=== PATIENT | female | born 1945 | race Caucasian/White ===

== ENCOUNTER 2024-04-29 10:08 | Inpatient (IN) | payer MEDICARE, BC, SELFPAY ==
[2024-04-29] VITALS (11 sets, daily range): BP systolic 95–151; BP diastolic 44–64; BMI 24.5
--- NOTE | 2024-04-29 10:59 | PTCARENOTE ---
Received patient as a direct admit from [facility]. Oriented patient to room as got her settled. Waiting for MD's for orders. Patient reports pain at upper abdomen rating 5/10. Patient has been NPO since last night, took morning
medications this morning but vomited after taking them. ST on monitor , low 100's. Spo2 96% on room air, 138/62, 19.
[2024-04-29 11:45] LABS: Hematocrit 27.3 % (37.0-47.0); Hemoglobin 9.4 g/dL (12.0-16.0); Mean Corp Hgb Conc. 34.4 g/dL (33.0-37.0); Mean Corpuscular Hgb 32.8 pg (27.0-31.0); Mean Corpuscular Volume 95.1 fL (81.0-99.0); Platelet Count 211 10^3/uL (130-400); Red Blood Cell Count 2.87 10^6/uL (4.20-5.40); Red Cell Dist. Width 14.1 % (11.5-14.5); White Blood Cell Count 22.3 10^3/uL (4.8-10.8)
[2024-04-29 11:52] LABS: ALT (SGPT) 167 U/L (0-35); AST (SGOT) 209 U/L (14-36); Albumin 3.5 g/dl (3.5-5.0); Alkaline Phosphatase 165 U/L (38-126); Blood Urea Nitrogen 36 mg/dl (7-17); Calcium 8.1 mg/dl (8.4-10.2); Carbon Dioxide 19 mmol/L (22-30); Chloride 109 mmol/L (98-107); Estimated Creatinine Clearance 35 ml/min; Glucose 186 mg/dl (70-99); Potassium 4.6 mmol/L (3.5-5.1); Sodium 142 mmol/L (135-145); Total Bilirubin 5.2 mg/dl (0.2-1.3); Total Protein 5.7 g/dl (6.3-8.2); eGFR 45.76
--- NOTE | 2024-04-29 12:02 | HPS.HSE ---
Addendum entered and electronically signed by Jose Razo MD 04/29/24 14:22:
78 female history of NIDDM, DDD, lumbar stenosis, hypertension, hypercholesterolemia presents from outside hospital for ERCP. Noted acute onset abdominal pain, epigastric, CT imaging demonstrating stone in the common bile duct along with
transaminitis elevated lipase. Therefore transferred to [facility] for ERCP evaluation. NPO. GI consult. Plan for ERCP later in the day.
If found to have elevated troponin as well. EKG pending on monitoring engineer. Cardiology consulted.
Original Note:
Family Physician
-
Family Physician: Ashleigh Otoole MD
Chief Complaint
-
Abdominal pain
History of Present Illness
78 yr old female with history of cholelithiasis (remote), NIDDM, DDD, lumbar stenosis, HTN, hypercholesterolemia, recurrent UTIs, who was transferred to from [facility] after she presented there at 2am with abdominal pain. While I don't
have access to records, history from the patient indicates that imaging results show cholelith in common bile duct with transaminitis and elevated lipase.
Patient had dinner at 6 PM yesterday with no complaints. Sudden onset of severe epigastric abdominal pain starting 9 PM last night with nausea and vomiting. She tried to take her morning medications this morning but threw them up. She has had no
solids, and has been unable to keep liquids down since.
She reports chills, nausea/ excess burping, normal bowel movement and normal flatus. Denies fever, bloating, or urinary symptoms.
Pain was controlled with Morphine at the time of my exam.
Medical History
Past Medical History
Past Medical History: Reports HTN, Hypercholesterolemia and NIDDM
Past Surgical History: Reports , Gynocological (tubal ligation), Orthopedic (left carpal tunnel release) and Other (cataract)
Social History
Tobacco: Non-smoker
Alcohol: None
Drug: None
Personal:
Living: With Family
Family History
Family History: Not pertinent
Allergies / Home Medications
Allergies reflects when Allergies were last updated in [facility].
Home Medications with original date entered in [facility]
Allergy/Medication List:
Allergies
Allergy/AdvReac Type Severity Reaction Status Date / Time
No Known Allergies Allergy Verified 04/29/24 11:05
Home Medications
Amlodipine Besylate 10 mg PO DAILY 04/29/24
B12 04/29/24
Prolia 60 mg SC 04/29/24
Trulicity 1.5 mg SC DAILY 04/29/24
Vitamin D3 04/29/24
alprazolam 0.5 mg HSPRN PRN sleep 04/29/24
carvedilol 6.25 mg PO BID 04/29/24
fenofibrate 48 mg PO DAILY 04/29/24
gabapentin 300 mg PO TID 04/29/24
metformin 1,000 mg PO BID 04/29/24
rosuvastatin 10 mg PO DAILY 04/29/24
Review of Systems
-
History Source: Patient
Constitutional: Reports Chills; Denies Fever or Night Sweats
Respiratory: Denies Trouble Breathing
Cardiac: Denies Chest Pain or Palpitations
Abdomen/GI: Reports Abdominal Pain, Nausea and Vomiting; Denies Diarrhea, Constipated or Bloody Stools
: Denies Dysuria, Difficulty Voiding or Bleeding
Physical Exam
Physical Exam
General: Well Developed, Well Nourished, No Apparent Distress and Comfortable
HEENT: NormoCephalic and Other (dry mucous membranes)
Respiratory: Clear and Non Labored Respirations; No Wheezes, Rales, Rhonchi or Crackles
Cardiac: S1/S2, Regular Rhythm and Murmur (systolic); No Peripheral Edema or Calf Tenderness
GI: Soft, Non Distended, Normal Bowel Sounds, Tender (RUQ, epigastrium) and Other (ayala's sign positive. no rebound or guarding)
Genito-urinary: No costovertebral tender
Musculoskeletal: No Clubbing, No Cyanosis and No Edema
Skin: Warm and Dry
Neuro: Awake and Alert
Psych: Calm
Laboratory Results
-
04/29/24 11:
04/29/24:
Laboratory Results
Total Bilirubin 5.2 mg/dl (0.2-1.3) H 04/29/24:
AST 209 U/L (14-36) H 04/29/24:
ALT 167 U/L (0-35) H 04/29/24:
Alkaline Phosphatase 165 U/L (38-126) H 04/29/24:
Impression/Plan
-
IMPRESSION: 78 year old female who presents with RUQ and epigastric abdominal pain
PLAN:
Abdominal pain
Severe RUQ and epigastric pain. Known remote history of cholelithiasis. Likely choledocholithiasis
Leukocytosis, transaminitis, hyperbilirubinemia
- Get lipase
- Pain control, IVF
- Will consult GI, potential ERCP
- Surgery consult
Leukocytosis:
Likely reactive. Afebrile
- Monitor, follow temperature curve
Non insulin dependent diabetes mellitus:
- Hold Metformin
- SSI, accuchecks, carb controlled diet when diet is resumed
Hyperlipidemia:
- Hold fenofibrate and Rosuvastatin given transaminitis
CKD
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
- Cr 1.2, unknown baseline
- avoid nephrotoxic agents
- Continue IVF
Hypertension:
- hold Amlodipine
- Continue Carvedilol
DDD/lumbar stenosis:
DVT ppx: SCDs
Code status: Full code
[2024-04-29 12:17] LABS: INR 1.12; PT 14.3 Sec (11.4-14.6)
[2024-04-29 12:18] LABS: APTT 25.7 Sec (23.4-35.0)
[2024-04-29 12:36] LABS: Troponin I 0.354 ng/ml
[2024-04-29] MEDS: MORPHINE SULFATE 2 MG IV (12:36)
[2024-04-29] MEDS: NSS 1000 IV (12:37)
[2024-04-29] MEDS: FLUSH (NSS) 1 FLUSH IV (12:38)
[2024-04-29 14:03] LABS: Absolute Neutrophils -Man Diff 20.5 10^3/uL (1.4-6.5); Band Neutrophils 12 % (0-3); Lymphocytes 3 % (20-51); Monocytes 5 % (2-9); Platelets Checked Yes; Segmented Neutrophils 80 % (42-75)
[2024-04-29 14:04] LABS: Anisocytosis 1+; Hypochromasia 1+; Normal RBC Morphology No; Total Cells Counted 100
[2024-04-29 14:55] LABS: Lipase 476 U/L (23-300)
--- NOTE | 2024-04-29 15:38 | CON.CAR ---
Addendum entered and electronically signed by Marcin Solano MD 04/30/24 11:34:
Please see my full note to follow on 30 April
Addendum entered and electronically signed by Yareli Escobar DO 04/29/24 19:35:
I saw and examined the patient.
The Voice Systems Engineer's note was reviewed and I agree with the note.
Comment: Patient seen and examined in IMU room with 3356 after being transferred from [facility] for ERCP. at bedside. Patient is an 78 yo F with PMH of HTN, HLD, DM2, spinal stenosis, essential tremor, recurrent UTIs, heart
murmur followed by [facility] who presented to [facility] due to abd pain which started yesterday around 9PM After several hours of constant upper quadrant abdominal pain that was severe resulting in nausea and vomiting . She ate around
6PM yesterday. She was diagnosed with choledocholithiasis and was transferred to for ERCP. In [place] ER was noted to have elevated troponin of 101 (different assay than completed here). This was reviewed with cardiology per [place] ER
notes and felt to be cardiac strain rather than primary cardiac event;Cardiology was not consulted. Trop here on arrival 0.354. No CP. EKG SR with RBBB, stable to EKG completed at [place]. Cardiology consulted for eval of elevated troponin. Need
for urgent ERCP due to uptrending lactic and elevated white count. Abd pain improved with morphine. Patient denies a history of known coronary artery stenosis/prior MD, arrhythmia, heart failure, stroke or TIA. She denies recent stress testing.She
is relatively sedentary with severe back pain that limits walking and standing; estimated exercise capacity less than 4 METS
General: No acute distress, AAOX3
Neck: Negative JVD
Heart: Regular, positive S1/S2, 3/6 SM at apex
Lungs: CTA b/l, negative wheezes/rales/rhonchi
Abd:Distended abdomen tender upper quadrants without rebound, Positive bowelSounds
Ext: No edema
Neuro: nonfocal
Plan:
-Patient presents in transfer from [facility] for ERCP due to concern for choledocholithiasis/cholangitis For urgent ERCP with GI
-Cardiology consulted for preoperative cardiac risk assessment:Patient has outpatient cardiac follow-up routinely with [facility] in [place] for a valve disease. On exam she has a murmur consistent with mitral regurgitation. She has no
history of known coronary artery disease or heart failure. She has no history of cardiac arrhythmia or stroke. She is not on diuretics as an outpatient. Bedside echocardiogram shows normal biventricular size and systolic function with no regional
wall motion abnormalities and ejection fraction estimated 60 to 65%. She has mitral sclerosis with mild prolapse of the posterior leaflet associated with multiple jets of likely moderate eccentric mitral regurgitation. Aortic valve is sclerotic
without significant stenosis with no significant aortic regurgitation. Moderate tricuspid regurgitation with estimated pulmonary artery pressures elevated at 60-65%. No pericardial effusion. Her twelve-lead EKG is [facility] yesterday which shows normal sinus rhythm with a right bundle branch block and a T wave abnormality considering inferior ischemia. She has abnormal cardiac troponins with no reports of chest pain and initial troponin here of 0.354.
Discussed with GI services. Patient is elevated risk but not prohibitive and she may proceed.
-Please check postop twelve-lead EKG
-Trend cardiac troponins
-Start aspirin 81 mg daily
-Trend cardiac troponin to peak- Eventual ischemic evaluation
-Attempting to obtain outpatient cardiac records from her automobile salesman
-reviewed records from [place] 04/29/24 including ER notes, EKG.
cholangitis with choledocholithiasis/cholelithiasis with elevated transaminase
-Urgent ERCP given worsening leukocytosis, fever and lactic acid elevation
-Monitor LFTs following procedures
-GI following
Abnormal cardiac troponin with abnormal EKG
-No chest pain or pressure
-Trend cardiac troponin
-2D echocardiogram at bedside without regional wall motion abnormality and preserved LV systolic function
-Start aspirin when okay with GI
-Eventual ischemic evaluation
Mitral sclerosis/mitral valve prolapse with at least moderate mitral regurgitation
-Monitor volume status. Currently euvolemic/mildly dehydrated
-Await records from outpatient automobile salesman
History of hypertension�blood pressures are stable. Monitor closely
History of dyslipidemia�rosuvastatin and fenofibrate currently held in the setting of LFTs. Resume when able
History of type 2 diabetes mellitus on metformin
Will follow with you
Original Note:
Consultation
Consultation Request
Date/Time Consultation Performed: 04/29/24
Requesting Provider: Dr. Peralta
Performing Provider: Katie Alonzo PA-C for Dr. Escobar
Reason for Consultation: elevated troponin
Medical History
-
Chief Complaint: abd pain
History of Present Illness:
Patient is an 78 yo F with PMH of HTN, HLD, DM2, spinal stenosis, essential tremor, recurrent UTIs, [facility] murmur [facility] who presented to [facility] due to abd pain which started yesterday around 9PM. She ate around 6PM
yesterday. Reports pain was severe and constant. She threw up several hours later and came to [place] ER. She was diagnosed with choledocholithiasis and was transferred to for ERCP. In [place] ER was noted to have elevated troponin of 101
(different assay than completed here). This was reviewed with cardiology per [place] ER notes and felt to be cardiac strain rather than primary cardiac event. Trop here on arrival 0.354. No CP. EKG SR with RBBB, stable to EKG completed at .
[facility]. Cardiology consulted for eval of elevated troponin. Need for urgent ERCP due to uptrending lactic and elevated white count. Abd pain improved with morphine.
PMH:
HTN
HLD
DM2
spinal stenosis
essential tremor
recurrent UTIs
heart murmur
Past Medical History
Past Medical History: Other (in HPI)
Social History
Tobacco: Non-Smoker
Personal:
Living: With Family
Allergies / Home Medications
Allergy/AdvReac Type Severity Reaction Status Date / Time
No Known Allergies Allergy Verified 04/29/24 11:05
�Medication �Instructions �Recorded �Confirmed �Type
Amlodipine Besylate 10 mg PO DAILY 04/29/24 04/29/24 History
B12 04/29/24 History
Prolia 60 mg SC 04/29/24 History
Trulicity 1.5 mg SC DAILY 04/29/24 04/29/24 History
Vitamin D3 04/29/24 History
alprazolam 0.5 mg HSPRN PRN sleep 04/29/24 04/29/24 History
carvedilol 6.25 mg PO BID 04/29/24 04/29/24 History
fenofibrate 48 mg PO DAILY 04/29/24 04/29/24 History
gabapentin 300 mg PO TID 04/29/24 04/29/24 History
metformin 1,000 mg PO BID 04/29/24 04/29/24 History
rosuvastatin 10 mg PO DAILY 04/29/24 04/29/24 History
Review of Systems
-
History Source: Patient
All other systems: Negative unless noted
Physical Exam
Vital Signs
Temp Pulse Resp BP Pulse Ox
99.5 F 89 15 111/56 95
04/29/24 10:26 04/29/24 14:45 04/29/24 14:45 04/29/24 14:00 04/29/24 14:45
Lab Results
04/29/24 11:28
04/29/24 11:28
Troponin I Cancelled 04/29/24 15:24
Physical Exam
General: No Apparent Distress, Comfortable and Other (mild jaundice)
HEENT: Normocephalic, Anicteric and Moist Mucous Membranes
Respiratory: Clear and Non Labored Respirations
Cardiac: S1/S2, Regular Rhythm and Murmur
GI: Soft, Non Tender, Non Distended and Normal Bowel Sounds
Musculoskeletal: No Clubbing, No Cyanosis and No Edema
Skin: Warm and Dry
Neuro: AO x 3
Impression / Plan
-
Primary Bus Cleaner: [facility]
Assessment:
-Transfer from [place] for ERCP
-Choledocholithiasis/cholelithiasis, concern for cholangitis
-Transaminitis
-Fever
-Leukocytosis
-Elevated lipase
-Elevated troponin
-HTN
-HLD
-DM2
-spinal stenosis
-essential tremor
-recurrent UTIs
-heart murmur
Plan:
-Patient presents in transfer from [facility] for ERCP due to concern for choledocholithiasis/cholangitis.
-reviewed records from [place] 04/29/24 including ER notes, EKG. attempting to obtain records from OP automobile salesman for review
-Trop here uptrending from [place] at 0.354. stat repeat trop pending. no CP
-EKG SR with RBBB, stable compared to that from [place] earlier today
-urgent echo
-ideally would complete ERCP today per GI. on IV abx
-if echo ok and trop flat/downtrending, ok to proceed with urgent ERCP
-d/w GI
Data Reviewed
-
EKG: Tracing Personally Visualized and interpreted
CT Scan: Report Reviewed by me
Labs: Labs Reviewed by me
Old Records: Reviewed
--- NOTE | 2024-04-29 15:47 | CON.GI ---
Addendum entered and electronically signed by Agustín Squires MD 04/29/24 16:45:
I saw and examined the patient.
The PA's note was reviewed and I agree with the note.
Comment:
78 year old female with h/o DM, HTN, hyperlipidemia, and recurrent UTIs p/w abdo pain and found to be cholangitic. Leukocytosis of 12k on admission, lactic acid elevation of 2.2. LFT elevated with bili 4.1 with a direct of 2.9, AST 199, ALT 177.
Febrile at [facility]. Worsening leukocytosis with WBC 22k, total bilirubin 5.2, AST 209, ALT 167, alk phos 165 today.
Impression / Rec:
1. Cholangitis - admitted with abdo pain, CT at [facility] showed choledocholithiasis/cholelithiasis. LFT elevated in obstructive pattern, febrile at [facility] and worsening leukocytosis are all consistent with cholangitis.
Started on zosyn. Hemodynamically stable. Will proceed with urgent ERCP.
2. Elevated troponin - 0.354; had bedside echo which was essentially normal. Will proceed with ERCP as intended.
Original Note:
Consultation
-
Date/Time Consultation Requested: 04/29/24 1149
Date/Time Consultation Performed: 04/29/24 1500
Requesting Provider: Dr. Irvin
Performing Provider: Dr. Squires/DESIREE Tuttle
Reason for Consultation: choledocholithiasis
Medical History
Chief Complaint / HPI
Chief Complaint: choledochilithiasis, TRF from [facility]
History of Present Illness:
78-year-old female with past medical history of diabetes, degenerative disc disease, lumbar stenosis, hypertension, hyperlipidemia, recurrent UTIs presents to [facility] from [facility] for choledocholithiasis and need for
ERCP. We are asked to evaluate for the same. The patient states that 9 PM last evening she developed acute onset of epigastric discomfort. This was associated with nausea and vomiting. The patient states that she ate a couple hours prior that
was chicken lettuce wraps. She states that she had significant discomfort that she describes as dull, constant, nonradiating, nothing made better or worse. By 1 AM she started trembling in such pain that her brought her to the emergency
department at [facility]. The patient was afebrile there. She had a heart rate of 111 and a BP of 124/51. She was found to have a WBC count of 12.2, hemoglobin 10.6, hematocrit of 30.6, platelets of 236, lactic acid elevation of 2.2,
blood cultures x 2 were drawn. Sodium 138, potassium 4.4, chloride 106, CO2 16, glucose 208, BUN 40, creatinine 1.24, total bilirubin 4.1 with a direct of 2.9, AST 199, ALT 177, initial high-sensitivity troponin performed at 0546 was 101 this was
repeated and was 201. EKG that showed sinus tachycardia with first-degree AV block. Right bundle branch block. T wave abnormality, consider inferior lateral ischemia. Ultrasound was performed that showed liver 16.9 cm in length. Normal
echogenicity. No mass. There is intrahepatic and extrahepatic biliary dilatation. Gallbladder numerous gallstones present. Negative Plunkett sign. CBD 12 mm. Choledocholithiasis present. Pancreas no mass or ductal dilatation. Right kidney 9.6
cm. No hydronephrosis, suspicious mass or calculus. Multiple renal cyst present. CT abdomen and pelvis with contrast showed severe choledocholithiasis. Intrahepatic and extrahepatic biliary dilatation. Gallstone present. Mild gallbladder wall
thickening present. Ultrasound recommended. The patient was given Zosyn while at [facility]. She was also given 2 doses of morphine while there. This relieves her symptoms. The patient was then transferred to [facility]
where she remained n.p.o. EKG was obtained. Cardiology consulted. Labs obtained. Patient's vital signs here 99.5, pulse 89, 111/56, 15, pulse ox 95% on room air. WBC 22.3, hemoglobin 9.4, hematocrit 27.3, platelets 211, bands 12, PT 14.3, INR
1.12, sodium 142, potassium 4.6, chloride 109, CO2 19, BUN 36, creatinine 1.12, glucose 186, calcium 8.1, total bilirubin 5.2, AST 209, ALT 167, alk phos 165, troponin 0. 354, lipase 476. No further imaging she has received an additional dose of
morphine while here.
Past Medical History
Past Medical History: HTN, Hypercholesterolemia and Other (Diabetes, degenerative disc disease, lumbar stenosis, recurrent UTIs)
Past Surgical History: , Gynecological (Tubal ligation), Orthopedic (Left carpal tunnel release) and Other (Cataract)
Social History
Tobacco: Non-Smoker
Alcohol: None
Drug: None
Personal:
Living: With Family
Family History
Family History: Other (No family history of gastrointestinal malignancy or IBD)
Allergies / Home Medications
Allergy/AdvReac Type Severity Reaction Status Date / Time
No Known Allergies Allergy Verified 04/29/24 11:05
�Medication �Instructions �Recorded
Amlodipine Besylate 10 mg PO DAILY 04/29/24
B12 04/29/24
Prolia 60 mg SC 04/29/24
Trulicity 1.5 mg SC DAILY 04/29/24
Vitamin D3 04/29/24
alprazolam 0.5 mg HSPRN PRN sleep 04/29/24
carvedilol 6.25 mg PO BID 04/29/24
fenofibrate 48 mg PO DAILY 04/29/24
gabapentin 300 mg PO TID 04/29/24
metformin 1,000 mg PO BID 04/29/24
rosuvastatin 10 mg PO DAILY 04/29/24
Review of Systems
-
All other systems: A 12 pt ROS was Negative except as stated above in HPI
Vital Signs
Temp Pulse Resp BP Pulse Ox
99.5 F 89 15 111/56 95
04/29/24 10:26 04/29/24 14:45 04/29/24 14:45 04/29/24 14:00 04/29/24 14:45
Physical Exam
Exam
General: No Apparent Distress
HEENT: Other (Sclera mildly icteric)
Respiratory: Clear
Cardiac: Regular Rhythm and Murmur
GI: Soft, Non Distended, Normal Bowel Sounds and Other (Mild right upper quadrant/epigastric tenderness)
Musculoskeletal: No Edema
Skin: Warm and Dry
Neuro: AO x 3
Psych: Calm
Results
WBC 22.3 10^3/uL (4.8-10.8) H 04/29/24 11:28
Hgb 9.4 g/dL (12.0-16.0) L 04/29/24 11:
Hct 27.3 % (37.0-47.0) L 04/29/24 11:28
MCV 95.1 fL (81.0-99.0) 04/29/24 11:28
Plt Count 211 10^3/uL (130-400) 04/29/24 11:28
PT 14.3 Sec (11.4-14.6) 04/29/24 11:39
INR 1.12 04/29/24 11:39
APTT 25.7 Sec (23.4-35.0) 04/29/24 11:39
Sodium 142 mmol/L (135-145) 04/29/24 11:28
Potassium 4.6 mmol/L (3.5-5.1) 04/29/24 11:
Chloride 109 mmol/L (98-107) H 04/29/24 11:28
Carbon Dioxide 19 mmol/L (22-30) L 04/29/24 11:28
BUN 36 mg/dl (7-17) H 04/29/24 11:28
Creatinine 1.2 mg/dL (0.6-1.0) H 04/29/24 11:28
Calcium 8.1 mg/dl (8.4-10.2) L 04/29/24 11:28
Total Bilirubin 5.2 mg/dl (0.2-1.3) H 04/29/24 11:28
AST 209 U/L (14-36) H 04/29/24 11:28
ALT 167 U/L (0-35) H 04/29/24 11:28
Alkaline Phosphatase 165 U/L (38-126) H 04/29/24 11:28
Lipase 476 U/L (23-300) H 04/29/24 11:28
Diagnostic Image Results:
Prior GI Procedures:
EGD: Never
Colonoscopy: Virtual colonoscopy approximately 8 to 10 years ago
Assessment / Plan
-
78-year-old female with past medical history of diabetes, degenerative disc disease, lumbar stenosis, hypertension, hyperlipidemia, recurrent UTIs presents to [facility] from [facility] for choledocholithiasis and need for
ERCP. She was found to have a WBC count of 12.2, hemoglobin 10.6, hematocrit of 30.6, platelets of 236, lactic acid elevation of 2.2, blood cultures x 2 were drawn. Sodium 138, potassium 4.4, chloride 106, CO2 16, glucose 208, BUN 40, creatinine
1.24, total bilirubin 4.1 with a direct of 2.9, AST 199, ALT 177. Repeat labs here WBC 22.3, hemoglobin 9.4, hematocrit 27.3, platelets 211, bands 12, PT 14.3, INR 1.12, sodium 142, potassium 4.6, chloride 109, CO2 19, BUN 36, creatinine 1.12,
glucose 186, calcium 8.1, total bilirubin 5.2, AST 209, ALT 167, alk phos 165, worsening white count and bands after receiving Zosyn at [facility] with concerns for cholangitis. Patient is starting to develop fever. Cardiology has
seen patient given elevated troponin for restratification as patient and need for ERCP. Discussed with Cardiology and will proceed with ERCP. Discussed with patient and as well.
Impression:
Choledocholithiasis with signs and symptoms of cholangitis
Elevated lipase
Elevated troponin
Plan:
-Patient n.p.o.
-Continue IV fluids
-Start Zosyn 3.375 gm IV q6 here, did receive Zosyn 4.5 gm IV at [facility] at 0637
-ERCP today
-CBC, CMP, direct bilirubin in am
-Further recommendations to be forthcoming
-
-
Thank you for consultation and allowing me to participate in the patient's care. Please call the exceptional children teacher GI physician during the after hours with any questions or concerns.
[2024-04-29] MEDS: ZOSYN 50 IV ×2 (16:26→21:19)
[2024-04-29 16:31] LABS: Glucose - Point of Care 219 mg/dl (70-99)
--- NOTE | 2024-04-29 16:55 | PTCARENOTE ---
Patient NPO for ERCP. IV fluids and zosyn infusing as ordered. Patient pain controlled with one dose of IV morphine sulfate. Echo done at bedside. Patient off unit to GI lab. Report given to Jennifer ECHOLS. Patient to go to [address] [place] [id number] post
procedure.
[2024-04-29 16:58] LABS: Troponin I 0.508 ng/ml
[2024-04-29 17:54] LABS: Glucose - Point of Care 263 mg/dl (70-99)
[2024-04-29] MEDS: NOVOLOG vial 2 UNITS SC (17:58)
[2024-04-29] MEDS: NEURONTIN PO ×2 (18:37→21:16)
[2024-04-29] MEDS: NOVOLOG FLEXPEN-LOW RESISTANCE SC (18:38)
--- NOTE | 2024-04-29 18:45 | PTCARENOTE ---
Pt received from the PACU post ERCP AAOX3, HRR, lungs are clear, resp. easy. Pt and Pt's instructed on plan of care, Both Pt and verbalized understanding of instructions. Pt arrived at shift change. Verbal report given to the on
coming shift RN. Call kellogg is within reach.
[2024-04-29] MEDS: LR 500 IV (19:21)
[2024-04-29] MEDS: LOW STRENGTH ASPIRIN 81 MG PO (20:41)
[2024-04-29 21:39] LABS: Troponin I 0.493 ng/ml
[2024-04-30] MEDS: NSS 1000 IV (01:28)
[2024-04-30 03:00] VITALS: BP 102/48
[2024-04-30] MEDS: ZOSYN 50 IV ×4 (04:49→22:20)
[2024-04-30 05:35] LABS: Hematocrit 23.2 % (37.0-47.0); Hemoglobin 7.9 g/dL (12.0-16.0); Mean Corp Hgb Conc. 34.1 g/dL (33.0-37.0); Mean Corpuscular Hgb 32.1 pg (27.0-31.0); Mean Corpuscular Volume 94.3 fL (81.0-99.0); Mean Platelet Volume 11.7 fL (7.4-10.4); Platelet Count 185 10^3/uL (130-400); Red Blood Cell Count 2.46 10^6/uL (4.20-5.40); Red Cell Dist. Width 14.3 % (11.5-14.5); White Blood Cell Count 16.6 10^3/uL (4.8-10.8)
[2024-04-30 06:00] LABS: ALT (SGPT) 148 U/L (0-35); AST (SGOT) 170 U/L (14-36); Albumin 2.8 g/dl (3.5-5.0); Alkaline Phosphatase 124 U/L (38-126); Blood Urea Nitrogen 38 mg/dl (7-17); Calcium 7.2 mg/dl (8.4-10.2); Carbon Dioxide 16 mmol/L (22-30); Chloride 111 mmol/L (98-107); Estimated Creatinine Clearance 30 ml/min; Glucose 118 mg/dl (70-99); Potassium 4.2 mmol/L (3.5-5.1); Sodium 143 mmol/L (135-145); Total Bilirubin 4.6 mg/dl (0.2-1.3); Total Protein 5.1 g/dl (6.3-8.2); eGFR 38.03
[2024-04-30 07:05] VITALS: BP 100/45
[2024-04-30] MEDS: 0.45%NACL 1000 IV (09:37)
[2024-04-30] MEDS: COREG 3.125 MG PO ×2 (09:39→20:53)
[2024-04-30] MEDS: LOW STRENGTH ASPIRIN 81 MG PO (09:39)
[2024-04-30] MEDS: NEURONTIN 300 MG PO (09:39)
[2024-04-30 09:41] LABS: Glucose - Point of Care 164 mg/dl (70-99)
[2024-04-30] MEDS: NOVOLOG FLEXPEN-LOW RESISTANCE 1 UNITS SC (10:09)
--- NOTE | 2024-04-30 10:56 | W.PN.GI.CBS2 ---
Today's Communication / Plan
-
Advance diet as tolerated, GI s/o.
Assessment / Plan
-
78-year-old female with past medical history of diabetes, degenerative disc disease, lumbar stenosis, hypertension, hyperlipidemia, recurrent UTIs presents to [facility] from [facility] for choledocholithiasis and need for
ERCP. She was found to have a WBC count of 12.2, hemoglobin 10.6, hematocrit of 30.6, platelets of 236, lactic acid elevation of 2.2, blood cultures x 2 were drawn. Sodium 138, potassium 4.4, chloride 106, CO2 16, glucose 208, BUN 40, creatinine
1.24, total bilirubin 4.1 with a direct of 2.9, AST 199, ALT 177. Repeat labs here WBC 22.3, hemoglobin 9.4, hematocrit 27.3, platelets 211, bands 12, PT 14.3, INR 1.12, sodium 142, potassium 4.6, chloride 109, CO2 19, BUN 36, creatinine 1.12,
glucose 186, calcium 8.1, total bilirubin 5.2, AST 209, ALT 167, alk phos 165, worsening white count and bands after receiving Zosyn at [facility] with concerns for cholangitis. Patient is starting to develop fever. Cardiology has
seen patient given elevated troponin for restratification as patient and need for ERCP. Discussed with Cardiology and will proceed with ERCP. Discussed with patient and as well.
ERCP yesterday with extraction of multiple stones, also some pus drained. No stent placed as balloon sphincteroplasty was performed with good dilation of ampulla. Pt feels much improved from abdo pain. Leukocytosis/LFT improving. Can advance
diet as tolerated, cholecystectomy as per surgery, GI s/o.
Total Time Spent with Patient (in minutes): 35
Subjective
Subjective
Date of Service: April 30, 2024
Feeling much improved today.
Objective
Data Reviewed
Laboratory Data:
Laboratory Results
04/30/24 04:20
04/30/24 04:20
Laboratory Results
PT 14.3 Sec (11.4-14.6) 04/29/24 11:39
INR 1.12 04/29/24 11:39
APTT 25.7 Sec (23.4-35.0) 04/29/24 11:39
Total Bilirubin 4.6 mg/dl (0.2-1.3) H 04/30/24 04:20
AST 170 U/L (14-36) H 04/30/24 04:20
ALT 148 U/L (0-35) H 04/30/24 04:20
Alkaline Phosphatase 124 U/L (38-126) 04/30/24 04:20
Lipase 476 U/L (23-300) H 04/29/24 11:28
Vital Signs and I&O:
Vital Signs
Temp Pulse Resp BP Pulse Ox
98.6 F 73 16 100/45 97
04/30/24 07:05 04/30/24 07:05 04/30/24 07:05 04/30/24 09:39 04/30/24 07:05
I&O
04/29/24 04/30/24 05/01/24
06:59 06:59 06:59
Intake Total 640 / 640 370 / 370
Balance 640 / 640 370 / 370
--- NOTE | 2024-04-30 11:01 | W.PN.HOSP.TC ---
Addendum entered and electronically signed by Jose Razo MD 04/30/24 13:40:
Presented from outside hospital for ERCP evaluation as imaging at that hospital demonstrated choledocholithiasis. Also noted to have transaminitis. She is now s/p ERCP on 04/29/2024 with removal of multiple stones and purulent drainage. Noted at
previous facility that she was febrile. After concern for cholangitis. At this time states she feels much better no further pain no nausea vomiting. No fevers.
12 point ROS completed at all negative apart from as above.
Imaging
FINDINGS/IMPRESSION:
1. ERCP images obtained during ongoing sphincterotomy
Impression:
- Multiple filling defects consistent with stones were
seen on the cholangiogram.
- The entire main bile duct was mildly dilated.
- Choledocholithiases were found. Complete removal was
accomplished by biliary sphincterotomy and balloon
extraction.
- A biliary sphincterotomy was performed.
- Major papilla was successfully dilated.
- The biliary tree was swept and pus and sludge were
found.
2c echo
CONCLUSIONS
Normal left ventricular size and systolic function with normal regional wall
motion
Mild concentric left ventricular hypertrophy
Left ventricular ejection fraction estimated by Scott's method 60-65%
Grade 1 diastolic dysfunction
Normal RV size and systolic function
Mitral sclerosis with mild prolapse of the posterior leaflet associate with
multiple jets of eccentric mitral regurgitation that is likely moderate
Trileaflet sclerotic aortic valve without significant stenosis. No aortic
regurgitation
Moderate tricuspid regurgitation
Estimated pulmonary artery pressure of 60-65 mmHg. Assuming a right atrial
pressure of 3 mmHg.
Normal pericardium without effusion.
No prior study available for comparison.
Physical Exam
NAD, resting comfortably in bed, jaundice
Scleral icterus
Moist mucous membranes
No JVD
CTA bilateral
Normal S1-S2 no murmurs
Soft nontender nondistended bowel sounds active
No peripheral pitting edema
Moves extremities spontaneously
AAOx3
Assessment and Plan
Sepsis (White count + HR + source).
-Board spectrum atb
-ID consult
-Unfortunatly no cultures obtained. Fortunatly, vitals and labs improving. WIll continue on current course
Acute cholangitis secondary to choledocholitasis
-S/p ERCP
-Continue IV Atb x3days per ERCP post op note
-CLD advance as tolerated
-Surgery consulted for potential need of elective/urgent cholecystectomy
-GI following
NSTEMI
-2d echo as above
-Down trending
-Per Cardiology outpatient eval with own junior oracle dba at the time of DC
-Asa daily
DM
-Stop metformin
-Accuchecks
-SSI
-BG 140-180
-CCDiet when able to tolerate PO
Original Note:
Today's Communication/Plan
-
Advance diet as tolerated. Continue IV abx, ID consult.
Assessment / Plan
Assessment / Plan
IMPRESSION: 78 year old female who presents with RUQ and epigastric abdominal pain. S/P ERCP. Concern for cholangitis with choledocholithiasis
PLAN:
Cholangitis:
Severe sudden onset RUQ and epigastric pain. Known remote history of cholelithiasis. S/P urgent ERCP with evacuation of choledocholithiases and purulent material
Leukocytosis, transaminitis, hyperbilirubinemia, elevated lipase. Febrile at [facility]
- Liver enzymes improving. Alk phos resolved. Bilirubin improving
- Pain control, IVF, Continue Zosyn
- Appreciate GI recs
- Will get surgery recs for potential cholecystectomy/surgery outpatient f/u
- Infectious disease consult
Non-ischemic myocardial injury:
Likely reactive
- Elevated troponin on arrival. Peak 0.508 with downward trend
- EKG with no acute ischemia, normal sinus rhythm and RBBB. No change following ERCP
- Appreciate cardiology recs. Currently on Asp 80
- Will need outpatient ischemic eval
Non insulin dependent diabetes mellitus:
- Hold Metformin
- SSI, accuchecks,
- Currently on clear liquids. Carb controlled diet when diet is resumed
Hyperlipidemia:
- Hold fenofibrate and Rosuvastatin given transaminitis
Hyperchloremic metabolic acidosis:
- Discontinue NS
- Gentle IVF with 1/2NS. will discontinue if tolerating clears
CKD
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
- Cr 1.2 on arrival, unknown baseline. Cr 1.4 today
- avoid nephrotoxic agents. Hold metformin
- Gentle IVF
- Will give Bicitra
Hypertension:
- hold Amlodipine
- Continue Carvedilol
DDD/lumbar stenosis:
DVT ppx: SCDs
Code status: Full code
Anticipated Discharge: Within 24 hours
Subjective/Interval History
-
Date of Service: April 30, 2024
s/p ERCP with extraction of cholelithiases and pus. Pt reports resolution of symptoms.
Objective Data
-
Labs:
Laboratory Results
04/30/24
04:20
WBC 16.6 H
Hgb 7.9 L
Hct 23.2 L
Plt Count 185
Sodium 143
Potassium 4.2
Chloride 111 H
Carbon Dioxide 16 L
BUN 38 H
Creatinine 1.4 H
Glucose 118 H
Calcium 7.2 L
Total Bilirubin 4.6 H
AST 170 H
ALT 148 H
Alkaline Phosphatase 124
Vital Signs:
Vital Signs
Temp Pulse Resp BP Pulse Ox
98.6 F 73 16 100/45 97
04/30/24 07:05 04/30/24 07:05 04/30/24 07:05 04/30/24 09:39 04/30/24 07:05
I&O
04/29/24 04/30/24 05/01/24
06:59 06:59 06:59
Intake Total 640 / 640 370 / 370
Balance 640 / 640 370 / 370
Review of Systems
-
History Source: Patient
Constitutional: Denies Fever or Chills
Respiratory: Denies Trouble Breathing
Cardiac: Denies Chest Pain or Palpitations
Abdomen/GI: Denies Abdominal Pain, Nausea, Vomiting or Diarrhea
Genitourinary: Denies Dysuria, Difficulty Voiding or Bleeding
Physical Exam
-
General: Well Developed, Well Nourished, No Apparent Distress and Comfortable
HEENT: Normocephalic and Atraumatic
Respiratory: Clear to Auscultation and Non Labored Respirations; Negative Wheezes, Rales, Rhonchi or Crackles
Cardiac: Regular Rhythm and Murmur (systolic); Negative S1/S2, Rub or Calf Tenderness
GI: Soft, Nontender, Nondistended, Normal Bowel Sounds and No Hepatosplenomegaly
Musculoskeletal: No Clubbing, No Cyanosis and No Edema
Skin: Warm and Dry
Neuro: Awake and Alert
Psych: Calm
--- NOTE | 2024-04-30 11:24 | CON.GS ---
Medical History
-
Chief Complaint: Abdominal pain
History of Present Illness:
Patient is an 78-year-old female who was transferred to [facility] yesterday after evaluation at [facility] for the acute onset of epigastric abdominal pain with nausea and vomiting was notable for choledocholithiasis as well as
cholelithiasis. She was cholangitic and urgently taken for ERCP sphincterotomy and removal/extraction of choledocholithiasis with GI service yesterday afternoon. General surgery consultation requested for discussions with patient regarding
indications for cholecystectomy.
This a.m. patient feels much better. Her abdominal pain is resolved. No significant residual tenderness or discomfort. No further nausea or vomiting. She started clear liquids for breakfast which she is tolerating without exacerbation of pain.
She remains jaundiced.
Past Medical History
Past Medical History: Other (Hypertension, hyperlipidemia, type 2 diabetes, lumbar spinal stenosis, essential tremor, mitral prolapse/sclerosis, recurrent UTIs)
Past Surgical History: Other (, tubal ligation)
Social History
Tobacco: Non-Smoker
Personal:
Living: With Family
Employment: Retired
Family History
Family History: Reviewed & Noncontributory
Allergies / Home Medications
Allergy/AdvReac Type Severity Reaction Status Date / Time
No Known Allergies Allergy Verified 04/29/24 11:05
�Medication �Instructions �Recorded �Confirmed �Type
Amlodipine Besylate 10 mg PO DAILY 04/29/24 04/29/24 History
B12 04/29/24 History
Prolia 60 mg SC 04/29/24 History
Trulicity 1.5 mg SC DAILY 04/29/24 04/29/24 History
Vitamin D3 04/29/24 History
alprazolam 0.5 mg HSPRN PRN sleep 04/29/24 04/29/24 History
carvedilol 3.125 mg PO BID 04/29/24 04/29/24 History
fenofibrate 48 mg PO DAILY 04/29/24 04/29/24 History
gabapentin 300 mg PO TID 04/29/24 04/29/24 History
metformin 1,000 mg PO BID 04/29/24 04/29/24 History
rosuvastatin 10 mg PO DAILY 04/29/24 04/29/24 History
Review of Systems
-
History Source: Patient
All other systems: Negative unless noted
A 10 point review of systems was completed, and was negative except as per HPI.
Physical Exam
Vital Signs
Temp Pulse Resp BP Pulse Ox
98.6 F 73 16 100/45 97
04/30/24 07:05 04/30/24 07:05 04/30/24 07:05 04/30/24 09:39 04/30/24 07:05
04/29/24 04/30/24 05/01/24
06:59 06:59 06:59
Actual Weight 68.9 kg
Body Mass Index (BMI) 24.5
Lab Results
04/30/24 04:20
WBC 16.6 10^3/uL (4.8-10.8) H 04/30/24 04:20
Hgb 7.9 g/dL (12.0-16.0) L 04/30/24 04:20
Hct 23.2 % (37.0-47.0) L 04/30/24 04:20
Plt Count 185 10^3/uL (130-400) 04/30/24 04:20
Physical Exam
General: Well Developed, Well Nourished, No Apparent Distress and Comfortable
HEENT: Scleral Icterus
Respiratory: Non Labored Respirations
GI: Soft, Non Tender and Non Distended
Skin: Jaundice
Neuro: AO x 3
Psych: Calm
Assessment / Plan
-
Assessment: 78-year-old female initially admitted with ascending cholangitis/choledocholithiasis now postprocedural day #1 status post ERCP, sphincterotomy and stone extraction.
Ultrasound imaging as well as CT imaging at [facility] confirmed presence of both cholelithiasis as well as choledocholithiasis
ERCP images personally reviewed and discussed with Dr. Squires. There was opacification of cystic duct as well as gallbladder indicating there is no component at this point of cystic duct obstruction/acute calculus cholecystitis
Reviewed with patient indications for cholecystectomy secondary to admission with gallstone mediated complication. Patient would like to proceed with cholecystectomy at appropriate timing.
No clinical sign/symptoms suggestive of acute cholecystitis therefore cholecystectomy could either be performed at this index hospitalization or deferred to a later date. Patient prefers this hospitalization if cleared by cardiology.
Plan: Possible cholecystectomy but there are no strong indications on need for urgent cholecystectomy (choledocholithiasis taking care of and no evidence of cystic duct obstruction from gallstones)
If cleared by cardiology could perform cholecystectomy at this hospitalization
If felt that further cardiac optimization and workup warranted then reasonable to defer cholecystectomy to outpatient
Will continue to follow awaiting cardiology recommendations to aid on decision regarding timing of cholecystectomy.
[2024-04-30 11:30] VITALS: BP 123/52
[2024-04-30 11:31] LABS: Glycohemoglobin (HgbA1c) 6.8 % (4.0-5.6)
--- NOTE | 2024-04-30 11:34 | W.PN.CARDCBS ---
Today's Communication / Plan
-
Troponins trending down no need to check any further
Outpatient ischemic evaluation which can be performed through her [place] medicine at [facility]
She can proceed to any necessary or emergent procedure as necessary given her cholangitis
Will follow with you
Impression / Plan
-
Primary Conservation Officer: [facility]
Assessment:
-Transfer from [place] for ERCP
-Choledocholithiasis/cholelithiasis, concern for cholangitis
-Transaminitis
-Fever
-Leukocytosis
-Elevated lipase
-Elevated troponin
-HTN
-HLD
-DM2
-spinal stenosis
-essential tremor
-recurrent UTIs
-heart murmur
Plan:
-Patient presents in transfer from [facility] for ERCP due to concern for choledocholithiasis/cholangitis.
-reviewed records from [place] 04/29/24 including ER notes, EKG. attempting to obtain records from OP systems architecture analyst for review
-Troponins are now trending down
-EKG SR with RBBB, stable compared to that from [place] earlier today
-She can proceed to what ever procedure is necessary and we will follow throughout
-Outpatient ischemic evaluation
-d/w GI
Progress Note - Conservation Officer
Subjective
Date of Service: April 30, 2024
Total Time Spent with Patient (in minutes): No chest pain or pressure, no dyspnea, creatinine noted
Objective
Labs:
04/30/24 04:20
Labs
Hgb 7.9 g/dL (12.0-16.0) L 04/30/24 04:20
Hct 23.2 % (37.0-47.0) L 04/30/24 04:20
Plt Count 185 10^3/uL (130-400) 04/30/24 04:20
PT 14.3 Sec (11.4-14.6) 04/29/24 11:39
INR 1.12 04/29/24 11:39
APTT 25.7 Sec (23.4-35.0) 04/29/24 11:39
Sodium 143 mmol/L (135-145) 04/30/24 04:20
Potassium 4.2 mmol/L (3.5-5.1) 04/30/24 04:20
BUN 38 mg/dl (7-17) H 04/30/24 04:20
Creatinine 1.4 mg/dL (0.6-1.0) H 04/30/24 04:20
Glucose 118 mg/dl (70-99) H 04/30/24 04:20
Troponins
04/29/24 04/29/24 04/29/24
11:39 15:24 16:18
Troponin I 0.354 H* Cancelled 0.508 H* D
04/29/24
21:07
Troponin I 0.493 H*
Vital Signs and I&O:
Vital Signs
Temp Pulse Resp BP Pulse Ox
98.6 F 73 16 100/45 97
04/30/24 07:05 04/30/24 07:05 04/30/24 07:05 04/30/24 09:39 04/30/24 07:05
Vital Signs
Temp Pulse Resp BP Pulse Ox
98.6 F 73 16 100/45 97
04/30/24 07:05 04/30/24 07:05 04/30/24 07:05 04/30/24 09:39 04/30/24 07:05
Intake & Output
04/28/24 04/29/24 04/30/24 05/01/24
06:59 06:59 06:59 06:59
Intake Total 640 / 640 370 / 370
Balance 640 / 640 370 / 370
Physical Exam
Physical Exam
Physical Exam
General: no apparent distress, not acutely ill
Neck: supple. no meningeal signs. normal psoterior pharynx
Heart: s1/s2 regular rate and rhythm, no murmur. equal radial pulses.
Lungs: no acute respiratory distress. clear bilaterally
Abdomen: normal bowel sounds. not tender. no CVAT
Neuro: alert and oriented. no focal neurological deficits
Skin: no rash
Psychiatric: well kept. interactive and cooperative
Extremities: no edema. no calf tenderness. negative homans. good distal pulses
[2024-04-30 11:55] LABS: Glucose - Point of Care 231 mg/dl (70-99)
[2024-04-30] MEDS: BICITRA 15 ML PO ×3 (12:16→20:58)
[2024-04-30] MEDS: NOVOLOG FLEXPEN-LOW RESISTANCE 2 UNITS SC ×2 (12:18→17:04)
[2024-04-30 15:05] VITALS: BP 118/82
[2024-04-30 15:51] LABS: Hematocrit 24.1 % (37.0-47.0); Hemoglobin 8.2 g/dL (12.0-16.0)
[2024-04-30 17:03] LABS: Glucose - Point of Care 223 mg/dl (70-99)
--- NOTE | 2024-04-30 18:28 | CON.ID ---
Consultation
-
Date/Time Consultation Requested: April 30, 2024
Date/Time Consultation Performed: April 30, 2024 1830
Requesting Provider: Dr. Tenisha Irvin
Performing Provider: Dr. Rossy Jeffery
Reason for Consultation: Cholangitis
Chief Complaint / Past History
Chief Complaint
Abd pain
History of Present Illness
78-year-old female with history of diabetes, hypertension who presented to [facility] on 04/28 with acute onset of epigastric pain, nausea and vomiting. This occurred 2 hours after dinner. Her white count was 12.1 in the ER.
Lactic acid 2.2. LFTs elevated. CT of the abdomen pelvis showed significant choledocholithiasis with biliary dilatation. There is mild gallbladder wall thickening. She was started on Zosyn and then transferred to [facility] on April
. Yesterday she underwent ERCP, sphincterotomy, balloon extraction of the stones, removal of debris, sludge and pus. She is being evaluated for cholecystectomy by surgery. Today patient reports the abdominal pain has resolved. She feels well.
She denied fevers or chills. No diarrhea. No further nausea or vomiting.
Past History
Additional Past Medical History:
Diabetes mellitus
Hypertension
Dyslipidemia
DJD
Left carpal tunnel release
Allergy History:
No Known Allergies Allergy (Verified 04/29/24 11:05)
Medications Reviewed: Yes
Current Antibiotics:
Zosyn d3
Social History
Tobacco: Non-Smoker
Alcohol: None
Drug: None
Personal:
Family History
Family History: Not Pertinent
Review of Systems
Review of Systems
General: Negative Fever or Chills
HEENT: Negative Sinus Problems or Headache
Respiratory: Negative Dyspnea or Cough
Gasteroenterology: Negative Nausea, Vomiting or Diarrhea
Genital / Urological: Negative Dysuria or Flank Pain
Endocrine: Negative Weakness
All systems: All other systems were reviewed and were negative
Vital Signs
Temp Pulse Resp BP Pulse Ox
98.4 F 73 18 118/82 97
04/30/24 15:05 04/30/24 15:05 04/30/24 15:05 04/30/24 15:05 04/30/24 15:05
Physical Exam
Physical Exam
Constitutional: No Acute Distress and Comfortable
Eyes: No Conjunctival Hemorrhage and Sclera Anicteric
Cardiovascular: Regular Rate and S1/S2
Pulmonary: Clear
Gastrointestinal: Soft, Non Tender, Non Distended and Normal Bowel Sounds
Extremities: Negative Edema or Erythema
Neurological: AO x 3
Lab / Diagnostic Study Results
04/30/24 15:40
04/30/24 04:20
Total Counted 100 04/29/24 11:28
Abs Neuts (Manual) 20.5 10^3/uL (1.4-6.5) H 04/29/24 11:28
Segmented Neutrophils 80 % (42-75) H 04/29/24 11:28
Band Neutrophils 12 % (0-3) H 04/29/24 11:28
Lymphocytes (Manual) 3 % (20-51) L 04/29/24 11:28
PT 14.3 Sec (11.4-14.6) 04/29/24 11:39
INR 1.12 04/29/24 11:39
Assessment / Plan
# Cholangitis/Biliary obstruction
- s/p ERCP, balloon extraction 04/29.
-Follow 04/28 blood cx's from [facility].
-Continue Zosyn for now.
-Trend LFT's
- Possible cholecystectomy, per surgery.
# Leukocytosis due to above trending down.
- follow wbc.
[2024-04-30 19:10] VITALS: BP 116/59
[2024-04-30 21:07] LABS: Glucose - Point of Care 161 mg/dl (70-99)
[2024-04-30] MEDS: MYSOLINE 100 MG PO (22:25)
[2024-04-30 23:36] VITALS: BP 120/56
[2024-05-01] MEDS: 0.45%NACL 1000 IV (02:25)
[2024-05-01 03:53] VITALS: BP 143/69
[2024-05-01] MEDS: ZOSYN 50 IV ×2 (04:04→07:49)
[2024-05-01 07:05] VITALS: BP 152/74
[2024-05-01 07:31] LABS: Glucose - Point of Care 162 mg/dl (70-99)
[2024-05-01] MEDS: LOW STRENGTH ASPIRIN 81 MG PO (07:48)
[2024-05-01] MEDS: COREG 3.125 MG PO (07:48)
[2024-05-01] MEDS: BICITRA 15 ML PO ×2 (07:49→12:14)
[2024-05-01] MEDS: NOVOLOG FLEXPEN-LOW RESISTANCE 1 UNITS SC (07:50)
[2024-05-01 08:36] LABS: Mean Corp Hgb Conc. 34.8 g/dL (33.0-37.0); Mean Corpuscular Hgb 31.9 pg (27.0-31.0); Mean Corpuscular Volume 91.6 fL (81.0-99.0); Mean Platelet Volume 11.4 fL (7.4-10.4); Platelet Count 213 10^3/uL (130-400); Red Blood Cell Count 2.51 10^6/uL (4.20-5.40); Red Cell Dist. Width 14.6 % (11.5-14.5); White Blood Cell Count 8.4 10^3/uL (4.8-10.8)
[2024-05-01 09:08] LABS: ALT (SGPT) 139 U/L (0-35); AST (SGOT) 141 U/L (14-36); Alkaline Phosphatase 148 U/L (38-126); Blood Urea Nitrogen 28 mg/dl (7-17); Calcium 7.5 mg/dl (8.4-10.2); Carbon Dioxide 18 mmol/L (22-30); Chloride 110 mmol/L (98-107); Estimated Creatinine Clearance 32 ml/min; Glucose 127 mg/dl (70-99); Potassium 4.1 mmol/L (3.5-5.1); Sodium 141 mmol/L (135-145); Total Bilirubin 4.2 mg/dl (0.2-1.3); Total Protein 5.2 g/dl (6.3-8.2); eGFR 41.57
[2024-05-01 09:18] LABS: Iron 65 ug/dl (37-170)
[2024-05-01 09:27] LABS: Percent Saturation 22 % (20-50); Total Iron Binding Capacity 289 ug/dl (265-497)
--- NOTE | 2024-05-01 10:07 | W.PN.CARDCBS ---
Today's Communication / Plan
-
IV antibiotics
Outpatient cholecystectomy
Will arrange stress testing prior to surgery
Can proceed to cholecystectomy on an urgent emergent basis if necessary for clinical picture changes
Impression / Plan
-
Primary Sectional Belt Mold Assembler: [facility]
Assessment:
-Transfer from [place] for ERCP
-Choledocholithiasis/cholelithiasis, concern for cholangitis
-Transaminitis
-Fever
-Leukocytosis
-Elevated lipase
-Elevated troponin
-HTN
-HLD
-DM2
-spinal stenosis
-essential tremor
-recurrent UTIs
-heart murmur
Plan:
-Patient presents in transfer from [facility] for ERCP due to concern for choledocholithiasis/cholangitis.
-reviewed records from [place] 04/29/24 including ER notes, EKG. attempting to obtain records from OP clinical provider trainer for review
-Troponins are now trending down
-EKG SR with RBBB, stable compared to that from [place] earlier today
-Discussions with patient and with Dr. Muro regarding timing of cholecystectomy. If she were to have an emergent or urgent need for cholecystectomy she could proceed without further cardiovascular testing. Given her anemia and improvement after
ERCP with sphincterotomy Dr. Muro plans to perform the cholecystectomy on a semi-elective basis as an outpatient to allow her hemoglobin to recover and mitigate risk. Would not be unreasonable to perform outpatient stress testing in the next 1
to 2 weeks for restratification although unless we saw multivessel territory ischemia in large territories would still aim to proceed to cholecystectomy on the timing of patient and Dr. Muro's choosing. She also wants to follow with his
long-term and we will arrange for outpatient stressing prior to her surgery.
-Appreciate ID input-recommending continuation of IV antibiotics
-The patient did not have precedent angina or chest pain prior to admission and is not having any active chest pain currently or with activity while in hospital. We will follow with you while hospitalized
Progress Note - Sectional Belt Mold Assembler
Subjective
Date of Service: May 01, 2024
Total Time Spent with Patient (in minutes): Abdominal pain improving
Objective
Labs:
05/01/24 12:00
05/01/24 06:01
Labs
Hgb Cancelled 05/01/24 12:00
Hct Cancelled 05/01/24 12:00
Plt Count 213 10^3/uL (130-400) 05/01/24 06:01
PT 14.3 Sec (11.4-14.6) 04/29/24 11:39
INR 1.12 04/29/24 11:39
APTT 25.7 Sec (23.4-35.0) 04/29/24 11:39
Sodium 141 mmol/L (135-145) 05/01/24 06:01
Potassium 4.1 mmol/L (3.5-5.1) 05/01/24 06:01
BUN 28 mg/dl (7-17) H 05/01/24 06:01
Creatinine 1.3 mg/dL (0.6-1.0) H 05/01/24 06:01
Glucose 127 mg/dl (70-99) H 05/01/24 06:01
Troponins
04/29/24 04/29/24 04/29/24
11:39 15:24 16:18
Troponin I 0.354 H* Cancelled 0.508 H* D
04/29/24
21:07
Troponin I 0.493 H*
Vital Signs and I&O:
Vital Signs
Temp Pulse Resp BP Pulse Ox
98.6 F 79 18 152/74 92
05/01/24 07:05 05/01/24 07:05 05/01/24 07:05 05/01/24 07:05 05/01/24 07:05
Vital Signs
Temp Pulse Resp BP Pulse Ox
98.6 F 79 18 152/74 92
05/01/24 07:05 05/01/24 07:05 05/01/24 07:05 05/01/24 07:05 05/01/24 07:05
Intake & Output
04/29/24 04/30/24 05/01/24 05/02/24
06:59 06:59 06:59 06:59
Intake Total 640 / 640 2690 / 2690
Balance 640 / 640 2690 / 2690
Physical Exam
Physical Exam
�
����Physical Exam
�
���������������������General:��no apparent distress, not acutely ill
�
���������������������������Neck:��supple. no meningeal signs. normal psoterior pharynx
������������������������
���������������������������Heart:��s1/s2 regular rate and rhythm, no murmur. equal radial pulses.
�
��������������������������Lungs: ��no acute respiratory distress. clear bilaterally
�
����������������������Abdomen:�normal bowel sounds. not tender. no CVAT
�
��������������������������Neuro:��alert and oriented. no focal neurological deficits
�
������������������������������Skin: ��no rash
�
�����������������������Psychiatric:�well kept. interactive and cooperative
�
�����������������������Extremities:��no edema. no calf tenderness. negative homans. good distal pulses
�
�
�
��
�
--- NOTE | 2024-05-01 10:15 | W.PN.GS2 ---
Today's Communication / Plan
-
`
Assessment / Plan
-
Assessment: 78-year-old female initially admitted with ascending cholangitis and choledocholithiasis in transfer from [facility]
PPD #2 status post ERCP stent durotomy and extraction of multiple stones in common bile duct
No clinical or radiographic signs of acute calculus cholecystitis -gallbladder visualized on ERCP confirming that there is no cystic duct obstruction
Insetting of patient's troponin leak, baseline sedentary lifestyle, acute on chronic anemia we discussed that cholecystectomy is semielective procedure and would be beneficial to complete cardiac risk evaluation with stress test rather than assume
unknown potential for cardiac risk with pursuing cholecystectomy without indications/clinical need for urgent procedure.
Patient voiced understanding of surgical treatment plan. Updated medical teams.
Plan: Continue low-fat diet as tolerated
Outpatient surgical follow-up for cholecystectomy will be arranged by my office
Timing of cholecystectomy pending completion of outpatient stress testing and cardiac evaluations.
ID following for antibiotic recommendations
Subjective Data
-
Date of Service: May 01, 2024
Patient seen and examined.
Has tolerated dietary advancement without any abdominal pain or discomfort.
Denies any recurrent GI symptoms
Passing flatus and had formed bowel movement. No melena or hematochezia.
Objective Data
-
Intake and Output
04/30/24 05/01/24 05/02/24
06:59 06:59 06:59
Intake Total 640 / 640 2690 / 2690
Balance 640 / 640 2690 / 2690
Intake:
Oral fluids 480 / 480 1500 / 1500
IV fluids (Total) 160 / 160 1040 / 1040
IV piggybacks 150 / 150
Other:
Number of approximated MODERATE 4
amounts of urine
Number of approximated LARGE 2
amounts of urine
How many times incontinent 1
MODERATE amount urine
Vital Signs
Temp Pulse Resp BP Pulse Ox
98.6 F 79 18 152/74 92
05/01/24 07:05 05/01/24 07:05 05/01/24 07:05 05/01/24 07:05 05/01/24 07:05
Lab Results
05/01/24 12:00
05/01/24 06:01
Calcium 7.5 mg/dl (8.4-10.2) L 05/01/24 06:01
Total Bilirubin 4.2 mg/dl (0.2-1.3) H 05/01/24 06:01
Direct Bilirubin 4.0 mg/dl (0.0-0.4) H 04/30/24 04:20
AST 141 U/L (14-36) H 05/01/24 06:01
ALT 139 U/L (0-35) H 05/01/24 06:01
Alkaline Phosphatase 148 U/L (38-126) H 05/01/24 06:01
Total Protein 5.2 g/dl (6.3-8.2) L 05/01/24 06:01
Albumin 3.0 g/dl (3.5-5.0) L 05/01/24 06:01
Physical Exam
-
NAD AAOx3
Remains jaundiced
ABD: Soft, nondistended, nontender on palpation
[2024-05-01 11:00] VITALS: BP 152/70
[2024-05-01] MEDS: NORVASC 5 MG PO (11:02)
[2024-05-01] MEDS: DIOVAN 80 MG PO (11:02)
--- NOTE | 2024-05-01 11:22 | W.PN.ID1 ---
Date of Service
Date of Service: May 01, 2024
Today's Communication
Can transition Zosyn to Augmentin 875mg po bid through 05/05/24.
Assessment / Plan
# Cholangitis/Biliary obstruction
- s/p ERCP, balloon extraction 04/29.
-I called [facility] and spoke to micro-lab. 04/29 bcx's x 2 sets neg to date.
-LFT's trending down
-Can transition Zosyn to Augmentin 875mg po bid through 05/05/24.
-For eventual cholecystectomy, per surgery.
# Leukocytosis due to above resolved.
- follow wbc.
Chief Complaint
-: Other (cholangitis)
Subjective / Review of Systems
Feels good. No abd pain.
Vital Signs / Physical Exam
Vital Signs
Vital Signs
Temp Pulse Resp BP Pulse Ox
98.3 F 73 16 152/70 96
05/01/24 11:00 05/01/24 11:00 05/01/24 11:00 05/01/24 11:00 05/01/24 11:00
Physical Exam
Constitutional: No Acute Distress and Comfortable
Cardiovascular: Regular Rate and S1/S2
Pulmonary: Clear
Gastrointestinal: Soft, Non Tender, Non Distended and Normal Bowel Sounds
Neurological: AO x 3
Objective Data
Lab Data
Lab Results
05/01/24 12:00
05/01/24 06:01
PT 14.3 Sec (11.4-14.6) 04/29/24 11:39
INR 1.12 04/29/24 11:39
APTT 25.7 Sec (23.4-35.0) 04/29/24 11:39
Estimated Creat Clear 32 ml/min 05/01/24 06:01
Total Bilirubin 4.2 mg/dl (0.2-1.3) H 05/01/24 06:01
AST 141 U/L (14-36) H 05/01/24 06:01
ALT 139 U/L (0-35) H 05/01/24 06:01
Alkaline Phosphatase 148 U/L (38-126) H 05/01/24 06:01
Most recent labs reviewed.
[2024-05-01 11:38] LABS: Glucose - Point of Care 304 mg/dl (70-99)
[2024-05-01] MEDS: NOVOLOG FLEXPEN-LOW RESISTANCE 4 UNITS SC (12:16)
[2024-05-01 12:24] LABS: Ferritin 70.9 ng/ml (11.1-264.0)
[2024-05-01 12:56] LABS: Folate 12.7 ng/ml (2.76-20); Vitamin B12 928 pg/ml (239-931)
--- NOTE | 2024-05-01 15:08 | W.PN.HOSP.TC ---
Today's Communication/Plan
-
Tolerating regular diet. DC planning
Continue PO Augmentin to 05/05
Follow up with cardiology and Gen surgery outpt
Assessment / Plan
Assessment / Plan
IMPRESSION: 78 year old female who presents with RUQ and epigastric abdominal pain. S/P ERCP. Concern for cholangitis with choledocholithiasis
PLAN:
Cholangitis with choledocholithiasis
Severe sudden onset RUQ and epigastric pain. Known remote history of cholelithiasis. S/P urgent ERCP with evacuation of choledocholithiases and purulent material
Leukocytosis, transaminitis, hyperbilirubinemia, elevated lipase. Feb[place] at [facility] [place] [facility] [place]
- Transaminases improving. Tolerating regular diet
- Pain control, IVF, Continue Zosyn
- Appreciate GI recs
- For non-urgent cholecystectomy with Dr. Muro given absence of acute cholecystitis. To be arranged outpatient
- Appreciate infectious disease recs to convert Zosyn to PO Augmentin until 05/05
- Okay to discharge today, to follow low fat diet
Non-ischemic myocardial injury:
Likely reactive
- Elevated troponin on arrival. Peak 0.508 with downward trend
- EKG with no acute ischemia, normal sinus rhythm and RBBB. No change following ERCP
- Appreciate cardiology recs. Currently on Asp 80mg
- Will need outpatient stress test prior to non-urgent cholecystectomy
Normocytic anemia:
Unclear source. Hgb stable
Iron studies non indicative of iron deficiency. No B12/folate deficiency
- PCP outpatient workup
Non insulin dependent diabetes mellitus:
- SSI, accuchecks,
- Metformin help. Can continue at home dose on discharge
Hyperlipidemia:
- Hold fenofibrate and Rosuvastatin given transaminitis
Hyperchloremic metabolic acidosis:
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
Patient follows with a chief quality officer.
- Cr 1.2 on arrival, unknown baseline. Cr 1.3 today
- avoid nephrotoxic agents. Hold metformin
- Bicitra
Hypertension:
- Continue home hypertensives
- Continue Carvedilol
DDD/lumbar stenosis:
DVT ppx: SCDs
Code status: Full code
Anticipated Discharge: Today
Subjective/Interval History
-
Date of Service: May 01, 2024
Tolerating regular diet. No abdominal symptoms. No acute events overnight, remains afebrile
Objective Data
-
Labs:
Laboratory Results
05/01/24 05/01/24
06:01 12:00
WBC 8.4
Hgb 8.0 L Cancelled
Hct 23.0 L Cancelled
Plt Count 213
Sodium 141
Potassium 4.1
Chloride 110 H
Carbon Dioxide 18 L
BUN 28 H
Creatinine 1.3 H
Glucose 127 H
Calcium 7.5 L
Total Bilirubin 4.2 H
AST 141 H
ALT 139 H
Alkaline Phosphatase 148 H
Vital Signs:
Vital Signs
Temp Pulse Resp BP Pulse Ox
98.3 F 73 16 152/70 96
05/01/24 11:00 05/01/24 11:00 05/01/24 11:00 05/01/24 11:00 05/01/24 11:00
I&O
04/30/24 05/01/24 05/02/24
06:59 06:59 06:59
Intake Total 640 / 640 2690 / 2690 480 / 480
Balance 640 / 640 2690 / 2690 480 / 480
Review of Systems
-
History Source: Patient
Constitutional: Denies Fever
Cardiac: Denies Chest Pain or Palpitations
Abdomen/GI: Denies Abdominal Pain, Nausea, Vomiting, Diarrhea, Constipated, Bloody Stools or Black Stools
Genitourinary: Denies Dysuria or Difficulty Voiding
Physical Exam
-
General: Well Developed, Well Nourished, No Apparent Distress and Comfortable
HEENT: Moist Mucous Membranes
Respiratory: Clear to Auscultation and Non Labored Respirations; Negative Wheezes, Rales, Rhonchi or Crackles
Cardiac: Regular Rhythm, S1/S2 and Murmur (mild systolic); Negative Calf Tenderness
GI: Soft, Nontender, Nondistended and Normal Bowel Sounds
Genito-urinary: No Costovertebral Tender
Musculoskeletal: No Clubbing, No Cyanosis and No Edema
Skin: Warm and Dry
Neuro: Awake and Alert
Psych: Calm
--- NOTE | 2024-05-01 16:25 | W.DCSUMMARY ---
Discharge Summary
Discharge Data
Date of Admission: 04/29/24
Date of Discharge: 05/01/24
-
Pending Results: No
Hospital Course
Discharging Physician : Omar Razo MD; Tenisha Irvin MD.
Disposition : Home
Primary care physician : Ashleigh Otoole MD.
Principal Discharge diagnosis : Cholangitis, choledocholithiasis, normocytic anemia, non-ischemic myocardial injury,
Chronic Discharge diagnosis : Non-insulin dependent diabetes mellitus, hyperlipidemia, Chronic kidney disease, hypertension, degenerative disc disease, lumbar stenosis, cholelithiasis
Hospital Course :
78 yr old female with above medical history presented to on 04/29 from [facility] for urgent ERCP. She complained of sudden onset of severe epigastric abdominal pain starting the night before with nausea and vomiting. CT imaging at
[facility] demonstrating stone in the common bile duct along with transaminitis elevated lipase. On arrival, she was afebrile (although febrile at [facility]), mildly tachycardic, tachypneic, leukocytosis + left shift, transaminitis, elevated alk phos,
hyperbilirubinemia, elevated lipase, and elevated troponin.
Gastroenterology was consulted to arrange for urgent ERCP. She was started on Zosyn. Procedure was successful with marked improvement in symptoms immediately after procedure. She remained afebrile during stay, abdominal pain resolved, and she
tolerated diet advancement to regular solids. WBC resolved by discharge, with significant downtrend of liver transaminases.
EKG showed normal sinus rhythm with RBBB. Echo with normal systolic function, LVEF 60-65%, with Grade 1 diastolic dysfunction. Troponin level peaked at 0.508 with subsequent downtrend indicating non-ischemic myocardial injury secondary to
cholangitis.
She had a metabolic acidosis that persisted with significant clinical improvement, likely secondary to known kidney disease. Normocytic anemia was noted with normal iron panel, B12 and folate levels.
HbA1c 6.8. Chronic medical issues were stable during this hospitalization and home medications were continued as able.
She steadily improved throughout stay and was stable for discharge with instructions for
- low fat diet
- Continued antibiotic course with Augmentin to 05/05 for a 7 day abx course. Asp 81 mg daily
- Outpatient follow up with cardiology for cardiac stress test
- Outpatient follow up with general surgery for cholecystectomy
- Follow up with pt's known success coach for kidney function
- PCP follow up for normocytic anemia
Procedure findings :
ERCP 04/29
- Multiple filling defects consistent with stones were seen on the cholangiogram.
- The entire main bile duct was mildly dilated.
- Choledocholithiases were found. Complete removal was accomplished by biliary sphincterotomy and balloon extraction.
- A biliary sphincterotomy was performed.
- Major papilla was successfully dilated.
- The biliary tree was swept and pus and sludge were found.
Discharge Plan
-
Patient Disposition: Home (Routine Discharge)
Discharge Diagnosis/Procedures: Cholangitis, choledocholithiasis, normocytic anemia
Condition: Fair
Diet: Low Fat and Diabetic, Carb Controlled
Activity: As tolerated
Bathing Restrictions: None
Instructions: Low-fat diet
Referrals:
Marcin Solano MD [Active] - in one to two weeks
Ashleigh Otoole MD [Family Provider] -
Sarwat Muro MD [Active] - (Dr. Muro's office will follow up to assist with determining timing and scheduling of future laparoscopic gallbladder surgery)
Additional Discharge Medication Instructions: Please follow up with soil science teacher Dr. Solano in one to two weeks for cardiac testing, and to help you prepare for surgery
Please follow up with general surgeon Dr. Muro shortly
You will need to follow a low fat diet
Follow up with your success coach shortly for kidney function
Prescriptions:
New
aspirin 81 mg Tablet,Chewable
81 mg PO DAILY Qty: 30 0RF
amoxicillin-pot clavulanate 875-125 mg tablet
1 tab PO BID Qty: 9 0RF
Continued
cyanocobalamin (vitamin B-12) 1,000 mcg Tablet
1,000 mcg PO DAILY
carvedilol [Coreg] 3.125 mg Tablet
3.125 mg PO BID
gabapentin 100 mg Capsule
100 mg PO TIDPRN PRN (Reason: nerve pains)
rosuvastatin [Crestor] 10 mg Tablet
10 mg PO HS
metformin 500 mg Tablet Extended Release 24hr
1,000 mg PO BID
fenofibrate nanocrystallized [Tricor] 48 mg Tablet
48 mg PO DAILY
cholecalciferol (vitamin D3) [Vitamin D3] 25 mcg (1,000 unit) Tablet
25 mcg PO DAILY
Prolia 60 mg/mL Syringe
60 mg SC [id number]
primidone 50 mg Tablet
100 mg PO HS
acetaminophen 650 mg Tablet Extended Release
1,300 mg PO [id number] PRN (Reason: mild pain)
estradiol [Estrace] 0.01 % (0.1 mg/gram) Cream
1 g VAGINAL HS
amlodipine-valsartan 10-160 mg Tablet
0.5 tab PO DAILY
Discharge Orders:
Discharge Patient (As Directed); Ordered 05/01/24
Ordered By: Tenisha Irvin
Discharge Date and Time
Discharge Date/Time: 05/01/24 15:00
Print Language: TAMAZIGHT
== END 2024-05-01 15:00 | disposition home or self-care (01) | DRG 445 ==
LOC: 2 SOUTH 10:08
PROVIDERS: Nurse Practitioner; Physician Assistant; Student in an Organized Health Care Education/Training Program; ADMITTING PHYSICIAN Internal Medicine; ATTENDING PHYSICIAN Hospitalist; CONSULT PHYSICIAN Internal Medicine Cardiovascular Disease; CONSULT PHYSICIAN Internal Medicine Gastroenterology; CONSULT PHYSICIAN Internal Medicine Infectious Disease; CONSULT PHYSICIAN Surgery; FAMILY PHYSICIAN Student in an Organized Health Care Education/Training Program
PROC: 0FC98ZZ Extirpation of Matter from Common Bile Duct, Via Natural or Artificial Opening Endoscopic (ICD-10-PCS; 2024-04-29)
PROC: 0F7D8ZZ Dilation of Pancreatic Duct, Via Natural or Artificial Opening Endoscopic (ICD-10-PCS; 2024-04-29)
DX: K80.30 Calculus of bile duct with cholangitis, unspecified, without obstruction (principal); E87.20 Acidosis, unspecified; I5A Non-ischemic myocardial injury (non-traumatic); K80.20 Calculus of gallbladder without cholecystitis without obstruction; N18.9 Chronic kidney disease, unspecified; I12.9 Hypertensive chronic kidney disease with stage 1 through stage 4 chronic kidney disease, or unspecified chronic kidney disease; E11.22 Type 2 diabetes mellitus with diabetic chronic kidney disease; E11.36 Type 2 diabetes mellitus with diabetic cataract; D64.9 Anemia, unspecified
CPT/HCPCS: 74330; 76000; 80053; 82248; 82607; 82728; 82746; 82962; 83036; 83540; 83550; 83690; 84484; 85014; 85018; 85025; 85027; 85610; 85730; 93005; 93306; C1726; C1769

== ENCOUNTER → 2024-05-09 08:17 | Outpatient (REF) | payer MEDICARE, BC, SELFPAY | LOC: DHCBC/DCA 08:17 | PROVIDERS: ATTENDING PHYSICIAN Internal Medicine Cardiovascular Disease; FAMILY PHYSICIAN Internal Medicine | DX: R07.2 Precordial pain (principal); R79.89 Other specified abnormal findings of blood chemistry; E11.9 Type 2 diabetes mellitus without complications; N18.32 Chronic kidney disease, stage 3b | CPT/HCPCS: 78452; 93017; A9500; J2785 ==

== ENCOUNTER 2024-05-23 06:50 | Day surgery (SDC) | payer BC, SELFPAY ==
--- NOTE | 2024-05-19 10:26 | PTCARENOTE ---
Stacia in Dr. Muro's office made aware of Hgb 8.0.
--- NOTE | 2024-05-19 13:37 | PTCARENOTE ---
Dr. Lackey made aware of Hgb 8.0, no further action requested.
[2024-05-23] VITALS (12 sets, daily range): BP systolic 119–187; BP diastolic 53–88; BMI 23.5
[2024-05-23 11:15] LABS: Glucose - Point of Care 131 mg/dl (70-99)
[2024-05-23] MEDS: TYLENOL 1000 MG PO (11:29)
--- NOTE | 2024-05-23 12:08 | W.SUR.PREOP ---
Pre-Operative Surgical Note
-
I have examined this patient prior to the performance of the scheduled procedure.
The patient's condition is unchanged from the time of the current History and
Physical and the patient is able to undergo the scheduled procedure.
--- NOTE | 2024-05-23 14:34 | W.IMMPOSTOP ---
Addendum entered and electronically signed by Sarwat Muro MD 05/23/24 15:21:
#[id number]
Original Note:
Surgical Immed Post Op Note
-
Primary Surgeon: Bhaskar
Assisting Surgeon: Lee PAGE
Pre-op Diagnosis: History choledocholithiasis, chronic cholecystitis
Post-op Diagnosis: history of choledocholithiasis, chronic cholecystitis
Procedure Performed: Laparoscopic cholecystectomy with cholangiogram
Anesthesia Type: GETA +0.25% Marcaine
Specimen / Cultures: Gallbladder
Estimated Blood Loss: 8 mL
Complications: None immediate
Operative Findings: Gallbladder with stones, moderately enlarged. Intraoperative cholangiogram normal. Cystic duct controlled with clips and 0 PDS Endoloop. Cystic artery controlled with clips. Gallbladder removed intact and extracted at
epigastric port site
[2024-05-23 14:49] LABS: Glucose - Point of Care 189 mg/dl (70-99)
[2024-05-23] MEDS: SUBLIMAZE 25 MCG IV ×2 (15:22→15:33)
[2024-05-23] MEDS: NOVOLOG vial 2 UNITS SC (15:23)
--- NOTE | 2024-05-23 16:20 | PTCARENOTE ---
Patient admitted from [facility] post laparoscopic cholecystectomy.The patient reports her pain at a 5 out of 10 when asked.All 5 lap sites are open to air without drainage.The patient is awake but still a little drowsy.The patient is in her bed with the
call kellogg in reach.Her is at the bedside.
[2024-05-23] MEDS: NOVOLOG FLEXPEN-LOW RESISTANCE SC (17:18)
[2024-05-23] MEDS: LOVENOX 40 MG SC (17:18)
[2024-05-23] MEDS: ULTRAM 50 MG PO (17:42)
[2024-05-23] MEDS: COREG 3.125 MG PO (20:05)
[2024-05-23] MEDS: COLACE 100 MG PO (20:05)
[2024-05-23] MEDS: MYLICON 80 MG PO (21:13)
[2024-05-23] MEDS: TYLENOL 650 MG PO (21:15)
[2024-05-23] MEDS: MYSOLINE 100 MG PO (21:15)
[2024-05-23] MEDS: NSS 1000 IV (21:20)
[2024-05-23 21:33] LABS: Glucose - Point of Care 276 mg/dl (70-99)
[2024-05-23] MEDS: DILAUDID 0.25 MG IV (22:46)
[2024-05-24 03:22] VITALS: BP 138/65
[2024-05-24 04:27] VITALS: BMI 23.6
[2024-05-24] MEDS: TYLENOL 650 MG PO (04:35)
[2024-05-24 07:00] VITALS: BP 149/61
--- NOTE | 2024-05-24 07:13 | W.PN.GS2 ---
Today's Communication / Plan
-
d/c
Assessment / Plan
-
Assessment: POD#1 s/p lap jerome with IOC for CCC and recent h/o CBD stone
AFVSS
doing well post op
Plan: low fat/ADA diet as tolerated
d/c home today
Subjective Data
-
Date of Service: May 24, 2024
pt seen and examined
offers no complaints other than some discomfort/pain at incision sites
no nausea
feels ready to go home today
Objective Data
-
Intake and Output
05/23/24 05/24/24 05/25/24
06:59 06:59 06:59
Intake Total 510 / 510
Balance 510 / 510
Intake:
Oral fluids 120 / 120
IV fluids (Total) 390 / 390
Normosol 150 / 150
Other:
Number of approximated LARGE 4
amounts of urine
Vital Signs
Temp Pulse Resp BP Pulse Ox
97.6 F 59 20 138/65 95
05/24/24 03:22 05/24/24 03:22 05/24/24 03:22 05/24/24 03:22 05/24/24 03:22
Physical Exam
-
NAD AAOx3
ABD: soft, ND, mild TTP at incisions/right abd
incisions with glue dressings and some localized ecchymosis at 5mm sites - no hematomas
--- NOTE | 2024-05-24 07:18 | W.DS.TRANS ---
DC Summary - Rent And Housing Investigator
-
Discharge Instructions:
Sleep Apnea Risk Low
Discharge Diagnosis/Procedures Laparoscopic cholecystectomy with cholangiogram
Diet As tolerated,Low Fat,Diabetic, Carb Controlled
Additional Diets Smaller meals of abdominal bloating/distention
Activity No strenuous activity
Additional Activity Routine daily activities, walking, standing,
stairs are all okay as tolerated. Avoid lifting
over 15 pounds for 3 weeks postoperatively
Driving Restrictions No driving 3 to 4 days or if using narcotics
Bathing Restrictions OK to Shower
Wound Care Glue at surgical sites typically peels off in 2
to 3 weeks
Instructions:
Stand-Alone Forms:
Changes to Home Medications: No
Discharge Medications:
DC Medications w/original date entered in [employer]
carvedilol 3.125 mg tablet (Coreg) 3.125 mg PO BID 04/29/24
cholecalciferol (vitamin D3) 25 mcg (1,000 unit) tablet (Vitamin D3) 25 mcg PO MOWEFR 04/29/24
cyanocobalamin (vitamin B-12) 1,000 mcg tablet 1,000 mcg PO MOWEFR 04/29/24
denosumab 60 mg/mL subcutaneous syringe (Prolia) 60 mg SC [id number] 04/29/24
fenofibrate nanocrystallized 48 mg tablet (Tricor) 48 mg PO DAILY 04/29/24
metformin 500 mg tablet,extended release 24hr (osmotic) 1,000 mg PO BID 04/29/24
rosuvastatin 10 mg tablet (Crestor) 10 mg PO DAILY 04/29/24
acetaminophen 650 mg tablet,extended release 1,300 mg PO [id number] PRN mild pain 04/30/24
amlodipine 10 mg-valsartan 160 mg tablet 0.5 tab PO DAILY 04/30/24
estradiol 0.01% (0.1 mg/gram) vaginal cream (Estrace) 1 g vaginal HS 04/30/24
primidone 50 mg tablet 100 mg PO HS 04/30/24
aspirin 81 mg chewable tablet 81 mg PO DAILY #30 tabs 05/01/24
polyethylene glycol 3350 17 gram/dose oral powder (Miralax) 4 g PO DAILY PRN Constipation #119 grams 05/24/24
tramadol 50 mg tablet 25 - 50 mg (0.5 - 1 x 50 mg) PO Q6HPRN PRN severe pain/breakthrough pain #7 tabs 05/24/24
Home Medication Changes
Pending Results: No
[2024-05-24 08:18] LABS: Glucose - Point of Care 170 mg/dl (70-99)
[2024-05-24 08:20] LABS: Hematocrit 26.9 % (37.0-47.0); Hemoglobin 9.2 g/dL (12.0-16.0); Mean Corp Hgb Conc. 34.2 g/dL (33.0-37.0); Mean Corpuscular Hgb 33.6 pg (27.0-31.0); Mean Corpuscular Volume 98.2 fL (81.0-99.0); Mean Platelet Volume 11.6 fL (7.4-10.4); Platelet Count 231 10^3/uL (130-400); Red Blood Cell Count 2.74 10^6/uL (4.20-5.40); Red Cell Dist. Width 15.1 % (11.5-14.5); White Blood Cell Count 8.6 10^3/uL (4.8-10.8)
[2024-05-24 08:33] LABS: Blood Urea Nitrogen 39 mg/dl (7-17); Calcium 8.5 mg/dl (8.4-10.2); Carbon Dioxide 22 mmol/L (22-30); Chloride 102 mmol/L (98-107); Estimated Creatinine Clearance 34 ml/min; Glucose 122 mg/dl (70-99); Potassium 4.9 mmol/L (3.5-5.1); Sodium 138 mmol/L (135-145); eGFR 45.76
[2024-05-24] MEDS: GLUCOPHAGE XR EXTENDED RELEASE 500 MG PO (08:51)
[2024-05-24] MEDS: DIOVAN 80 MG PO (08:51)
[2024-05-24] MEDS: LOW STRENGTH ASPIRIN 81 MG PO (08:51)
[2024-05-24] MEDS: CRESTOR 10 MG PO (08:51)
[2024-05-24] MEDS: COLACE 100 MG PO (08:51)
[2024-05-24] MEDS: NORVASC 5 MG PO (08:51)
[2024-05-24] MEDS: TRICOR 48 MG PO (08:51)
[2024-05-24] MEDS: NOVOLOG FLEXPEN-LOW RESISTANCE 1 UNITS SC (08:52)
[2024-05-24] MEDS: COREG 3.125 MG PO (08:52)
[2024-05-24] MEDS: NSS IV (08:53)
[2024-05-24] MEDS: ULTRAM 50 MG PO (09:07)
--- NOTE | 2024-05-24 10:13 | CM ---
Met with pt at bedside
Pt reports she lives in a 2 story home with her ; 1 step to enter, 13 steps to 2nd fl - has chair lift
Independent with ADL's, ambulates with single point cane, shares graphics specialist with
DME - single point cane, rolling walker, shower rails, chair lift
SNF/HH - no past hx
Has ride at discharge -
PCP - Dr Otoole
Pharm - [facility]
Plan - anticipate home no needs
[2024-05-24 11:00] VITALS: BP 167/69
[2024-05-24 12:17] VITALS: BMI 24.0
[2024-05-24] MEDS: NOVOLOG FLEXPEN-LOW RESISTANCE SC (12:19)
== END 2024-05-24 12:36 | disposition home or self-care (01) ==
LOC: SDS 06:50
PROVIDERS: ATTENDING PHYSICIAN Surgery
DX: K80.10 Calculus of gallbladder with chronic cholecystitis without obstruction (principal); D64.9 Anemia, unspecified
CPT/HCPCS: 47563; 88304; 74330; 76000; 80048; 82962; 85027

== ENCOUNTER 2024-06-01 22:19 | Inpatient (IN) | payer MEDICARE, BC, SELFPAY ==
[2024-06-01 16:23] VITALS: BP 149/64
--- NOTE | 2024-06-01 17:14 | ED.GENMED ---
History of Present Illness
General
Chief Complaint: Post Operative Problem(s)
Source: patient
Exam Limitations: none
Time Seen by Provider: 06/01/24 17:13
Nursing documentation reviewed up to this point in time: agreed with
History of Present Illness
History of Present Illness:
This is a 78-year-old female with a past medical history of hypertension, hyperlipidemia, chronic UTIs, chronic kidney disease, cdc-hdzqkkg-wrimnubvw diabetes who presents emergency department today with generalized weakness and jaundice for past 4
days. Patient reports that she also has vague abdominal pain. Of note, patient had a cholecystectomy on May 23, 2024. Patient reports that she did not stay in the hospital for a long and postsurgery did not have any complications. Patient
states that she does have mild tenderness around her incision sites but denies any purulent drainage. Patient denies chest pain, shortness of breath, palpitations. Patient denies a history of COPD or asthma. Patient denies any nausea or vomiting,
any fevers or chills.
Review of Systems
Review of Systems
All Other Systems: ROS reviewed and negative except as documented in HPI and ROS
Phy Exam
Physical Exam
Physical Exam:
General: Patient is chronically ill appearing otherwise in no acute distress
Skin: Pallor, mild jaundice noted
Head: Normocephalic, atraumatic
Eyes: Sclera non-icteric. EOMs intact. PERRLA.
Cardiac: Regular rate and rhythm, no murmurs
Peripheral Vascular: No lower extremity swelling or edema
Pulm: Normal respiratory effort, pulse ox 88% on room air, decreased breath sounds heard on the right
Abdomen: No abdominal tenderness to palpation, lap jerome incisions intact with no active drainage
Neuro: CN II-XII intact, no focal neurologic deficits.
Psychiatric: Appropriate mood and affect.
Course
Orders/Labs/Results
Orders:
Orders
06/01/24 17:14
IV Insert/Care/Rem.- Treatment PRN
06/01/24 17:35
CR Chest - 2 Views Urgent
Comment:
Reason For Exam: hypoxia, decreased breath sounds right
06/01/24 17:36
Complete Blood Count/With Diff Urgent
Comprehensive Metabolic Panel Urgent
Lipase Urgent
Urinalysis Reflex To Culture Urgent
Date Specimen was Collected: 06/01/24
Time Specimen was Collected: 17:50
06/01/24 17:44
Electrocardiogram (*1) Urgent
Reason for Study: Other
Other Reason for Exam: weakness
EKG- Treatment ONCE
06/01/24 18:30
CT Pe/abd/pel W Urgent
Reason For Exam: hypoxia
06/01/24 18:35
Vancomycin [Vancocin] 1,500 mg 0.9% Sodium Chloride 500 ml [Nss] 500 ml IV NOW
Abnormal Lab Results
06/01/24
17:36
WBC 11.2 H 10^3/uL
(4.8-10.8)
RBC 2.28 L 10^6/uL
(4.20-5.40)
Hgb 7.8 L g/dL
(12.0-16.0)
Hct 23.0 L %
(37.0-47.0)
MCV 100.9 H fL
(81.0-99.0)
MCH 34.2 H pg
(27.0-31.0)
RDW 19.8 H %
(11.5-14.5)
MPV 10.7 H fL
(7.4-10.4)
Abs Immat Gran (auto) 0.1 H 10^3/uL
(0-0.05)
Absolute Neuts (auto) 9.0 H 10^3/uL
(1.4-6.5)
Absolute Lymphs (auto) 1.0 L 10^3/uL
(1.2-3.4)
Immature Gran % 1.3 H %
(0-0.5)
Neutrophils % 80.7 H %
(42.2-75.2)
Lymphocytes % 8.6 L %
(20.5-51.1)
Carbon Dioxide 21 L mmol/L
(22-30)
BUN 51 H mg/dl
(7-17)
Creatinine 1.2 H mg/dL
(0.6-1.0)
Glucose 247 H mg/dl
(70-99)
Total Bilirubin 2.7 H mg/dl
(0.2-1.3)
AST 57 H U/L
(14-36)
06/01/24 17:36
06/01/24 17:36
Vital Signs
Initial and Last Documented VS:
Initial Vital Signs
Temp Pulse Resp BP Pulse Ox
98.2 F 89 20 149/64 92
06/01/24 16:23 06/01/24 16:23 06/01/24 16:23 06/01/24 16:23 06/01/24 16:23
Last Documented Vital Signs
Temp Pulse Resp BP Pulse Ox
98.2 F 87 19 149/64 91
06/01/24 16:23 06/01/24 17:30 06/01/24 17:30 06/01/24 16:23 06/01/24 17:30
MDM/Problems Addressed
Differential Diagnosis Includes:
Differentials include retained stone, bile duct leak, intraabdominal abscess, biloma
MDM/Problems Addressed:
This is a 78-year-old female with a past medical history of hypertension, hyperlipidemia, chronic UTIs, chronic kidney disease, bdj-euuqrmd-tnhzdlhfw diabetes who presents emergency department today with generalized weakness and jaundice for past 4
days. She had a lap jerome may 23. Today, her total bili is elevated but is decreased from prior. CT of ab reveals 5.8 cm tubular-shaped fluid collection in the gallbladder fossa adjacent to cholecystectomy surgical clips without surrounding
inflammation. Reviewed case with Dr. Muro command and control systems integrator who recommends admission, he will see patient tmr for potential IR drain patient.
While here in the ER, patient was also hypoxic to 88% on RA, denies SOB, chest pain, back pain, patient put on 2L, PE study negative. CT suggestions mild pneumonitis. Patient referred for admission.
Chronic conditions affecting care:
hypertension, hyperlipidemia, chronic UTIs, chronic kidney disease, nzj-exswvlt-ppqcqkfzw diabetes
*Pulse Oximetry
Patient hypoxic: no
*Critical Care Note
Total Time (30-74mins, 75-104mins- exclusive of procedures): Not Applicable
Data Reviewed
Review of Other/Old Records Reveals: Records (reviewed discharge summary from 05/24/24) and Operative Reports (reviewed operative report from 05/23/24)
Source: patient and records
Patient Management
Escalation/DeEscalation of care consider admission/obs:
patient referred for admission, case reviewed with my attending Dr. Boggs
ED Attending Note
-
Portions of this chart may have been created with voice recognition software.� Occasional wrong word or��sound alike� substitutions may have occurred due to the inherent limitations of voice recognition software.
Discharge Plan
Departure
Patient Disposition: Admit
Date of Disposition: 06/01/24
Time of Disposition: 20:11
Admit to: Med/Surg
Presentation/result/management discussed w/ accepting MD/DO: Hospitalist
Patient with high blood pressure during this ER visit?: Yes
Condition: Fair
Discharge Problem:
Generalized weakness, Abdominal fluid collection
Prescriptions:
No Action
cyanocobalamin (vitamin B-12) 1,000 mcg Tablet
1,000 mcg PO MOWEFR
carvedilol [Coreg] 3.125 mg Tablet
3.125 mg PO BID
rosuvastatin [Crestor] 10 mg Tablet
10 mg PO DAILY
metformin 500 mg Tablet Extended Release 24hr
1,000 mg PO BID
fenofibrate nanocrystallized [Tricor] 48 mg Tablet
48 mg PO DAILY
cholecalciferol (vitamin D3) [Vitamin D3] 25 mcg (1,000 unit) Tablet
25 mcg PO MOWEFR
Prolia 60 mg/mL Syringe
60 mg SC [id number]
Patient Comments:
Patient states that she had this injection in December of 2023.
primidone 50 mg Tablet
100 mg PO HS
acetaminophen 650 mg Tablet Extended Release
1,300 mg PO [id number] PRN (Reason: mild pain)
estradiol [Estrace] 0.01 % (0.1 mg/gram) Cream
1 g VAGINAL HS
amlodipine-valsartan 10-160 mg Tablet
0.5 tab PO DAILY
aspirin 81 mg Tablet,Chewable
81 mg PO DAILY Qty: 30 0RF
tramadol 50 mg tablet
25 - 50 mg PO Q6HPRN PRN (Reason: severe pain/breakthrough pain) Qty: 7 0RF
fluconazole 150 mg tablet
150 mg PO Q72H
lidocaine-prilocaine 2.5-2.5 % cream
1 applic topical TIDPRN PRN (Reason: vaginal pain)
Vagisil 20-3 % Cream
1 applic TOPICAL QID
polyethylene glycol 3350 [Miralax] 17 gram/dose powder
4 g PO DAILYPRN PRN (Reason: Constipation)
Rx Instructions:
start a laxative such as MIRALAX on day 2 after surgery if no bowel movement yet as long as no nausea/vomiting and passing gas
Referrals:
Ashleigh Otoole MD [Family Provider] -
Interventions
Interventions:
*Risk Screen - Suicide Last Done: 06/01/24 16:23
*Neglect/Abuse Screening Last Done: 06/01/24 16:23
ED-Skin Assessment Last Done: 06/01/24 18:05
Discharge Date and Time
Print Language: GUAMANIAN
[2024-06-01 17:53] LABS: % Basophils 0.2 % (0-2); % Eosinophils 3.9 % (0-6); % Immature Granulocytes 1.3 % (0-0.5); % Lymphocytes 8.6 % (20.5-51.1); % Monocytes 5.3 % (1.7-9.3); % Neutrophils 80.7 % (42.2-75.2); Absolute Eosinophils 0.4 10^3/uL (0-0.7); Absolute Immature Granulocytes 0.1 10^3/uL (0-0.05); Absolute Monocytes 0.6 10^3/uL (0.1-0.6); Hemoglobin 7.8 g/dL (12.0-16.0); Mean Corp Hgb Conc. 33.9 g/dL (33.0-37.0); Mean Corpuscular Hgb 34.2 pg (27.0-31.0); Mean Corpuscular Volume 100.9 fL (81.0-99.0); Mean Platelet Volume 10.7 fL (7.4-10.4); Nucleated Red Blood Cells % 0.6 %; Platelet Count 230 10^3/uL (130-400); Red Blood Cell Count 2.28 10^6/uL (4.20-5.40); Red Cell Dist. Width 19.8 % (11.5-14.5); White Blood Cell Count 11.2 10^3/uL (4.8-10.8)
[2024-06-01 17:57] LABS: ALT (SGPT) 31 U/L (0-35); AST (SGOT) 57 U/L (14-36); Alkaline Phosphatase 97 U/L (38-126); Blood Urea Nitrogen 51 mg/dl (7-17); Calcium 9.5 mg/dl (8.4-10.2); Carbon Dioxide 21 mmol/L (22-30); Chloride 102 mmol/L (98-107); Glucose 247 mg/dl (70-99); Potassium 5.1 mmol/L (3.5-5.1); Sodium 136 mmol/L (135-145); Total Bilirubin 2.7 mg/dl (0.2-1.3); Total Protein 6.5 g/dl (6.3-8.2); eGFR 45.76
[2024-06-01 18:36] LABS: Lipase 276 U/L (23-300)
--- NOTE | 2024-06-01 21:11 | HPS.HSE ---
Family Physician
-
Family Physician: Ashleigh Otoole MD
Chief Complaint
-
Weakness
History of Present Illness
78 y.o female with hypertension, hyperlipidemia, chronic UTIs, chronic kidney disease, xum-tvhlbxg-nirbrqnbx diabetes who presents emergency department today with generalized weakness and jaundice for past 4 days.
Patient is status post cholecystectomy and ERCP in May. She was discharged without any complications. Since then the patient reports that she has had no appetite, minimal oral intake, lethargy, weakness. No spouse endorsed a change in
the color of her skin saying that she 'has no colon'. Patient denies having any chest pain, shortness of breath, palpitations lightheadedness or dizziness. She denies any cough fevers or chills. She reports that the incision sites is clean dry
and intact and there was no drainage. She has no focal tenderness in that area. She has not had any vomiting. She does have nausea. Patient denies any melena. She denies any hematochezia.
In the emergency department she was afebrile with a temp of 90.2 blood pressure of 140/60. She was hypoxic with oxygen saturation of 88 to 90%. Hemoglobin was 8.8 white count was 11.2 with a normal platelet count. BUN was elevated at 51 with a
creatinine of 1.2 which is essentially at baseline. Rest of of the electrolytes were within normal limits. CT of the abdomen pelvis including a CT of the chest was negative for PE. Shows severe constipation and a elongated fluid collection in the
gallbladder fossa.
LFTs were within normal limits lipase was normal UA was pending. She has urinated since discharge but feels like she has no urine reported at this time.
Medical History
Past Medical History
Past Medical History: Reports HTN, Hypercholesterolemia and NIDDM
Additional Past Medical History:
CKD
lumbar spinal stenosis
essential tremor
mitral prolapse
Past Surgical History: Reports Cholecystectomy, , Gynocological (tubal ligation) and Orthopedic (RT L2-L4 MBB)
Social History
Tobacco: Non-smoker
Alcohol: None
Drug: None
Personal:
Living: With Family
Employment: Retired
Family History
Family History: Not pertinent
Allergies / Home Medications
Allergies reflects when Allergies were last updated in [employer].
Home Medications with original date entered in [employer]
Allergy/Medication List:
Allergies
Allergy/AdvReac Type Severity Reaction Status Date / Time
No Known Allergies Allergy Verified 06/01/24 16:23
Home Medications
carvedilol 3.125 mg tablet (Coreg) 3.125 mg PO BID 04/29/24
cholecalciferol (vitamin D3) 25 mcg (1,000 unit) tablet (Vitamin D3) 25 mcg PO MOWEFR 04/29/24
cyanocobalamin (vitamin B-12) 1,000 mcg tablet 1,000 mcg PO MOWEFR 04/29/24
denosumab 60 mg/mL subcutaneous syringe (Prolia) 60 mg SC [id number] 04/29/24
fenofibrate nanocrystallized 48 mg tablet (Tricor) 48 mg PO DAILY 04/29/24
metformin 500 mg tablet,extended release 24hr (osmotic) 1,000 mg PO BID 04/29/24
rosuvastatin 10 mg tablet (Crestor) 10 mg PO DAILY 04/29/24
acetaminophen 650 mg tablet,extended release 1,300 mg PO [id number] PRN mild pain 04/30/24
amlodipine 10 mg-valsartan 160 mg tablet 0.5 tab PO DAILY 04/30/24
estradiol 0.01% (0.1 mg/gram) vaginal cream (Estrace) 1 g vaginal HS 04/30/24
primidone 50 mg tablet 100 mg PO HS 04/30/24
aspirin 81 mg chewable tablet 81 mg PO DAILY #30 tabs 05/01/24
tramadol 50 mg tablet 25 - 50 mg (0.5 - 1 x 50 mg) PO Q6HPRN PRN severe pain/breakthrough pain #7 tabs 05/24/24
myxerrqyvo-fsakmshjwj-bffg vera-vits A,D,and E 20 %-3 % topical cream (Vagisil) 1 applic topical QID 06/01/24
fluconazole 150 mg tablet 150 mg PO Q72H 06/01/24
lidocaine-prilocaine 2.5 %-2.5 % topical cream 1 applic topical TIDPRN PRN vaginal pain 06/01/24
polyethylene glycol 3350 17 gram/dose oral powder (Miralax) 4 g PO DAILYPRN PRN Constipation 06/01/24
Review of Systems
-
History Source: Family
Constitutional: Reports Fatigue
EENT: Reports No Symptoms
Respiratory: Reports No Symptoms
Cardiac: Reports No Symptoms
Abdomen/GI: Reports Nausea
: Reports No Symptoms
Musculoskeletal: Reports No Symptoms
Skin: Reports Other (changes to skin color)
Neurological: Reports Weakness
Endocrine: Reports No Symptoms
Hematologic/Lymphatic: Reports No Symptoms
Psych: Reports No Symptoms
Physical Exam
Vital Signs
Vital Signs
Temp Pulse Resp BP Pulse Ox
98.2 F 87 19 149/64 91
06/01/24 16:23 06/01/24 17:30 06/01/24 17:30 06/01/24 16:23 06/01/24 17:30
Physical Exam
General: Poor Appetite
HEENT: NormoCephalic, Atraumatic and PERRLA
Respiratory: Clear
Cardiac: S1/S2 and Regular Rhythm
Breast: Deferred by me
GI: Soft, Non Tender, Non Distended and Normal Bowel Sounds
Rectal: Deferred by Provider
Genito-urinary: Deferred by me
Musculoskeletal: No Clubbing, No Cyanosis and No Edema
Skin: Warm
Neuro: AO x 3
Hematologic/Lymphatic: No Lymphadenopathy
Psych: Calm
Laboratory Results
-
06/01/24 17:36
06/01/24 17:36
Laboratory Results
Total Bilirubin 2.7 mg/dl (0.2-1.3) H 06/01/24 17:36
AST 57 U/L (14-36) H 06/01/24 17:36
ALT 31 U/L (0-35) 06/01/24 17:36
Alkaline Phosphatase 97 U/L (38-126) 06/01/24 17:36
Lipase 276 U/L (23-300) 06/01/24 17:36
Data Reviewed
-
Diagnostic Radiology: Image Personally Visualized and interpreted
CT Scan: Report Reviewed by me
Lab Data: Labs Reviewed by me
Old Records: Reviewed
Impression/Plan
-
IMPRESSION:
78 y.o female recently s/p cholecystectomy/ercp for cholecystitis May 23 presents to ED with loss of appetite, weakness, lethargy. LFTs mostly normal and bilirubin is trending down from previous high value. She is afebrile, hemodynamically stable.
She is hypoxic and anemic. CTA negative for PE or pneumonia. No history of COPD. CTAP with fluid in GB fossa.
PLAN:
1. Weakness - suspect dehydration and anemia playing a role s/p surgery. No other signs of active infection but can't rule out an abscess.
- admit to med/surg
- IV fluids for now
- check u/a and covid 19
- if febrile will initiate zosyn
- surgery consulted and Dr. Muro to place drain in am, NPO with breakfast.
- pt eval
2. Anemia - Hgb down to 7.8. Baseline is 8 - 9. No signs of active or recent bleed. Has macrocytic anemia
- type and screen with am labs
- check folate
- already on b12 supplementation
3. GI - Constipation/severe on CT scan
- continue bowel regimen
4. Hypoxia - No pneumonia, pe, ptx, pleural effusion. No history of cardiac disease or hypoxia. She is resting comfortable w/o sob on 2 L satting 88 but somewhat tachypneic. ?Aspiration, atelectasis. Unlikely shunt.
- nebs RTC
- incentive spirometry
- supplemental O2 to keep sat > 88%
- consider pulmonary consult in am
4. DM II
- hold metformin x 48 hours
- insulin sliding scale
5. Hypertension
- continue home antihypertenisves
DVT PPX - lovenox sq
Code status - full code
[2024-06-01 22:02] VITALS: BP 134/61
[2024-06-01] MEDS: NSS 500 IV (22:11)
[2024-06-02 00:15] VITALS: BP 156/65; BMI 24.1
--- NOTE | 2024-06-02 00:15 | PTCARENOTE ---
Pt arrived from ED via stretcher and ambulated to bed. Pt is AAOx3, VSS sating 92% on 4L NC, and w/o complaints of pain. Pt is oriented to room, resting comfortably with call kellogg within reach.
[2024-06-02] MEDS: D5LR 1000 IV (00:48)
[2024-06-02] MEDS: GAVILAX 4 GM PO (00:55)
[2024-06-02] MEDS: COREG 3.125 MG PO ×3 (01:02→21:17)
[2024-06-02] MEDS: MYSOLINE 100 MG PO ×2 (01:03→21:17)
[2024-06-02 06:11] LABS: Glucose - Point of Care 353 mg/dl (70-99)
[2024-06-02] MEDS: NOVOLOG FLEXPEN-LOW RESISTANCE 5 UNITS SC ×2 (07:23→17:49)
[2024-06-02] MEDS: DUONEB 3 ML INH ×3 (07:45→19:55)
[2024-06-02 07:46] VITALS: BP 155/71
[2024-06-02] MEDS: DIOVAN 160 MG PO (08:27)
[2024-06-02] MEDS: CRESTOR 10 MG PO (08:28)
[2024-06-02] MEDS: TRICOR 48 MG PO (08:29)
[2024-06-02] MEDS: LOW STRENGTH ASPIRIN 81 MG PO (08:29)
[2024-06-02 08:35] LABS: Hemoglobin 7.1 g/dL (12.0-16.0); Mean Corp Hgb Conc. 33.8 g/dL (33.0-37.0); Mean Corpuscular Hgb 35.3 pg (27.0-31.0); Mean Corpuscular Volume 104.5 fL (81.0-99.0); Mean Platelet Volume 10.5 fL (7.4-10.4); Platelet Count 203 10^3/uL (130-400); Red Blood Cell Count 2.01 10^6/uL (4.20-5.40); Red Cell Dist. Width 20.7 % (11.5-14.5)
[2024-06-02 08:55] LABS: ALT (SGPT) 31 U/L (0-35); AST (SGOT) 53 U/L (14-36); Albumin 3.5 g/dl (3.5-5.0); Alkaline Phosphatase 94 U/L (38-126); Direct Bilirubin 1.8 mg/dl (0.0-0.4); Total Bilirubin 3.1 mg/dl (0.2-1.3); Total Protein 5.9 g/dl (6.3-8.2)
[2024-06-02 09:00] LABS: Blood Urea Nitrogen 44 mg/dl (7-17); Calcium 9.1 mg/dl (8.4-10.2); Carbon Dioxide 21 mmol/L (22-30); Chloride 101 mmol/L (98-107); Estimated Creatinine Clearance 37 ml/min; Glucose 293 mg/dl (70-99); Potassium 4.6 mmol/L (3.5-5.1); Sodium 134 mmol/L (135-145)
[2024-06-02 09:45] LABS: Urine Albumin Trace (Neg - Trace); Urine Bilirubin 1+ (Negative); Urine Character Clear (Clear); Urine Color Amber; Urine Glucose Trace (Negative); Urine Ketone Negative (Negative); Urine Leukocyte Trace (Negative); Urine Nitrite Negative (Negative); Urine Occult Blood Negative (Negative); Urine Urobilinogen 1+ (Neg - 1+)
[2024-06-02 09:55] LABS: Urine Bacteria Few (Negative); Urine Red Blood Cell 0-2 /HPF (0-2); Urine Squamous Cell >30 /LPF (Few); Urine White Cell 0-2 /HPF (0-5)
--- NOTE | 2024-06-02 10:07 | CON.GS ---
Consultation
-
Date/Time Consultation Requested: 06-01-2024/21:11
Date/Time Consultation Performed: 06-02-2024/9:30 Am
Requesting Provider: Michael Colmenares
Performing Provider: Sarwat Muro
Reason for Consultation: Abdominal Fluid Collection
Medical History
-
Chief Complaint: Weakness
History of Present Illness:
pt is a 78 year old female with a past medical history of hypertension, hypercholesterolemia, chronic kidney disease, jak-ljrfoik-veafqohlg diabetes who is status post cholecystectomy with ERCP on May 24.
Since her discharge on May 24 the patient reports that she has had no appetite, minimal oral intake, lethargy, weakness. Her incision sites are clean dry with no drainage with no tenderness. No vomiting. nausea, melena, hematochezia, fever,
chills, cough.
CT of the chest was negative for PE. CT abdomen shows severe constipation and a small 5 mm elongated fluid collection in the gallbladder fossa.
Has urinated this morning, no bowel movement for since her surgery on May 23, currently on NPO, on 4L NC with oxygen saturation 92%.
Labs show macrocytic anemia, lymphopenia, and elevated creatinine level.
Past Medical History
Past Medical History: HTN, Hypercholesterolemia, NIDDM, Renal Failure and Other (Lumbar spinal stenosis, mitral prolapse, essential tremor)
Social History
Tobacco: Non-Smoker
Alcohol: None
Drug: None
Personal:
Living: With Family
Employment: Retired
Family History
Family History: Reviewed & Not Pertinent
Allergies / Home Medications
Allergy/AdvReac Type Severity Reaction Status Date / Time
No Known Allergies Allergy Verified 06/01/24 16:23
�Medication �Instructions �Recorded �Confirmed �Type
carvedilol 3.125 mg tablet (Coreg) 3.125 mg PO BID 04/29/24 06/01/24 History
cholecalciferol (vitamin D3) 25 25 mcg PO MOWEFR 04/29/24 06/01/24 History
mcg (1,000 unit) tablet (Vitamin
D3)
cyanocobalamin (vitamin B-12) 1,000 mcg PO MOWEFR 04/29/24 06/01/24 History
1,000 mcg tablet
denosumab 60 mg/mL subcutaneous 60 mg SC [id number] 04/29/24 06/01/24 History
syringe (Prolia)
fenofibrate nanocrystallized 48 mg 48 mg PO DAILY 04/29/24 06/01/24 History
tablet (Tricor)
metformin 500 mg tablet,extended 1,000 mg PO BID 04/29/24 06/01/24 History
release 24hr (osmotic)
rosuvastatin 10 mg tablet (Crestor) 10 mg PO DAILY 04/29/24 06/01/24 History
acetaminophen 650 mg 1,300 mg PO [id number] PRN mild pain 04/30/24 06/01/24 History
tablet,extended release
amlodipine 10 mg-valsartan 160 mg 0.5 tab PO DAILY 04/30/24 06/01/24 History
tablet
estradiol 0.01% (0.1 mg/gram) 1 g vaginal HS 04/30/24 06/01/24 History
vaginal cream (Estrace)
primidone 50 mg tablet 100 mg PO HS 04/30/24 06/01/24 History
aspirin 81 mg chewable tablet 81 mg PO DAILY #30 tabs 05/01/24 06/01/24 Rx
tramadol 50 mg tablet 25 - 50 mg (0.5 - 1 x 50 mg) PO 05/24/24 06/01/24 Rx
Q6HPRN PRN severe
pain/breakthrough pain #7 tabs
dqfdgonpit-ezytckosay-jaws 1 applic topical QID 06/01/24 06/01/24 History
vera-vits A,D,and E 20 %-3 %
topical cream (Vagisil)
fluconazole 150 mg tablet 150 mg PO Q72H 06/01/24 06/01/24 History
lidocaine-prilocaine 2.5 %-2.5 % 1 applic topical TIDPRN PRN 06/01/24 06/01/24 History
topical cream vaginal pain
polyethylene glycol 3350 17 4 g PO DAILYPRN PRN Constipation 06/01/24 06/01/24 History
gram/dose oral powder (Miralax)
Review of Systems
-
History Source: Patient
Constitutional: Other (weakness)
Respiratory: No Symptoms
Cardiac: No Symptoms
Abdomen/GI: No Symptoms
Skin: Other (Jaundiced appearence)
A 10 point review of systems was completed, and was negative except as per HPI.
Physical Exam
Vital Signs
Temp Pulse Resp BP Pulse Ox
97.8 F 84 15 155/71 91
06/02/24 07:46 06/02/24 08:29 06/02/24 07:51 06/02/24 08:29 06/02/24 07:51
06/01/24 06/02/24 06/03/24
06:59 06:59 06:59
Actual Weight 65.771 kg
Body Mass Index (BMI) 24.1
Lab Results
06/02/24 07:56
06/02/24 07:56
WBC 11.0 10^3/uL (4.8-10.8) H 06/02/24 07:56
Hgb 7.1 g/dL (12.0-16.0) L 06/02/24 07:56
Hct 21.0 % (37.0-47.0) L 06/02/24 07:56
Plt Count 203 10^3/uL (130-400) 06/02/24 07:56
Abs Immat Gran (auto) 0.1 10^3/uL (0-0.05) H 06/01/24 17:36
Neutrophils % 80.7 % (42.2-75.2) H 06/01/24 17:36
Physical Exam
General: Poor Appetite
GI: Non Tender, Non Distended, Normal Bowel Sounds and Incisions (clean, dry, non tender from laparoscopic cholecystectomy)
Skin: Warm and Dry
Neuro: Awake, Alert, Oriented and AO x 3
Data Reviewed
-
CT Scan: Image Personally Visualized and interpreted, Report Reviewed by me and Discussed with Physician
Medical Tests (Nuc Med, Echo etc): Image Personally Visualized and interpreted, Report Reviewed by me and Discussed with Physician
Labs: Labs Reviewed by me and Discussed with Physician
Assessment / Plan
-
Plan:
- due to size of the fluid collection, will not be draining the fluid collection
- No clinical symptoms of post cholecystectomy complications such as bile leak, bleeding, or infection
- Ordered HIDA scan to visualize the gallbladder bile ducts
- Ordered MRI abdomen
- Ordered Zoysn to target intraabdominal pathogens
- Continue NPO
- Continue patient on PEG for constipation
- Trend labs
[2024-06-02] MEDS: D5LR IV (11:16)
[2024-06-02] MEDS: DUONEB INH (11:28)
--- NOTE | 2024-06-02 11:44 | CON.GS ---
Medical History
-
Chief Complaint: Dark urine, yellow skin and malaise
History of Present Illness:
Patient is an 78-year-old female recently known to myself status post laparoscopic cholecystectomy with intraoperative cholangiogram 05/23/2024 secondary to a history of choledocholithiasis with previous bout of a ascending cholangitis as well as
suspected chronic cholecystitis. Operative procedure proceeded uneventfully. Gallbladder with stones confirmed, intraoperative cholangiogram was performed and normal. Gallbladder extracted intact at the epigastric port site. She was monitored
overnight and discharged home on the morning of postoperative day 1.
Patient states that her initial postoperative recovery was unremarkable and she started to gain back some strength but on postoperative day 4-5 she began noticing dark-colored urine, faint yellow coloring of her skin, anorexia, nausea and fatigue.
Her symptoms persisted and she called our office yesterday to update and was referred for emergency department evaluation and workup. Patient states that she also has not had a bowel movement since her operative procedure 10 days ago but is passing
flatus.
Denies significant abdominal pain. Incisional pain improving.
Past Medical History
Past Medical History: Other (Hypertension, lumbar spinal stenosis, osteoporosis, type 2 diabetes, stage III CKD,)
Past Surgical History: Other (Carpal tunnel, lumbar spine procedures, cataracts, ERCP sphincterotomy stone extraction, laparoscopic cholecystectomy with intraoperative cholangiogram)
Social History
Tobacco: Non-Smoker
Alcohol: None
Personal:
Living: With Family
Family History
Family History: Reviewed & Not Pertinent
Allergies / Home Medications
Allergy/AdvReac Type Severity Reaction Status Date / Time
No Known Allergies Allergy Verified 06/01/24 16:23
�Medication �Instructions �Recorded �Confirmed �Type
carvedilol 3.125 mg tablet (Coreg) 3.125 mg PO BID 04/29/24 06/01/24 History
cholecalciferol (vitamin D3) 25 25 mcg PO MOWEFR 04/29/24 06/01/24 History
mcg (1,000 unit) tablet (Vitamin
D3)
cyanocobalamin (vitamin B-12) 1,000 mcg PO MOWEFR 04/29/24 06/01/24 History
1,000 mcg tablet
denosumab 60 mg/mL subcutaneous 60 mg SC [id number] 04/29/24 06/01/24 History
syringe (Prolia)
fenofibrate nanocrystallized 48 mg 48 mg PO DAILY 04/29/24 06/01/24 History
tablet (Tricor)
metformin 500 mg tablet,extended 1,000 mg PO BID 04/29/24 06/01/24 History
release 24hr (osmotic)
rosuvastatin 10 mg tablet (Crestor) 10 mg PO DAILY 04/29/24 06/01/24 History
acetaminophen 650 mg 1,300 mg PO [id number] PRN mild pain 04/30/24 06/01/24 History
tablet,extended release
amlodipine 10 mg-valsartan 160 mg 0.5 tab PO DAILY 04/30/24 06/01/24 History
tablet
estradiol 0.01% (0.1 mg/gram) 1 g vaginal HS 04/30/24 06/01/24 History
vaginal cream (Estrace)
primidone 50 mg tablet 100 mg PO HS 04/30/24 06/01/24 History
aspirin 81 mg chewable tablet 81 mg PO DAILY #30 tabs 05/01/24 06/01/24 Rx
tramadol 50 mg tablet 25 - 50 mg (0.5 - 1 x 50 mg) PO 05/24/24 06/01/24 Rx
Q6HPRN PRN severe
pain/breakthrough pain #7 tabs
[id number]-hmnkafptci-gspq 1 applic topical QID 06/01/24 06/01/24 History
vera-vits A,D,and E 20 %-3 %
topical cream (Vagisil)
fluconazole 150 mg tablet 150 mg PO Q72H 06/01/24 06/01/24 History
lidocaine-prilocaine 2.5 %-2.5 % 1 applic topical TIDPRN PRN 06/01/24 06/01/24 History
topical cream vaginal pain
polyethylene glycol 3350 17 4 g PO DAILYPRN PRN Constipation 06/01/24 06/01/24 History
gram/dose oral powder (Miralax)
Review of Systems
-
History Source: Patient
All other systems: Negative unless noted
A 10 point review of systems was completed, and was negative except as per HPI.
Physical Exam
Vital Signs
Temp Pulse Resp BP Pulse Ox
97.8 F 84 15 155/71 91
06/02/24 07:46 06/02/24 08:29 06/02/24 07:51 06/02/24 08:29 06/02/24 08:00
06/01/24 06/02/24 06/03/24
06:59 06:59 06:59
Actual Weight 65.771 kg
Body Mass Index (BMI) 24.1
Lab Results
06/02/24 07:56
06/02/24 07:56
WBC 11.0 10^3/uL (4.8-10.8) H 06/02/24 07:56
Hgb 7.1 g/dL (12.0-16.0) L 06/02/24 07:56
Hct 21.0 % (37.0-47.0) L 06/02/24 07:56
Plt Count 203 10^3/uL (130-400) 06/02/24 07:56
Abs Immat Gran (auto) 0.1 10^3/uL (0-0.05) H 06/01/24 17:36
Neutrophils % 80.7 % (42.2-75.2) H 06/01/24 17:36
Physical Exam
General: Well Developed, Well Nourished and No Apparent Distress (But acutely ill-appearing)
HEENT: Normocephalic, Atraumatic and Scleral Icterus
Respiratory: Non Labored Respirations and Other (Supplemental nasal cannula oxygen)
Cardiac: Regular Rhythm
GI: Soft, Non Distended, Tender (Minimal tenderness at incision sites, no rebound, no rigidity, no guarding) and Incisions (Healing well with surgical glue in place)
Skin: Jaundice
Neuro: AO x 3
Psych: Calm
Data Reviewed
-
CT Scan: Image Personally Visualized and interpreted, Report Reviewed by me, Discussed with Physician and Discussed with Patient
Labs: Labs Reviewed by me and Discussed with Physician
Assessment / Plan
-
Assessment: 78-year-old female postoperative day 10 status post lap jerome admitted with anorexia, leukocytosis and postoperative jaundice postoperative constipation.
CT imaging reviewed. Minimal amount of fluid in the postop surgical field adjacent to gallbladder fossa, no free fluid or ascites. Residual air within the biliary tree no clear CT imaging evidence of choledocholithiasis or biliary ductal dilation.
No evidence of obstruction. No free air, no pneumatosis, significant stool burden but without evidence of colitis. Rectosigmoid colon without significant stool.
Presentation not typical for bile leak but remains on differential diagnosis, postoperative fluid collection only 9 mm x 11 mm and 5.8 cm long therefore not drainable and within reasonable expectations for recent cholecystectomy. There was no
spillage of stones or bile during cholecystectomy. CT imaging suggestive of mild inflammatory interstitial pneumonitis. May have retained gallstone although intraoperative cholangiogram was negative.
Plan: Initiate antibiotic coverage of biliary tree empirically with ongoing workup given leukocytosis
Obtain HIDA scan to confirm no evidence of bile leak
Obtain MRCP to evaluate for possible retained gallstone/choledocholithiasis
Agree with initiating bowel regimen
Continue other supportive care per hospitalist. Appreciate assistance with admission and ongoing medical management.
[2024-06-02 12:51] LABS: Glucose - Point of Care 276 mg/dl (70-99)
[2024-06-02] MEDS: MIRALAX 17 GRAMS PO (13:02)
[2024-06-02] MEDS: LASIX 40 MG IV (13:02)
[2024-06-02] MEDS: DULCOLAX 10 MG PO (13:02)
[2024-06-02] MEDS: NOVOLOG FLEXPEN-LOW RESISTANCE 3 UNITS SC (13:04)
[2024-06-02] MEDS: ZOSYN 50 IV ×3 (13:04→21:17)
--- NOTE | 2024-06-02 13:24 | W.PN.HOSP.TC ---
Today's Communication/Plan
-
see note
Assessment / Plan
Assessment / Plan
CHEST CTA:
1. Severe calcific atherosclerotic plaque in the coronary arteries.
2. Mild cardiomegaly.
3. Mild inflammatory interstitial pneumonitis in the basilar segments of the lower lobes.
ABDOMEN and PELVIS:
1. Large amount of fecal material throughout the proximal colon suggesting SEVERE CONSTIPATION.
2. Small 5.8 cm tubular-shaped fluid collection in the gallbladder fossa adjacent to cholecystectomy surgical clips without surrounding inflammation.
3. Moderate pneumobilia consistent with previous biliary sphincterotomy.
4. Mild enlargement of the right lobe of the liver.
5. Moderate to severe pancreatic lipomatosis.
6. Moderate portacaval lymphadenopathy.
7. Mild to moderate chronic bilateral renal disease.
8. Severe calcific atherosclerotic plaque in the abdominal aorta and femoral arteries.
9. Previous hysterectomy.
10. Mild distention of the urinary bladder.
11. Severe multilevel discogenic degenerative disease and facet joint arthrosis in the lumbar spine.
12. Severe superior and inferior endplate fractures of L1 with near complete vertebral body collapse and retropulsion of the posterior cortex into the anterior epidural space.
HIDA
No scintigraphic evidence of common bile duct obstruction. No evidence to suggest bile leak. Findings consistent with reflux accumulation of intraluminal radiotracer within the duodenal bulb.

1. Gallbladder fossa fluid collection
Elevated T doris
s/p lap cholecystectomy on 05/23
-Possible postoperative seroma versus infected fluid (clinically less likely )
-No significant abdominal pain/nausea
-Total bilirubin 3.1 with direct 1.8. ALT 31 AST 53 essentially normal.
-Cover empirically for any cholangitis/infection with Zosyn for now
-General Surgery evaluated and HIDA did not show any blockage or bile leakage
-MRI/MRCP declined by patient
2. Acute hypoxic resp insufficiency
-CXR showing interstitial pneumonitis vs scarring
-CT chest PE neg, no significant parenchymal changes
-providing empiric IV lasix 40mgx1
-wean off o2 as possible
3. Post op anemia on Chronic normocytic anemia
-Hemoglobin 7.1, provide 1 unit of PRBC
-Denies melena/blood in stool.
-Preoperative baseline hemoglobin of 10.
4. CKDIIIA
-cr close to baseline, monitor
5. Type II DM
-Resume back metformin, adding NovoLog 3U AC with sliding scale
6. Hyponatremia
-minimal, continue monitoring.
7. Generalized weakness
-PT OT evaluation
Essential hypertension
Lumbar spinal stenosis
History of mitral prolapse
history of
Full code
Total time spent : 52 mins
Care plan discussed with GS
Anticipated Discharge: 24 - 48 hours
Subjective/Interval History
-
Date of Service: June 02, 2024
not feeling well
feeling tired/fatigued
Denies shortness of breath/cough/nausea/abd pain
Objective Data
-
Labs:
Laboratory Results
06/02/24
07:56
WBC 11.0 H
Hgb 7.1 L
Hct 21.0 L
Plt Count 203
Sodium 134 L
Potassium 4.6
Chloride 101
Carbon Dioxide 21 L
BUN 44 H
Creatinine 1.1 H
Glucose 293 H
Calcium 9.1
Total Bilirubin 3.1 H
AST 53 H
ALT 31
Alkaline Phosphatase 94
Vital Signs:
Vital Signs
Temp Pulse Resp BP Pulse Ox
97.8 F 84 15 155/71 91
06/02/24 07:46 06/02/24 13:02 06/02/24 07:51 06/02/24 13:02 06/02/24 08:00
I&O
06/01/24 06/02/24 06/03/24
06:59 06:59 06:59
Intake Total 0 / 0
Balance 0 / 0
Review of Systems
-
Respiratory: Reports No Symptoms
Cardiac: Reports No Symptoms
Abdomen/GI: Reports No Symptoms
Physical Exam
-
General: No Apparent Distress and Comfortable
HEENT: Negative Oxygen
Respiratory: Clear to Auscultation
Cardiac: Regular Rhythm and S1/S2; Negative Murmur or Rub
GI: Soft, Nontender, Nondistended and Normal Bowel Sounds
Musculoskeletal: No Edema
Neuro: Awake, Alert, Oriented, No Motor Deficits and Nonfocal/Grossly Intact
Psych: Calm
--- NOTE | 2024-06-02 13:51 | CM ---
Patient seen at bedside, nursing working with patient, Patient answered all questions. Patient lives with in a 2 story home. Patient has a walker, stairlift, grab bars and shower chair. No O2 needs and patient very
supportive. Patient PCP is Dr. Otoole and she uses the [facility]. Patient is a retired RN per nursing. CM will continue to follow for discharge planning needs. CM w3ill continue to follow for discharge planning needs.
Plan; home with VN vs home with no needs; pending PT/OT assessment, medical treatment plan.
[2024-06-02 14:13] VITALS: BP 138/60
[2024-06-02 14:31] VITALS: BP 130/56
[2024-06-02 16:39] LABS: Glucose - Point of Care 381 mg/dl (70-99)
[2024-06-02 17:26] VITALS: BP 137/64
[2024-06-02] MEDS: NOVOLOG FLEXPEN 3 UNITS SC (17:50)
[2024-06-02] MEDS: GLUCOPHAGE 500 MG PO (17:51)
[2024-06-02] MEDS: LOVENOX 40 MG SC (17:51)
--- NOTE | 2024-06-02 18:22 | PTCARENOTE ---
pt received one unit of blood. pt tolerated the infusion.
[2024-06-02 21:18] LABS: Glucose - Point of Care 279 mg/dl (70-99)
[2024-06-02 23:37] VITALS: BP 101/48
[2024-06-03] MEDS: ZOSYN 50 IV ×2 (04:08→08:59)
[2024-06-03 06:37] LABS: Glucose - Point of Care 245 mg/dl (70-99)
[2024-06-03] MEDS: NOVOLOG FLEXPEN-LOW RESISTANCE 2 UNITS SC (06:38)
[2024-06-03] MEDS: DUONEB 3 ML INH ×3 (07:46→19:23)
[2024-06-03 08:14] VITALS: BP 112/54
[2024-06-03 08:20] LABS: Hematocrit 25.1 % (37.0-47.0); Hemoglobin 8.5 g/dL (12.0-16.0); Mean Corp Hgb Conc. 33.9 g/dL (33.0-37.0); Mean Corpuscular Hgb 34.8 pg (27.0-31.0); Mean Corpuscular Volume 102.9 fL (81.0-99.0); Mean Platelet Volume 10.5 fL (7.4-10.4); Platelet Count 235 10^3/uL (130-400); Red Blood Cell Count 2.44 10^6/uL (4.20-5.40); Red Cell Dist. Width 20.8 % (11.5-14.5); White Blood Cell Count 11.2 10^3/uL (4.8-10.8)
[2024-06-03 08:35] LABS: ALT (SGPT) 37 U/L (0-35); AST (SGOT) 69 U/L (14-36); Albumin 3.7 g/dl (3.5-5.0); Alkaline Phosphatase 90 U/L (38-126); Blood Urea Nitrogen 47 mg/dl (7-17); Calcium 9.3 mg/dl (8.4-10.2); Carbon Dioxide 25 mmol/L (22-30); Chloride 103 mmol/L (98-107); Estimated Creatinine Clearance 29 ml/min; Glucose 213 mg/dl (70-99); Potassium 4.4 mmol/L (3.5-5.1); Sodium 138 mmol/L (135-145); Total Protein 6.2 g/dl (6.3-8.2); eGFR 38.03
[2024-06-03] MEDS: NOVOLOG FLEXPEN SC (08:50)
[2024-06-03] MEDS: GLUCOPHAGE 500 MG PO ×2 (08:51→17:12)
[2024-06-03] MEDS: DIOVAN 160 MG PO (08:51)
[2024-06-03] MEDS: TRICOR 48 MG PO (08:51)
[2024-06-03] MEDS: CRESTOR 10 MG PO (08:51)
[2024-06-03] MEDS: LOW STRENGTH ASPIRIN 81 MG PO (08:52)
[2024-06-03] MEDS: COREG 3.125 MG PO ×2 (08:52→20:59)
[2024-06-03] MEDS: MIRALAX PO (08:57)
[2024-06-03 09:33] VITALS: BP 129/58; PULSE 95; O2SAT 96
--- NOTE | 2024-06-03 10:31 | W.PN.GS2 ---
Addendum entered and electronically signed by Sarwat Muro MD 06/03/24 14:52:
Patient seen and examined. Continues without any abdominal pain.
Persistent anorexia but trying p.o. intake today.
Fatigue a bit improved. No fevers chills or sweats.
Multiple large bowel movements
AFVSS
NAD, AAOx3, sitting up at bedside in chair
ABD: Soft, protuberant, nontender on palpation. Surgical sites with glue dressings, clean.
WBC stable at 11.2. Hemoglobin improved to 8.5. Chemistries notable with stable mild elevation of total bilirubin AST and ALT with normal alkaline phosphatase.
MRI with no bile duct dilation but possible subtle extrinsic compression of the lumen along the lateral aspect with mild short segment luminal narrowing of uncertain etiology. Postsurgical reactive changes but without fluid collection or abscess.
Assessment/plan: 78-year-old female readmitted postop day 11 status post lap jerome with IOC with postoperative jaundice, anorexia
No bile leak
MRI negative for choledocholithiasis but there may be some extrinsic compression of the distal lumen of the common bile duct of uncertain etiology
Given MRI findings would recommend GI consultation for consideration of EUS/plus minus ERCP
Otherwise continue current supportive care and diet as tolerated
Original Note:
Today's Communication / Plan
-
- MRI pending
- Continue on antibiotics
Assessment / Plan
-
- No clinical symptoms of post cholecystectomy complications such as bile leak, bleeding, or infection
- HIDA scan was negative for common bile duct obstruction and bile reflux
- MRI abdomen pending
- Continue on Zoysn
- Continue NPO
- Continue patient on PEG for constipation
- Trend labs
Subjective Data
-
Date of Service: June 03, 2024
pt is a 78 year old female with a past medical history of hypertension, hypercholesterolemia, chronic kidney disease, [id number] diabetes who is status post cholecystectomy with ERCP on May 24.
Since her discharge on May 24 the patient reports that she has had no appetite, minimal oral intake, lethargy, weakness. Her incision sites are clean dry with no drainage with no tenderness. She reports having a bowel movement today morning.
Currently NPO. Also reports the onset of a dry onset cough since yesterday and feeling of 'itchiness' all over body. Scheduled to have MRI scan today.
Objective Data
-
Intake and Output
06/02/24 06/03/24 06/04/24
06:59 06:59 06:59
Intake Total 0 / 0 570 / 570
Balance 0 / 0 570 / 570
Intake:
Oral fluids 0 / 0 320 / 320
Blood Product Amount Infused ( 250 / 250
mL)
Packed Rbc Leukoreduced Unit 250 / 250
[id number]
Other:
Number of approximated MODERATE 2 2 2
amounts of urine
Vital Signs
Temp Pulse Resp BP Pulse Ox
98.8 F 80 18 112/54 97
06/03/24 08:14 06/03/24 08:51 06/03/24 08:43 06/03/24 08:51 06/03/24 09:52
Lab Results
06/03/24 07:34
06/03/24 07:34
Calcium 9.3 mg/dl (8.4-10.2) 06/03/24 07:34
Total Bilirubin 3.0 mg/dl (0.2-1.3) H 06/03/24 07:34
Direct Bilirubin 1.8 mg/dl (0.0-0.4) H 06/02/24 07:56
AST 69 U/L (14-36) H 06/03/24 07:34
ALT 37 U/L (0-35) H 06/03/24 07:34
Alkaline Phosphatase 90 U/L (38-126) 06/03/24 07:34
Total Protein 6.2 g/dl (6.3-8.2) L 06/03/24 07:34
Albumin 3.7 g/dl (3.5-5.0) 06/03/24 07:34
[2024-06-03 10:32] VITALS: BP 115/57; BP 129/58; PULSE 85; O2SAT 97
[2024-06-03 11:26] LABS: COVID-19 Antigen Negative (Negative)
[2024-06-03 12:56] LABS: Glucose - Point of Care 307 mg/dl (70-99)
[2024-06-03] MEDS: NOVOLOG FLEXPEN-LOW RESISTANCE 4 UNITS SC (12:59)
[2024-06-03] MEDS: NOVOLOG FLEXPEN 3 UNITS SC (13:00)
[2024-06-03] MEDS: LANTUS 0.1 UNITS SC (13:25)
--- NOTE | 2024-06-03 13:40 | PN.CDI ---
CDI
- -
CDI:
Physician Documentation Request
Admit Date: 06/01/24 22:19
Dear Doctor Dung,
Please review the following and provide your response in the progress notes.
Clinical Indicators:
Pt admitted with suspected postop seroma /fluid collection
Documented per ED, ' Of note, patient had a cholecystectomy on May 23, 2024. ..'
Progress note 06/02, ' Post op anemia on Chronic normocytic anemia-Hemoglobin 7.1, provide 1 unit of PRBC Preoperative baseline hemoglobin of 10.'
Based on the above, could you clarify, in your progress note, which of the following is the most likely type of anemia you are evaluating, monitoring and/or treating?
Acute blood loss anemia from recent surgery/ Chronic Anemia
Post op Anemia only
Other ( please specify)
Use of terms such as suspected, likely, concern for, or probable (associated with a specific diagnosis that is being evaluated, monitored, or treated as if it exists) are acceptable and can be coded in the inpatient setting, when documented at the
time of discharge.
Thank you,
Maria C Berry RN
CDI Specialist
[facility] [facility]
Please use your independent medical judgment in providing your response.
[2024-06-03] MEDS: TYLENOL 650 MG PO ×2 (14:37→21:09)
[2024-06-03] MEDS: DUONEB INH (15:07)
--- NOTE | 2024-06-03 15:57 | W.PN.HOSP.TC ---
Addendum entered and electronically signed by Omar Razo MD 06/03/24 16:48:
Adjust dx
Acute blood loss anemia from recent surgery/ Chronic Anemia
Original Note:
Today's Communication/Plan
-
see note
Assessment / Plan
Assessment / Plan
CHEST CTA:
1. Severe calcific atherosclerotic plaque in the coronary arteries.
2. Mild cardiomegaly.
3. Mild inflammatory interstitial pneumonitis in the basilar segments of the lower lobes.
ABDOMEN and PELVIS:
1. Large amount of fecal material throughout the proximal colon suggesting SEVERE CONSTIPATION.
2. Small 5.8 cm tubular-shaped fluid collection in the gallbladder fossa adjacent to cholecystectomy surgical clips without surrounding inflammation.
3. Moderate pneumobilia consistent with previous biliary sphincterotomy.
4. Mild enlargement of the right lobe of the liver.
5. Moderate to severe pancreatic lipomatosis.
6. Moderate portacaval lymphadenopathy.
7. Mild to moderate chronic bilateral renal disease.
8. Severe calcific atherosclerotic plaque in the abdominal aorta and femoral arteries.
9. Previous hysterectomy.
10. Mild distention of the urinary bladder.
11. Severe multilevel discogenic degenerative disease and facet joint arthrosis in the lumbar spine.
12. Severe superior and inferior endplate fractures of L1 with near complete vertebral body collapse and retropulsion of the posterior cortex into the anterior epidural space.
HIDA
No scintigraphic evidence of common bile duct obstruction. No evidence to suggest bile leak. Findings consistent with reflux accumulation of intraluminal radiotracer within the duodenal bulb.
MRI abd
Heterogeneous signal in the gallbladder fossa, as described. Most consistent with postsurgical reactive soft tissue changes. The differential may include microabscess formation, though felt to be less likely given the absence of significant adjacent
inflammatory changes.
No ascites.
Subtle extrinsic compression along the left lateral margin of the distal common bile duct lumen. Possibly related to wall thickening which may be inflammatory or neoplastic. There is also suggestion of a 4.4 mm prevascular nodule adjacent pancreatic
head, possibly associated with a vessel, raising possibility of microaneurysm. A small neoplasm, such as neuroendocrine tumor may also be considered.
Diffuse atrophy with fatty replacement. Numerous tiny cystic structures. Nonspecific. May be related to chronic pancreatitis, with side branches distention, versus small branch type intraductal papillary mucinous neoplasm. No main pancreatic ductal
dilatation. No acute pancreatitis.

1. Gallbladder fossa fluid collection
Elevated T doris
s/p lap cholecystectomy on 05/23
-Possible postoperative seroma versus infected fluid (clinically less likely )
-No significant abdominal pain/nausea
-Total bilirubin 3.1 with direct 1.8. ALT 31 AST 53 essentially normal at admission.
-Cover empirically for any cholangitis/infection with Zosyn for now
-General Surgery evaluated and HIDA did not show any blockage or bile leakage
-MRI abd report as above. Atypical finding of questionable pancreatic head nodule/CBD compression? will require f/u with GI in office
2. Acute hypoxic resp insufficiency - resolved
-CXR showing interstitial pneumonitis vs scarring
-CT chest PE neg, no significant parenchymal changes
-providing empiric IV lasix 40mgx1
-Complaining some cough dry cough today, chest x-ray showing questionable interstitial pneumonitis versus pneumonia
-Adjust antibiotic to Unasyn and doxycycline
-Check procalcitonin in the morning
3. Post op anemia on Chronic normocytic anemia
-Hemoglobin 7.1 at admission, s/p 1 unit of PRBC hbg 8.5
-Denies melena/blood in stool.
-Preoperative baseline hemoglobin of 10.
4. CKDIIIA
-cr close to baseline, monitor
5. Type II DM
-Resume back metformin, adding NovoLog 3U AC with sliding scale
6. Hyponatremia
-minimal, continue monitoring.
7. Generalized weakness
-PT OT evaluation
Essential hypertension
Lumbar spinal stenosis
History of mitral prolapse
history of
Full code
Anticipated Discharge: 24 - 48 hours
Subjective/Interval History
-
Date of Service: June 03, 2024
Denies any dyspnea/have some dry cough
no abd pain/nausea/vomiting
Objective Data
-
Labs:
Laboratory Results
06/03/24
07:34
WBC 11.2 H
Hgb 8.5 L
Hct 25.1 L
Plt Count 235
Sodium 138
Potassium 4.4
Chloride 103
Carbon Dioxide 25
BUN 47 H
Creatinine 1.4 H
Glucose 213 H
Calcium 9.3
Total Bilirubin 3.0 H
AST 69 H
ALT 37 H
Alkaline Phosphatase 90
Vital Signs:
Vital Signs
Temp Pulse Resp BP Pulse Ox
98.8 F 80 18 112/54 97
06/03/24 08:14 06/03/24 08:51 06/03/24 08:43 06/03/24 08:51 06/03/24 09:52
I&O
06/02/24 06/03/24 06/04/24
06:59 06:59 06:59
Intake Total 0 / 0 570 / 570
Balance 0 / 0 570 / 570
Review of Systems
-
Respiratory: Reports Cough
Cardiac: Reports No Symptoms
Abdomen/GI: Reports No Symptoms
Physical Exam
-
General: No Apparent Distress and Comfortable
HEENT: Negative Oxygen
Respiratory: Clear to Auscultation
Cardiac: Regular Rhythm and S1/S2; Negative Murmur or Rub
GI: Soft, Nontender, Nondistended and Normal Bowel Sounds
Musculoskeletal: No Edema
Neuro: Awake, Alert, Oriented, No Motor Deficits and Nonfocal/Grossly Intact
Psych: Calm
[2024-06-03 16:03] VITALS: BP 123/56
--- NOTE | 2024-06-03 16:07 | CON.GI ---
Addendum entered and electronically signed by Zeenat Bustos DO 06/03/24 19:00:
Patient seen and examined independently of DESIREE. I agree with her note with my additions below
Jenifer is an 78-year-old female with history of diabetes, hypertension, recurrent UTIs who came in initially in April with cholangitis with choledocholithiasis sent from [facility]. Underwent ERCP on April 29, 2024. During that
time she had an elevated troponin during that time and had an outpatient stress test done. Then on May 23 that she underwent a laparoscopic cholecystectomy. Also has chronic anemia states she has never had a blood transfusion. She has never
had a colonoscopy. I reviewed the surgical report from Dr. Muro from 05/23/2024. The gallbladder was enlarged but not distended and had numerous stones. Since discharge her has had her on a strict low-fat diet. She states she is lost
about 12 pounds because of this. She has been very weak. According to the notes around postoperative day 4 5 she does started noticing some dark-colored urine. Fullness and early satiety with some mild nausea and fatigue. She was sent to the
emergency room. She also had not had a bowel movement since her operation on 05/23/2024. Upon admission her creatinine was 1.4 which is not far from her baseline, total bilirubin 3.1, direct bilirubin 1.8, AST 53, ALT 31, alkaline phosphatase 94,
lipase 276. And was given 1 unit of blood. She has no overt bleeding and her stools are brown. She has been afebrile with stable vital signs. MRI/MRCP was completed along the left lateral margin of the distal common bile duct there is a subtle
extrinsic compression. Mild short segment luminal narrowing. Possibly inflammatory. The pancreas is diffusely atrophic with numerous tiny cystic structures in the head body and tail. Largest cyst is 10.5 mm. No abnormal enhancement. No main
pancreatic ductal dilatation. No acute inflammation. Normal spleen. Patient has never had pancreatitis. She does not drink or smoke.
# Significant constipation with no bowel movement since discharge on 05/23/2024 -bowel regimen. Patient had Dulcolax and MiraLAX yesterday and has gone 4 times since. She refused the laxatives today
# Weakness, fatigue, anorexia, early satiety and abnormal MRI -the MRI is not very impressive but will proceed with EUS which can be done outpatient depending on her clinical status over the weekend
# Despite her glucoses being elevated I did change her over to a regular diet. She is not eating much anyway and would like to get some calories into her
# Anemia patient states she has had chronic anemia. It is macrocytic. Will check a B12 folate. Ferritin will not be accurate in the setting of recent blood transfusion
Addendum entered and electronically signed by DESIREE Coyle 06/03/24 17:43:
will check follow up X ray in AM to make sure stool clearing and not adding with decreased appetite symptoms.
Original Note:
Consultation
-
Date/Time Consultation Requested: 06/03/24 1500
Date/Time Consultation Performed: 06/03/24 1600
Requesting Provider: DESIREE Escalante
Performing Provider: DESIREE Arellano, Zeenat Bustos DO
Reason for Consultation: abnormal MRCP
Medical History
Chief Complaint / HPI
Chief Complaint: weakness, decreased appetite
History of Present Illness:
78-year-old female with past medical history of diabetes, CKD, degenerative disc disease, lumbar stenosis, hypertension, hyperlipidemia, recurrent UTIs presents to [facility] initially from [facility] for choledocholithiasis
and need for ERCP in April with onset of epigastric abdominal pain with nausea and vomiting with chills, tachycardia with noted mild leukocytosis, elevated lactate. Ultrasound was performed that showed liver 16.9 cm in length. Normal
echogenicity. No mass. There is intrahepatic and extrahepatic biliary dilatation. Gallbladder numerous gallstones present. Negative Plunkett sign. CBD 12 mm. Choledocholithiasis present. Pancreas no mass or ductal dilatation. Right kidney 9.6
cm. No hydronephrosis, suspicious mass or calculus. Multiple renal cyst present. CT abdomen and pelvis with contrast showed severe choledocholithiasis. Intrahepatic and extrahepatic biliary dilatation. Gallstone present. Mild gallbladder wall
thickening present. She complete ERCP 04/29/[address] Squires with multiple filling defects c/w stones with CBD dilation. Choledocholithiasis with stone removal with sphincterotomy and balloon extraction. Biliary tree with swept and pus and sludge
found. She was doing better post procedure.
Pt proceeding to lap jerome on 05/23. She now noted with post -op jaundice, decreased appetite. lethargy and weakness. On admission noted with WBC 11,2000, hbg 8.5 (baseline hbg 7-9 in admits), platelets 235, improving LFT's
from prior admission but still persistent elevated bili 3 (prior up to 5.2 on April) with direct 1.8. AST 69, ALT 37 alk phos 90. Work up per surgery to eval for bile leak and retained stone. HIDA No scintigraphic evidence of common bile duct
obstruction. No evidence to suggest bile leak. Findings consistent with reflux accumulation of intraluminal radiotracer within the duodenal bulb. CTA with severe constipation small collection in GB fossa, pneumobilia, enlarged right lobe of liver,
moderate to severe pancreatic lipoatosis, moderate portacaval lymphadenopathy mild bladder distention and spinal changes. Follow up MRI with Subtle extrinsic compression along the left lateral margin of the distal common bile duct lumen. Possibly
related to wall thickening which may be inflammatory or neoplastic. There is also suggestion of a 4.4 mm prevascular nodule adjacent pancreatic head, possibly associated with a vessel, raising possibility of microaneurysm. A small neoplasm, such as
neuroendocrine tumor may also be considered.Diffuse atrophy with fatty replacement. Numerous tiny cystic structures. Nonspecific. May be related to chronic pancreatitis, with side branches distention, versus small branch type intraductal papillary
mucinous neoplasm. No main pancreatic ductal dilatation. No acute pancreatitis.
At this time patient admits to stools since admission and improved constipation but continued with weakness. She admits to 12 lbs wt loss since jerome and diminished appetite. Pt denies dark urine, freire stools, nausea, vomiting, abdominal pain,
dysphagia, diarrhea, blood or black in stools. hx virtual colonoscopy 10 years ago.
Past Medical History
Past Medical History: HTN, Hypercholesterolemia, Renal Failure (CKD) and Other (Diabetes, degenerative disc disease, lumbar stenosis, recurrent UTIs)
Past Surgical History: Cholecystectomy (05/23), , Gynecological (Tubal ligation), Orthopedic (Left carpal tunnel release) and Other (Cataract, s/p ERCP with stone extraction/with pus/sludge 04/29 )
Social History
Tobacco: Non-Smoker
Alcohol: None
Drug: None
Personal:
Living: With Family
Family History
Family History: Other (No family history of gastrointestinal malignancy or IBD)
Allergies / Home Medications
Allergy/AdvReac Type Severity Reaction Status Date / Time
No Known Allergies Allergy Verified 06/01/24 16:23
�Medication �Instructions �Recorded
carvedilol 3.125 mg tablet (Coreg) 3.125 mg PO BID 04/29/24
cholecalciferol (vitamin D3) 25 25 mcg PO MOWEFR 04/29/24
mcg (1,000 unit) tablet (Vitamin
D3)
cyanocobalamin (vitamin B-12) 1,000 mcg PO MOWEFR 04/29/24
1,000 mcg tablet
denosumab 60 mg/mL subcutaneous 60 mg SC [id number] 04/29/24
syringe (Prolia)
fenofibrate nanocrystallized 48 mg 48 mg PO DAILY 04/29/24
tablet (Tricor)
metformin 500 mg tablet,extended 1,000 mg PO BID 04/29/24
release 24hr (osmotic)
rosuvastatin 10 mg tablet (Crestor) 10 mg PO DAILY 04/29/24
acetaminophen 650 mg 1,300 mg PO [id number] PRN mild pain 04/30/24
tablet,extended release
amlodipine 10 mg-valsartan 160 mg 0.5 tab PO DAILY 04/30/24
tablet
estradiol 0.01% (0.1 mg/gram) 1 g vaginal HS 04/30/24
vaginal cream (Estrace)
primidone 50 mg tablet 100 mg PO HS 04/30/24
aspirin 81 mg chewable tablet 81 mg PO DAILY #30 tabs 05/01/24
tramadol 50 mg tablet 25 - 50 mg (0.5 - 1 x 50 mg) PO 05/24/24
Q6HPRN PRN severe
pain/breakthrough pain #7 tabs
wprfwxxqbu-hyhsdtgueo-jpve 1 applic topical QID 06/01/24
vera-vits A,D,and E 20 %-3 %
topical cream (Vagisil)
fluconazole 150 mg tablet 150 mg PO Q72H 06/01/24
lidocaine-prilocaine 2.5 %-2.5 % 1 applic topical TIDPRN PRN 06/01/24
topical cream vaginal pain
polyethylene glycol 3350 17 4 g PO DAILYPRN PRN Constipation 06/01/24
gram/dose oral powder (Miralax)
Review of Systems
-
History Source: Patient and Family
Constitutional: Reports Weight Loss, Fatigue and Other (change in skin color )
EENT: Reports No Symptoms
Respiratory: Reports No Symptoms
Cardiac: Reports No Symptoms
Abdomen/GI: Reports Nausea (prior to ERCP now improved ) and Constipated
: Reports No Symptoms
Musculoskeletal: Reports No Symptoms
Skin: Reports No Symptoms
Neurological: Reports Weakness
Endocrine: Reports No Symptoms
Hematologic/Lymphatic: Reports No Symptoms
Vital Signs
Temp Pulse Resp BP Pulse Ox
98.2 F 88 18 123/56 96
06/03/24 16:03 06/03/24 16:03 06/03/24 16:03 06/03/24 16:03 06/03/24 16:03
Physical Exam
Exam
General: Other (pale appearing )
HEENT: Normocephalic and Other (minimal jaundice )
Respiratory: Clear
Cardiac: Regular Rhythm
GI: Soft, Non Tender, Non Distended and Other (post jreome sites intact )
Musculoskeletal: No Clubbing and No Cyanosis
Skin: Warm and Dry
Neuro: Awake, Alert and AO x 3
Psych: Calm
Results
WBC 11.2 10^3/uL (4.8-10.8) H 06/03/24 07:34
Hgb 8.5 g/dL (12.0-16.0) L 06/03/24 07:34
Hct 25.1 % (37.0-47.0) L 06/03/24 07:34
MCV 102.9 fL (81.0-99.0) H 06/03/24 07:34
Plt Count 235 10^3/uL (130-400) 06/03/24 07:34
Absolute Neuts (auto) 9.0 10^3/uL (1.4-6.5) H 06/01/24 17:36
Sodium 138 mmol/L (135-145) 06/03/24 07:34
Potassium 4.4 mmol/L (3.5-5.1) 06/03/24 07:34
Chloride 103 mmol/L (98-107) 06/03/24 07:34
Carbon Dioxide 25 mmol/L (22-30) 06/03/24 07:34
BUN 47 mg/dl (7-17) H 06/03/24 07:34
Creatinine 1.4 mg/dL (0.6-1.0) H 06/03/24 07:34
Calcium 9.3 mg/dl (8.4-10.2) 06/03/24 07:34
Total Bilirubin 3.0 mg/dl (0.2-1.3) H 06/03/24 07:34
AST 69 U/L (14-36) H 06/03/24 07:34
ALT 37 U/L (0-35) H 06/03/24 07:34
Alkaline Phosphatase 90 U/L (38-126) 06/03/24 07:34
Lipase 276 U/L (23-300) 06/01/24 17:36
Diagnostic Image Results:
Prior GI Procedures:
Colonoscopy: hx virtual colon 10 years ago
04/29/24 ERCP peg Squires MD - Multiple filling defects consistent with stones were
seen on the cholangiogram.
- The entire main bile duct was mildly dilated.
- Choledocholithiases were found. Complete removal was
accomplished by biliary sphincterotomy and balloon
extraction.
- A biliary sphincterotomy was performed.
- Major papilla was successfully dilated.
- The biliary tree was swept and pus and sludge were
found.
06/01/24 CTA
CHEST CTA:
1. Severe calcific atherosclerotic plaque in the coronary arteries.
2. Mild cardiomegaly.
3. Mild inflammatory interstitial pneumonitis in the basilar segments of the lower lobes.
ABDOMEN and PELVIS:
1. Large amount of fecal material throughout the proximal colon suggesting SEVERE CONSTIPATION.
2. Small 5.8 cm tubular-shaped fluid collection in the gallbladder fossa adjacent to cholecystectomy surgical clips without surrounding inflammation.
3. Moderate pneumobilia consistent with previous biliary sphincterotomy.
4. Mild enlargement of the right lobe of the liver.
5. Moderate to severe pancreatic lipomatosis.
6. Moderate portacaval lymphadenopathy.
7. Mild to moderate chronic bilateral renal disease.
8. Severe calcific atherosclerotic plaque in the abdominal aorta and femoral arteries.
9. Previous hysterectomy.
10. Mild distention of the urinary bladder.
11. Severe multilevel discogenic degenerative disease and facet joint arthrosis in the lumbar spine.
12. Severe superior and inferior endplate fractures of L1 with near complete vertebral body collapse and retropulsion of the posterior cortex into the anterior epidural space.
06/02/24 HIDA No scintigraphic evidence of common bile duct obstruction. No evidence to suggest bile leak.
06/03 CXR
1. Hazy bibasilar opacities, left greater than right, which may represent pneumonia or subsegmental atelectasis.
2. Mild interstitial prominence, which may be related to mild pulmonary vascular congestion or interstitial pneumonitis.
06/03/24 MRI with and without contrast
Heterogeneous signal in the gallbladder fossa, as described. Most consistent with postsurgical reactive soft tissue changes. The differential may include microabscess formation, though felt to be less likely given the absence of significant adjacent
inflammatory changes.
No ascites.
Subtle extrinsic compression along the left lateral margin of the distal common bile duct lumen. Possibly related to wall thickening which may be inflammatory or neoplastic. There is also suggestion of a 4.4 mm prevascular nodule adjacent pancreatic
head, possibly associated with a vessel, raising possibility of microaneurysm. A small neoplasm, such as neuroendocrine tumor may also be considered.
Diffuse atrophy with fatty replacement. Numerous tiny cystic structures. Nonspecific. May be related to chronic pancreatitis, with side branches distention, versus small branch type intraductal papillary mucinous neoplasm. No main pancreatic ductal
dilatation. No acute pancreatitis.
Assessment / Plan
-
78-year-old female with past medical history of diabetes, CKD, degenerative disc disease, lumbar stenosis, hypertension, hyperlipidemia, recurrent UTIs with admission to in April for urgent ERCP with noted choledocholithiasis. She completed
jerome in May after cards clearance with some troponin increase and now returns with severe weakness and decreased appetite. She is noted with improving LFT's. HIDA no bile leak or obstruction. CTA with severe constipation, small collection
in GB fossa and MRI with post surgical changes Subtle extrinsic compression along the left lateral margin of the distal common bile duct lumen. Possibly related to wall thickening which may be inflammatory or neoplastic. There is also suggestion of
a 4.4 mm prevascular nodule adjacent pancreatic head, possibly associated with a vessel, raising possibility of microaneurysm. A small neoplasm, such as neuroendocrine tumor may also be considered. there was also change of possible chronic
pancreatitis vs small IPMN no duct dilation. On daily ASA no other NSAIDS
-weakness
-decreased appetite
-severe constipation
-s/p ERCP 04/29 for choledocholithiasis
-s/p jerome 05/23
-abnormal MRI with Subtle extrinsic compression along the left lateral margin of the distal common bile duct lumen.
-MRI with change of possible chronic pancreatitis vs small IPMN no duct dilation.
-anemia
other med problems:
-DM
-CKD
-DJD
-lumbar stenosis
-HTN
-hyperlipidemia
-hx UTI's
PLAN:
Etiology of symptoms unclear -- constipation related vs related to finding on MRI vs other
will review MRI with Dr. Bustos and need For EUS
LFT stable with some elevated bili 3 but improved from prior admission
monitor diet tolerance
pt reports multiple stools cont Miralax daily with constipation noted on imaging
trend hbg with anemia s/p transfusion
-
-
Thank you for consultation and allowing me to participate in the patient's care. Please call the [facility] GI physician during the after hours with any questions or concerns.
[2024-06-03] MEDS: ZOSYN IV (16:31)
[2024-06-03] MEDS: LOVENOX 40 MG SC (17:12)
[2024-06-03] MEDS: UNASYN IV (17:12)
[2024-06-03 17:15] LABS: Glucose - Point of Care 151 mg/dl (70-99)
[2024-06-03] MEDS: NOVOLOG FLEXPEN 5 UNITS SC (17:19)
[2024-06-03] MEDS: NOVOLOG FLEXPEN-LOW RESISTANCE 1 UNITS SC (17:19)
[2024-06-03] MEDS: VIBRAMYCIN 100 MG PO (20:59)
[2024-06-03] MEDS: MYSOLINE 100 MG PO (20:59)
[2024-06-03 21:21] LABS: Glucose - Point of Care 204 mg/dl (70-99)
[2024-06-03 23:00] VITALS: BP 102/41
[2024-06-04] MEDS: UNASYN IV ×2 (05:12→17:53)
[2024-06-04 06:37] LABS: Hematocrit 23.4 % (37.0-47.0); Hemoglobin 7.7 g/dL (12.0-16.0); Mean Corp Hgb Conc. 32.9 g/dL (33.0-37.0); Mean Corpuscular Hgb 34.1 pg (27.0-31.0); Mean Corpuscular Volume 103.5 fL (81.0-99.0); Mean Platelet Volume 10.4 fL (7.4-10.4); Platelet Count 246 10^3/uL (130-400); Red Blood Cell Count 2.26 10^6/uL (4.20-5.40); Red Cell Dist. Width 20.4 % (11.5-14.5); White Blood Cell Count 13.6 10^3/uL (4.8-10.8)
[2024-06-04 07:01] LABS: ALT (SGPT) 34 U/L (0-35); AST (SGOT) 51 U/L (14-36); Albumin 3.3 g/dl (3.5-5.0); Alkaline Phosphatase 94 U/L (38-126); Blood Urea Nitrogen 52 mg/dl (7-17); Calcium 8.9 mg/dl (8.4-10.2); Carbon Dioxide 21 mmol/L (22-30); Chloride 104 mmol/L (98-107); Direct Bilirubin 1.9 mg/dl (0.0-0.4); Estimated Creatinine Clearance 29 ml/min; Glucose 198 mg/dl (70-99); Potassium 4.4 mmol/L (3.5-5.1); Sodium 139 mmol/L (135-145); Total Bilirubin 2.9 mg/dl (0.2-1.3); Total Protein 5.9 g/dl (6.3-8.2); eGFR 38.03
[2024-06-04 07:05] LABS: Procalcitonin 1.29 ng/ml (0.0-0.25)
[2024-06-04 07:18] LABS: Glucose - Point of Care 240 mg/dl (70-99)
[2024-06-04 07:40] VITALS: BP 134/61
[2024-06-04] MEDS: DUONEB 3 ML INH ×4 (08:00→19:48)
[2024-06-04 08:07] LABS: Folate 6.2 ng/ml (2.76-20); Vitamin B12 761 pg/ml (239-931)
[2024-06-04] MEDS: NOVOLOG FLEXPEN 5 UNITS SC ×2 (08:46→12:21)
[2024-06-04] MEDS: LANTUS 0.1 UNITS SC (08:46)
[2024-06-04] MEDS: NOVOLOG FLEXPEN-LOW RESISTANCE 2 UNITS SC (08:47)
[2024-06-04] MEDS: LOW STRENGTH ASPIRIN 81 MG PO (08:50)
[2024-06-04] MEDS: DIOVAN 160 MG PO (08:50)
[2024-06-04] MEDS: CRESTOR 10 MG PO (08:50)
[2024-06-04] MEDS: MIRALAX PO ×2 (08:51→09:00)
[2024-06-04] MEDS: GLUCOPHAGE 500 MG PO ×2 (08:52→17:50)
[2024-06-04] MEDS: COREG 3.125 MG PO ×2 (08:52→20:49)
[2024-06-04] MEDS: VIBRAMYCIN 100 MG PO ×2 (08:52→20:49)
[2024-06-04] MEDS: TRICOR 48 MG PO (08:52)
--- NOTE | 2024-06-04 09:08 | W.PN.GI.CBS2 ---
Today's Communication / Plan
-
-- monitor labs/BM/consider unit of blood
Assessment / Plan
-
78-year-old female with past medical history of diabetes, CKD, degenerative disc disease, lumbar stenosis, hypertension, hyperlipidemia, recurrent UTIs with admission to in April for urgent ERCP with noted choledocholithiasis. She completed
jerome in May after cards clearance with some troponin increase and now returns with severe weakness and decreased appetite. She is noted with improving LFT's. HIDA no bile leak or obstruction. CTA with severe constipation, small collection
in GB fossa and MRI with post surgical changes Subtle extrinsic compression along the left lateral margin of the distal common bile duct lumen. Possibly related to wall thickening which may be inflammatory or neoplastic. There is also suggestion of
a 4.4 mm prevascular nodule adjacent pancreatic head, possibly associated with a vessel, raising possibility of microaneurysm. A small neoplasm, such as neuroendocrine tumor may also be considered. there was also change of possible chronic
pancreatitis vs small IPMN no duct dilation. On daily ASA no other NSAIDS
-weakness
-decreased appetite
-severe constipation
-s/p ERCP 04/29 for choledocholithiasis
-s/p jerome 05/23
-abnormal MRI with Subtle extrinsic compression along the left lateral margin of the distal common bile duct lumen.
-MRI with change of possible chronic pancreatitis vs small IPMN no duct dilation.
-anemia
other med problems:
-DM
-CKD
-DJD
-lumbar stenosis
-HTN
-hyperlipidemia
-hx UTI's
PLAN:
06/04/24:
-- worsening leukocytosis, new o2 requirement, elevated procalcitonin, questionable microabscess formation - on antibiotics (however, no significant inflammatory changes surrounding) - no culture data???
-- s/p 1U PRBC 06/02/24
-- macrocytic anemia with hgb 7-9s,total 7.7, no overt bleeding, +CKD
-- b12 normal 761, folate 6.2, couldn't check ferritin after transfusion
-- constipation - going well and abdomen soft and NT - xray was ordered this morning (per RN - primary team considering chest xray)
-- persistent but improving total bili/direct/ALT now normalized, normal alk phos
-- collection on imaging and abnormal MRI - subtle extrinsic compression of the lumen along the lateral aspect of the distal common bile duct with mild short segment luminal narrowing. -EUS timing to be determined -patient has no pain however has
persistent elevated bili which is slowly trending down since her last admission
--Pancreas has numerous tiny cystic structures in the head body and tail none which have concerning features on imaging and the main pancreatic duct is normal with no acute inflammatory changes.
Subjective
Subjective
Date of Service: June 04, 2024
move bowels this morning - no overt blood, soft brown formed
Objective
Data Reviewed
Laboratory Data:
Laboratory Results
06/04/24 06:18
06/04/24 06:18
Laboratory Results
Total Bilirubin 2.9 mg/dl (0.2-1.3) H 06/04/24 06:18
AST 51 U/L (14-36) H 06/04/24 06:18
ALT 34 U/L (0-35) 06/04/24 06:18
Alkaline Phosphatase 94 U/L (38-126) 06/04/24 06:18
Lipase 276 U/L (23-300) 06/01/24 17:36
Vital Signs and I&O:
Vital Signs
Temp Pulse Resp BP Pulse Ox
98.5 F 103 16 102/41 92
06/03/24 23:00 06/04/24 08:04 06/04/24 08:04 06/03/24 23:00 06/04/24 09:00
I&O
06/03/24 06/04/24 06/05/24
06:59 06:59 06:59
Intake Total 570 / 570
Balance 570 / 570
Physical Exam
Physical Exam
HEENT: Anicteric (pale)
GI: Soft, Non Distended and Non Tender
Extremities: No Edema
Neuro: Non Focal
[2024-06-04 11:10] LABS: NT-proBNP 1020 pg/ml
[2024-06-04 11:22] LABS: B.E. -4.4 mmol/L; HCO3 19.5 mmol/L (21-28); O2 Saturation % 96.8 % (94-98); PCO2 30 mmHg (32-35); PO2 114 mmHg (83-108); pH 7.42 (7.35-7.45)
[2024-06-04 11:31] VITALS: BP 132/55
--- NOTE | 2024-06-04 11:38 | FALL ---
Description of Fall:
At 1125 pt had an unwitnessed fall. Pt was found on the floor laying on her back. Pt admitted hitting her head to the metal frame of the laundry bin. VSS, see documentation. Pt was sitting on the commode and had a call kellogg in reach, but decided not
to call for help this time. Pt assisted back to bed.
Injuries Noted:
No injuries noted.
Action Taken:
Dr Razo notified. Will order CT head. Will come assess pt. Nursing decorating supervisor notified. Bed alarm placed under the pt, fall risk band placed on the wrist. Call kellogg in reach.
Name of Provider Notified: Dr Dung Nelson.
[2024-06-04 11:58] LABS: Glucose - Point of Care 391 mg/dl (70-99)
[2024-06-04] MEDS: DIFLUCAN 150 MG PO (12:21)
[2024-06-04] MEDS: NOVOLOG FLEXPEN-LOW RESISTANCE 5 UNITS SC (12:21)
[2024-06-04 12:27] LABS: Glucose - Point of Care 345 mg/dl (70-99)
--- NOTE | 2024-06-04 15:09 | CM ---
Patient seen bedside with , discussed PT recommendations of VN vs SNF. Patient and provided with list of facilities local to [facility] as requested by . Patient and uncertain of rehab versus home therapy at this
time. CM will continue to follow for all discharge planning needs.
Plan; home with VN vs SNF, family uncertain, provided with list of SNF.
--- NOTE | 2024-06-04 15:16 | W.PN.HOSP.TC ---
Today's Communication/Plan
-
see note
Assessment / Plan
Assessment / Plan
CHEST CTA:
1. Severe calcific atherosclerotic plaque in the coronary arteries.
2. Mild cardiomegaly.
3. Mild inflammatory interstitial pneumonitis in the basilar segments of the lower lobes.
ABDOMEN and PELVIS:
1. Large amount of fecal material throughout the proximal colon suggesting SEVERE CONSTIPATION.
2. Small 5.8 cm tubular-shaped fluid collection in the gallbladder fossa adjacent to cholecystectomy surgical clips without surrounding inflammation.
3. Moderate pneumobilia consistent with previous biliary sphincterotomy.
4. Mild enlargement of the right lobe of the liver.
5. Moderate to severe pancreatic lipomatosis.
6. Moderate portacaval lymphadenopathy.
7. Mild to moderate chronic bilateral renal disease.
8. Severe calcific atherosclerotic plaque in the abdominal aorta and femoral arteries.
9. Previous hysterectomy.
10. Mild distention of the urinary bladder.
11. Severe multilevel discogenic degenerative disease and facet joint arthrosis in the lumbar spine.
12. Severe superior and inferior endplate fractures of L1 with near complete vertebral body collapse and retropulsion of the posterior cortex into the anterior epidural space.
HIDA
No scintigraphic evidence of common bile duct obstruction. No evidence to suggest bile leak. Findings consistent with reflux accumulation of intraluminal radiotracer within the duodenal bulb.
MRI abd
Heterogeneous signal in the gallbladder fossa, as described. Most consistent with postsurgical reactive soft tissue changes. The differential may include microabscess formation, though felt to be less likely given the absence of significant adjacent
inflammatory changes.
No ascites.
Subtle extrinsic compression along the left lateral margin of the distal common bile duct lumen. Possibly related to wall thickening which may be inflammatory or neoplastic. There is also suggestion of a 4.4 mm prevascular nodule adjacent pancreatic
head, possibly associated with a vessel, raising possibility of microaneurysm. A small neoplasm, such as neuroendocrine tumor may also be considered.
Diffuse atrophy with fatty replacement. Numerous tiny cystic structures. Nonspecific. May be related to chronic pancreatitis, with side branches distention, versus small branch type intraductal papillary mucinous neoplasm. No main pancreatic ductal
dilatation. No acute pancreatitis.

1. Gallbladder fossa fluid collection
Elevated T doris
s/p lap cholecystectomy on 05/23
-Possible postoperative seroma versus infected fluid (clinically less likely )
-No significant abdominal pain/nausea
-Total bilirubin 3.1 with direct 1.8. ALT 31 AST 53 essentially normal at admission.
-Cover empirically for any cholangitis/infection with Zosyn for now
-General Surgery evaluated and HIDA did not show any blockage or bile leakage
-MRI abd report as above. Atypical finding of questionable pancreatic head nodule/CBD compression? Gi evaluated and considering OP EUS
2. Acute hypoxic resp insufficiency - Reoccuring
-CXR showing interstitial pneumonitis vs scarring
-CT chest PE neg, no significant parenchymal changes
-chest x-ray showing questionable interstitial pneumonitis versus pneumonia
-Adjust antibiotic to Unasyn and doxycycline
-Procal elevated to 1.28, ProbNP ~ 1k
-Patient again hypoxic today, ABG reviewed, provide again 1 dose of IV lasix 40mg
3. Post op anemia from blood loss
Chronic Macrocytic anemia
h/o of Vit B12 def
-Hemoglobin 7.1 at admission, s/p 1 unit of PRBC hbg 8.5 > 7.7
-Denies melena/blood in stool.
-B12/Folate WNL
4. CKDIIIA
-cr close to baseline, monitor
5. Type II DM - Uncontrolled
-A1c of 6.8
-increased lantus 15 U /increased premeal insulin to 8U AC
-GI recommended regular diet due to poor oral intake
6. Hyponatremia
-minimal, continue monitoring.
7. Generalized weakness
-PT OT evaluation
8. Candidal vulvovaginitis
-Whitish mucosal lesion on examination, complaining of itching
-Provided 1 dose of fluconazole 150 mg today
9. Fall
-Patient went to bathroom unassisted today and fell
-Ended up hitting head to side rail bathroom, CT head negative for acute abnormality
Essential hypertension
Lumbar spinal stenosis
History of mitral prolapse
history of
Full code
Total time spent : 53 mins
Anticipated Discharge: 24 - 48 hours
Subjective/Interval History
-
Date of Service: June 04, 2024
Patient again noted to be hypoxic at night, requiring oxygen to nasal cannula
No dyspnea
No abdominal pain/nausea/vomiting
Objective Data
-
Labs:
Laboratory Results
06/04/24 06/04/24
06:18 11:11
WBC 13.6 H
Hgb 7.7 L
Hct 23.4 L
Plt Count 246
HCO3 19.5 L
Sodium 139
Potassium 4.4
Chloride 104
Carbon Dioxide 21 L
BUN 52 H
Creatinine 1.4 H
Glucose 198 H
Calcium 8.9
Total Bilirubin 2.9 H
AST 51 H
ALT 34
Alkaline Phosphatase 94
Vital Signs:
Vital Signs
Temp Pulse Resp BP Pulse Ox
98.2 F 110 18 132/55 92
06/04/24 07:40 06/04/24 11:31 06/04/24 11:31 06/04/24 11:31 06/04/24 11:31
I&O
06/03/24 06/04/24 06/05/24
06:59 06:59 06:59
Intake Total 570 / 570
Balance 570 / 570
Review of Systems
-
Respiratory: Reports No Symptoms
Cardiac: Reports No Symptoms
Abdomen/GI: Reports No Symptoms
Physical Exam
-
General: No Apparent Distress and Comfortable
HEENT: Negative Oxygen
Respiratory: Crackles (minimal at lung base)
Cardiac: Regular Rhythm and S1/S2; Negative Murmur or Rub
GI: Soft, Nontender and Nondistended
Musculoskeletal: No Edema
Neuro: Awake, Alert, Oriented, No Motor Deficits and Nonfocal/Grossly Intact
Psych: Calm
[2024-06-04 15:30] VITALS: BP 130/55
[2024-06-04] MEDS: LASIX 40 MG IV (16:37)
[2024-06-04] MEDS: TYLENOL 650 MG PO ×2 (16:44→20:49)
[2024-06-04 17:25] LABS: Glucose - Point of Care 184 mg/dl (70-99)
[2024-06-04] MEDS: NOVOLOG FLEXPEN 8 UNITS SC (17:50)
[2024-06-04] MEDS: NOVOLOG FLEXPEN-LOW RESISTANCE 1 UNITS SC (17:50)
[2024-06-04] MEDS: LOVENOX 40 MG SC (17:53)
[2024-06-04] MEDS: LIDOCAINE 4% PATCH 1 PATCH TOPICAL (20:49)
[2024-06-04] MEDS: MYSOLINE 100 MG PO (20:49)
[2024-06-04 21:13] LABS: Glucose - Point of Care 257 mg/dl (70-99)
[2024-06-04 23:50] VITALS: BP 139/62
[2024-06-05] MEDS: UNASYN IV ×2 (05:29→17:06)
[2024-06-05 06:53] LABS: Hematocrit 22.6 % (37.0-47.0); Hemoglobin 7.2 g/dL (12.0-16.0); Mean Corp Hgb Conc. 31.9 g/dL (33.0-37.0); Mean Corpuscular Hgb 34.1 pg (27.0-31.0); Mean Corpuscular Volume 107.1 fL (81.0-99.0); Mean Platelet Volume 10.6 fL (7.4-10.4); Platelet Count 279 10^3/uL (130-400); Red Blood Cell Count 2.11 10^6/uL (4.20-5.40); Red Cell Dist. Width 20.4 % (11.5-14.5); White Blood Cell Count 11.6 10^3/uL (4.8-10.8)
[2024-06-05 07:04] LABS: Glucose - Point of Care 228 mg/dl (70-99)
[2024-06-05 07:34] LABS: ALT (SGPT) 31 U/L (0-35); AST (SGOT) 39 U/L (14-36); Albumin 3.4 g/dl (3.5-5.0); Alkaline Phosphatase 92 U/L (38-126); Blood Urea Nitrogen 52 mg/dl (7-17); Calcium 8.3 mg/dl (8.4-10.2); Carbon Dioxide 23 mmol/L (22-30); Chloride 103 mmol/L (98-107); Estimated Creatinine Clearance 25 ml/min; Glucose 192 mg/dl (70-99); Potassium 4.3 mmol/L (3.5-5.1); Sodium 138 mmol/L (135-145); Total Bilirubin 2.1 mg/dl (0.2-1.3); Total Protein 5.9 g/dl (6.3-8.2)
[2024-06-05 07:40] VITALS: BP 135/55
[2024-06-05] MEDS: DUONEB 3 ML INH ×3 (08:03→19:37)
[2024-06-05] MEDS: GLUCOPHAGE 500 MG PO (08:08)
[2024-06-05] MEDS: VIBRAMYCIN 100 MG PO ×2 (08:08→21:01)
[2024-06-05] MEDS: COREG 3.125 MG PO ×2 (08:08→21:01)
[2024-06-05] MEDS: MIRALAX 17 GRAMS PO (08:08)
[2024-06-05] MEDS: TRICOR 48 MG PO (08:08)
[2024-06-05] MEDS: DIOVAN 160 MG PO (08:08)
[2024-06-05] MEDS: LOW STRENGTH ASPIRIN 81 MG PO (08:08)
[2024-06-05] MEDS: CRESTOR 10 MG PO (08:08)
[2024-06-05] MEDS: LANTUS 0.15 UNITS SC (08:12)
[2024-06-05] MEDS: TYLENOL 650 MG PO (08:22)
[2024-06-05] MEDS: NOVOLOG FLEXPEN 4 UNITS SC ×2 (09:04→12:59)
[2024-06-05] MEDS: NOVOLOG FLEXPEN-LOW RESISTANCE 2 UNITS SC ×2 (09:05→12:59)
[2024-06-05 12:59] LABS: Glucose - Point of Care 252 mg/dl (70-99)
--- NOTE | 2024-06-05 13:13 | W.PN.HOSP.TC ---
Today's Communication/Plan
-
see note
Assessment / Plan
Assessment / Plan
CHEST CTA:
1. Severe calcific atherosclerotic plaque in the coronary arteries.
2. Mild cardiomegaly.
3. Mild inflammatory interstitial pneumonitis in the basilar segments of the lower lobes.
ABDOMEN and PELVIS:
1. Large amount of fecal material throughout the proximal colon suggesting SEVERE CONSTIPATION.
2. Small 5.8 cm tubular-shaped fluid collection in the gallbladder fossa adjacent to cholecystectomy surgical clips without surrounding inflammation.
3. Moderate pneumobilia consistent with previous biliary sphincterotomy.
4. Mild enlargement of the right lobe of the liver.
5. Moderate to severe pancreatic lipomatosis.
6. Moderate portacaval lymphadenopathy.
7. Mild to moderate chronic bilateral renal disease.
8. Severe calcific atherosclerotic plaque in the abdominal aorta and femoral arteries.
9. Previous hysterectomy.
10. Mild distention of the urinary bladder.
11. Severe multilevel discogenic degenerative disease and facet joint arthrosis in the lumbar spine.
12. Severe superior and inferior endplate fractures of L1 with near complete vertebral body collapse and retropulsion of the posterior cortex into the anterior epidural space.
HIDA
No scintigraphic evidence of common bile duct obstruction. No evidence to suggest bile leak. Findings consistent with reflux accumulation of intraluminal radiotracer within the duodenal bulb.
MRI abd
Heterogeneous signal in the gallbladder fossa, as described. Most consistent with postsurgical reactive soft tissue changes. The differential may include microabscess formation, though felt to be less likely given the absence of significant adjacent
inflammatory changes.
No ascites.
Subtle extrinsic compression along the left lateral margin of the distal common bile duct lumen. Possibly related to wall thickening which may be inflammatory or neoplastic. There is also suggestion of a 4.4 mm prevascular nodule adjacent pancreatic
head, possibly associated with a vessel, raising possibility of microaneurysm. A small neoplasm, such as neuroendocrine tumor may also be considered.
Diffuse atrophy with fatty replacement. Numerous tiny cystic structures. Nonspecific. May be related to chronic pancreatitis, with side branches distention, versus small branch type intraductal papillary mucinous neoplasm. No main pancreatic ductal
dilatation. No acute pancreatitis.

1. Gallbladder fossa fluid collection
Elevated T doris
s/p lap cholecystectomy on 05/23
-Possible postoperative seroma versus infected fluid (clinically less likely )
-No significant abdominal pain/nausea
-Total bilirubin 3.1 with direct 1.8. ALT 31 AST 53 essentially normal at admission.
-Cover empirically for any cholangitis/infection with Zosyn for now
-General Surgery evaluated and HIDA did not show any blockage or bile leakage
-MRI abd report as above. Atypical finding of questionable pancreatic head nodule/CBD compression? Gi evaluated and considering OP EUS
2. Acute hypoxic resp insufficiency - Re-occuring
-CXR showing interstitial pneumonitis vs scarring
-CT chest PE neg, no significant parenchymal changes
-chest x-ray showing questionable interstitial pneumonitis versus pneumonia
-Adjust antibiotic to Unasyn and doxycycline
-Procal elevated to 1.28, ProbNP ~ 1k. TTE in may 12 showing EGF 60-65% Grade I dysfunction
3. Post op anemia from blood loss
Chronic Macrocytic anemia
h/o of Vit B12 def
-Hemoglobin 7.1 at admission, s/p 1 unit of PRBC hbg 8.5 > 7.7
-Denies melena/blood in stool.
-B12/Folate WNL
-Check TSH/FT4, LDH, Retic count. Hematology evaluation requested
-Hbg again 7.2 today, will provide 1 u prbc
4. ALIREZA on CKDIIIA
-Creatinine trending up
-Hold Diovan
-Check post void residual
5. Type II DM - Uncontrolled
-A1c of 6.8
-increased lantus 15 U /increased premeal insulin to 8U AC
-GI recommended regular diet due to poor oral intake
6. Hyponatremia
-minimal, continue monitoring.
7. Generalized weakness
-PT OT evaluation
8. Candidal vulvovaginitis
-Whitish mucosal lesion on examination, complaining of itching
-Provided 1 dose of fluconazole 150 mg
9. Fall
-Patient went to bathroom unassisted today and fell
-Ended up hitting head to side rail bathroom, CT head negative for acute abnormality
Essential hypertension
Lumbar spinal stenosis
History of mitral prolapse
history of
Full code
Anticipated Discharge: Within 24 hours
Subjective/Interval History
-
Date of Service: June 05, 2024
Oxygenation better
Currently on 2 L oxygen through nasal cannula
afebrile in night
Objective Data
-
Labs:
Laboratory Results
06/05/24
06:22
WBC 11.6 H
Hgb 7.2 L
Hct 22.6 L
Plt Count 279
Sodium 138
Potassium 4.3
Chloride 103
Carbon Dioxide 23
BUN 52 H
Creatinine 1.6 H
Glucose 192 H
Calcium 8.3 L
Total Bilirubin 2.1 H
AST 39 H
ALT 31
Alkaline Phosphatase 92
Vital Signs:
Vital Signs
Temp Pulse Resp BP Pulse Ox
97.4 F 76 16 135/55 93
06/05/24 07:40 06/05/24 12:01 06/05/24 12:01 06/05/24 07:40 06/05/24 12:01
Review of Systems
-
Respiratory: Reports No Symptoms
Cardiac: Reports No Symptoms
Abdomen/GI: Reports No Symptoms
Physical Exam
-
General: No Apparent Distress and Comfortable
HEENT: Oxygen (2L NC)
Respiratory: Clear to Auscultation
Cardiac: Regular Rhythm and S1/S2; Negative Murmur or Rub
GI: Soft, Nontender and Nondistended
Musculoskeletal: No Edema
Neuro: Awake, Alert, Oriented, No Motor Deficits and Nonfocal/Grossly Intact
Psych: Calm
[2024-06-05 13:47] VITALS: BP 135/60
[2024-06-05 14:02] LABS: Reticulocyte Count 9.5 % (0.4-2.8)
[2024-06-05 14:06] VITALS: BP 116/51
[2024-06-05 14:12] LABS: LDH 572 U/L (120-246)
[2024-06-05 14:30] LABS: Free T4 1.58 ng/dl (0.78-2.19)
--- NOTE | 2024-06-05 14:31 | W.PN.GI.CBS2 ---
Today's Communication / Plan
-
MiraLAX prep
Discussed anemia with primary team and at bedside
Assessment / Plan
-
78-year-old female with past medical history of diabetes, CKD, degenerative disc disease, lumbar stenosis, hypertension, hyperlipidemia, recurrent UTIs with admission to in April for urgent ERCP with noted choledocholithiasis. She completed
jerome in May after cards clearance with some troponin increase and now returns with severe weakness and decreased appetite. She is noted with improving LFT's. HIDA no bile leak or obstruction. CTA with severe constipation, small collection
in GB fossa and MRI with post surgical changes Subtle extrinsic compression along the left lateral margin of the distal common bile duct lumen. Possibly related to wall thickening which may be inflammatory or neoplastic. There is also suggestion of
a 4.4 mm prevascular nodule adjacent pancreatic head, possibly associated with a vessel, raising possibility of microaneurysm. A small neoplasm, such as neuroendocrine tumor may also be considered. there was also change of possible chronic
pancreatitis vs small IPMN no duct dilation. On daily ASA no other NSAIDS
-weakness
-decreased appetite
-severe constipation
-s/p ERCP 04/29 for choledocholithiasis
-s/p jerome 05/23
-abnormal MRI with Subtle extrinsic compression along the left lateral margin of the distal common bile duct lumen.
-MRI with change of possible chronic pancreatitis vs small IPMN no duct dilation.
-anemia
other med problems:
-DM
-CKD
-DJD
-lumbar stenosis
-HTN
-hyperlipidemia
-hx UTI's
Transfusions:
1U 06/02
1U 06/05
PLAN:
06/04/24:
-- worsening leukocytosis, new o2 requirement, elevated procalcitonin, questionable microabscess formation - on antibiotics (however, no significant inflammatory changes surrounding) - no culture data???
-- s/p 1U PRBC 06/02/24
-- macrocytic anemia with hgb 7-9s,total 7.7, no overt bleeding, +CKD
-- b12 normal 761, folate 6.2, couldn't check ferritin after transfusion
-- constipation - going well and abdomen soft and NT - xray was ordered this morning (per RN - primary team considering chest xray)
-- persistent but improving total bili/direct/ALT now normalized, normal alk phos
-- collection on imaging and abnormal MRI - subtle extrinsic compression of the lumen along the lateral aspect of the distal common bile duct with mild short segment luminal narrowing. -EUS timing to be determined -patient has no pain however has
persistent elevated bili which is slowly trending down since her last admission
--Pancreas has numerous tiny cystic structures in the head body and tail none which have concerning features on imaging and the main pancreatic duct is normal with no acute inflammatory changes.
06/05/2024:
Pale and requiring another unit of blood; macrocytic, high RDW, elevated LDH, normal B12 - primary team called hematology, considering AIHA.
Yesterday hemoglobin 7.7 today 7.2, she is hemodynamically stable with no overt bleeding, yesterday stools have been brown
Slightly worsening renal function but still close to baseline
CR from 06/04/24 shows a very large amount of stool - progressed. (she's never had a colonoscopy)
Ordered Miralax prep and warned the patient and discussed with at bedside
Patient states she is too weak to undergo any types of procedures including the EUS -the EUS is not an emergency at this time
Subjective
Subjective
Date of Service: June 05, 2024
Patient feels weak. She is getting another unit of blood. Tells me she moves her bowels once a week normally
Objective
Data Reviewed
Laboratory Data:
Laboratory Results
06/05/24 06:22
06/05/24 06:22
Laboratory Results
Total Bilirubin 2.1 mg/dl (0.2-1.3) H 06/05/24 06:22
AST 39 U/L (14-36) H 06/05/24 06:22
ALT 31 U/L (0-35) 06/05/24 06:22
Alkaline Phosphatase 92 U/L (38-126) 06/05/24 06:22
Lipase 276 U/L (23-300) 06/01/24 17:36
Vital Signs and I&O:
Vital Signs
Temp Pulse Resp BP Pulse Ox
97.9 F 85 16 116/51 93
06/05/24 14:06 06/05/24 14:06 06/05/24 14:06 06/05/24 14:06 06/05/24 12:01
I&O
06/04/24 06/05/24 06/06/24
06:59 06:59 06:59
Intake Total 0 / 0
Balance 0 / 0
Physical Exam
Physical Exam
HEENT: Other (Pale)
GI: Soft, Non Distended, Non Tender and Normal Bowel Sounds
Extremities: No Edema
Neuro: Non Focal
[2024-06-05 14:44] LABS: TSH 8.08 uIU/ml (0.47-4.68)
[2024-06-05 15:30] VITALS: BP 134/63
[2024-06-05] MEDS: DUONEB INH (15:32)
[2024-06-05 16:23] VITALS: BP 148/69
[2024-06-05 16:39] LABS: Glucose - Point of Care 274 mg/dl (70-99)
[2024-06-05] MEDS: LOVENOX 30 MG SC (17:06)
[2024-06-05] MEDS: GAVILAX 238 GM PO (17:20)
--- NOTE | 2024-06-05 17:20 | PTCARENOTE ---
Pt received one unit of PRBCs. Pt tolerated transfusion well.
[2024-06-05] MEDS: NOVOLOG FLEXPEN 10 UNITS SC (18:05)
[2024-06-05] MEDS: NOVOLOG FLEXPEN-LOW RESISTANCE 3 UNITS SC (18:07)
[2024-06-05] MEDS: LIDOCAINE 4% PATCH 1 PATCH TOPICAL (21:01)
[2024-06-05] MEDS: MYSOLINE 100 MG PO (21:01)
[2024-06-05 21:11] LABS: Glucose - Point of Care 111 mg/dl (70-99)
[2024-06-05 23:30] VITALS: BP 148/68
[2024-06-06] MEDS: TYLENOL 650 MG PO ×3 (04:16→17:39)
--- NOTE | 2024-06-06 05:57 | W.PN.UPDATE ---
Update Note
Progress Note Update
RN notified RESEARCH AND DEVELOPMENT SPECIALIST, Bladder scan done and noted 770 ml, she retained yesterday and was straight catheterized for 1100 CC. Will check UA to r/o UTI, and will place order for [facility] Catheterization.
--- NOTE | 2024-06-06 06:00 | PTCARENOTE ---
Patient with no urine output despite multiple attempts at toileting throughout the night. Patient was straight cath'd for 1100 during the previous day. GLAUCOMA SPECIALIST made aware of bladder scan and volumes. Order placed for UA with reflex to culture and
indwelling morrissey catheter. Morrissey placed with PCT, 750ml rj urine initially drained. Patient unhappy about catheter.
[2024-06-06] MEDS: UNASYN IV ×2 (06:14→18:29)
[2024-06-06 07:07] VITALS: BP 140/66
[2024-06-06 07:11] LABS: Urine Albumin Trace (Neg - Trace); Urine Bilirubin 1+ (Negative); Urine Character Clear (Clear); Urine Color Amber; Urine Glucose Negative (Negative); Urine Ketone Negative (Negative); Urine Leukocyte Trace (Negative); Urine Nitrite Negative (Negative); Urine Occult Blood Negative (Negative); Urine Urobilinogen Negative (Neg - 1+)
[2024-06-06] MEDS: EMLA CREAM 1 GRAM TOPICAL ×2 (07:37→17:39)
[2024-06-06] MEDS: LIDOCAINE 4% PATCH 1 PATCH TOPICAL (07:38)
[2024-06-06] MEDS: LOW STRENGTH ASPIRIN 81 MG PO (07:39)
[2024-06-06] MEDS: CRESTOR 10 MG PO (07:39)
[2024-06-06] MEDS: MIRALAX 17 GRAMS PO (07:39)
[2024-06-06] MEDS: VIBRAMYCIN 100 MG PO ×2 (07:39→22:01)
[2024-06-06] MEDS: TRICOR 48 MG PO (07:40)
[2024-06-06] MEDS: COREG 3.125 MG PO ×2 (07:40→22:02)
[2024-06-06] MEDS: DUONEB 3 ML INH ×4 (07:45→21:34)
[2024-06-06 08:05] LABS: Urine Bacteria Few (Negative); Urine Red Blood Cell 0-2 /HPF (0-2); Urine Squamous Cell 0-2 /LPF (Few)
[2024-06-06 08:13] LABS: Glucose - Point of Care 146 mg/dl (70-99)
[2024-06-06] MEDS: NOVOLOG FLEXPEN-LOW RESISTANCE SC ×2 (08:33→18:17)
[2024-06-06] MEDS: NOVOLOG FLEXPEN 10 UNITS SC ×3 (08:34→18:17)
[2024-06-06] MEDS: LANTUS 0.15 UNITS SC (08:36)
[2024-06-06 08:55] LABS: Hematocrit 26.8 % (37.0-47.0); Hemoglobin 8.6 g/dL (12.0-16.0); Mean Corp Hgb Conc. 32.1 g/dL (33.0-37.0); Mean Corpuscular Hgb 33.2 pg (27.0-31.0); Mean Corpuscular Volume 103.5 fL (81.0-99.0); Mean Platelet Volume 10.3 fL (7.4-10.4); Platelet Count 299 10^3/uL (130-400); Red Blood Cell Count 2.59 10^6/uL (4.20-5.40); White Blood Cell Count 9.9 10^3/uL (4.8-10.8)
--- NOTE | 2024-06-06 09:48 | PN.CDI ---
CDI
- -
CDI:
Physician Documentation Request
Admit Date: 06/01/24 22:19
Dear Doctor Dung,
Please review the following and provide your response in the progress notes.
Clinical Indicators:
The diagnosis of Pulmonary Vascular congestion was included in the signed CXR 06/03.
Additional clinical indicators in the chart include:
06/03 CXR: 'Mild interstitial prominence, which may be related to mild pulmonary vascular congestion or interstitial pneumonitis.'
Progress note 06/04,'-Procal elevated to 1.28, ProbNP ~ 1k
-Patient again hypoxic today, ABG reviewed, provide again 1 dose of IV lasix 40mg..'
Progress note 06/05, ' -Procal elevated to 1.28, ProbNP ~ 1k. TTE in may 12 showing EGF 60-65% Grade I dysfunction...'
Per MAR pt did get IV Lasix 40 mg on 05/23 & 06/04.
Please provide a diagnosis for the above findings and IV Lasix use:
Acute noncardiogenic pulmonary edema
Acute Diastolic CHF
Other (please specify)
Use of terms such as suspected, likely, concern for, or probable are acceptable for a diagnosis that is being evaluated, monitored or treated as if it exists and can be coded in the inpatient setting, when documented at the time of discharge.
Thank you,
Maria C Berry RN
CDI Specialist
[facility]
Please use your independent medical judgment in providing your response.
[2024-06-06 09:50] LABS: Blood Urea Nitrogen 47 mg/dl (7-17); Calcium 8.4 mg/dl (8.4-10.2); Carbon Dioxide 24 mmol/L (22-30); Chloride 106 mmol/L (98-107); Estimated Creatinine Clearance 31 ml/min; Glucose 163 mg/dl (70-99); Potassium 4.4 mmol/L (3.5-5.1); Sodium 140 mmol/L (135-145); eGFR 41.57
--- NOTE | 2024-06-06 10:59 | W.PN.GI.CBS2 ---
Addendum entered and electronically signed by Zeenat Bustos DO 06/06/24 14:49:
Patient seen examined independently of DESIREE. I agree with her note with additions below
Patient was seen by hematology, Dr. Britton for workup for hemolysis. It appears this is unlikely an autoimmune hemolytic anemia based on blood work. She has been heme-negative 3 times now. Is a macrocytic anemia.
Will continue to follow with hematology. No endoscopic examination necessary nor does the patient want it at this time.
Continue bowel regimen to help her move her bowels more than once a week. The x-ray from today does look improved.
Okay to start MiraLAX and will give 2 senna at night to help with more predictable bowel movements.
She should follow-up as an outpatient to discuss EUS since she does not want undergo it anytime soon.
GI will sign off. Please call back if we can be of any service inpatient.
Addendum entered and electronically signed by DESIREE Coyle 06/06/24 11:24:
reviewed with Dr. Britton for work up for hemolysis for anemia with cont LFT elevation
Original Note:
Today's Communication / Plan
-
+ frequent stool after Miralax prep solid and liquid and still some leakage today
will check follow up X ray to confirm clearing of stool
pt also with urinary retention and ? yeast infection
diet issues may be constipation and urinary retention related
some increased diet intakes cont to monitor
stool on my exam brown heme neg no impaction-- for heme eval with continue macrocytic anemia
consider eventual EUS with abnormal MRI imaging
Assessment / Plan
-
78-year-old female with past medical history of diabetes, CKD, degenerative disc disease, lumbar stenosis, hypertension, hyperlipidemia, recurrent UTIs with admission to in April for urgent ERCP with noted choledocholithiasis. She completed
jerome in May after cards clearance with some troponin increase and now returns with severe weakness and decreased appetite. She is noted with improving LFT's. HIDA no bile leak or obstruction. CTA with severe constipation, small collection
in GB fossa and MRI with post surgical changes Subtle extrinsic compression along the left lateral margin of the distal common bile duct lumen. Possibly related to wall thickening which may be inflammatory or neoplastic. There is also suggestion of
a 4.4 mm prevascular nodule adjacent pancreatic head, possibly associated with a vessel, raising possibility of microaneurysm. A small neoplasm, such as neuroendocrine tumor may also be considered. there was also change of possible chronic
pancreatitis vs small IPMN no duct dilation. On daily ASA no other NSAIDS. follow up abd film 06/04 with increased stool burden.
-weakness
-decreased appetite
-severe constipation
-urinary retention
-hypoxemia requiring O2
-s/p ERCP 04/29 for choledocholithiasis
-s/p jerome 05/23
-abnormal MRI with Subtle extrinsic compression along the left lateral margin of the distal common bile duct lumen.
-MRI with change of possible chronic pancreatitis vs small IPMN no duct dilation.
-anemia -- heme neg
other med problems:
-DM
-CKD
-DJD
-lumbar stenosis
-HTN
-hyperlipidemia
-hx UTI's
Transfusions:
1U 06/02
1U 06/05
PLAN:
06/04/24:
-- worsening leukocytosis, new o2 requirement, elevated procalcitonin, questionable microabscess formation - on antibiotics (however, no significant inflammatory changes surrounding) - no culture data???
-- s/p 1U PRBC 06/02/24
-- macrocytic anemia with hgb 7-9s,total 7.7, no overt bleeding, +CKD
-- b12 normal 761, folate 6.2, couldn't check ferritin after transfusion
-- constipation - going well and abdomen soft and NT - xray was ordered this morning (per RN - primary team considering chest xray)
-- persistent but improving total bili/direct/ALT now normalized, normal alk phos
-- collection on imaging and abnormal MRI - subtle extrinsic compression of the lumen along the lateral aspect of the distal common bile duct with mild short segment luminal narrowing. -EUS timing to be determined -patient has no pain however has
persistent elevated bili which is slowly trending down since her last admission
--Pancreas has numerous tiny cystic structures in the head body and tail none which have concerning features on imaging and the main pancreatic duct is normal with no acute inflammatory changes.
06/05/2024:
Pale and requiring another unit of blood; macrocytic, high RDW, elevated LDH, normal B12 - primary team called hematology, considering AIHA.
Yesterday hemoglobin 7.7 today 7.2, she is hemodynamically stable with no overt bleeding, yesterday stools have been brown
Slightly worsening renal function but still close to baseline
CR from 06/04/24 shows a very large amount of stool - progressed. (she's never had a colonoscopy)
Ordered Miralax prep and warned the patient and discussed with at bedside
Patient states she is too weak to undergo any types of procedures including the EUS -the EUS is not an emergency at this time
06/06/24 :
+ frequent stool after Miralax prep solid and liquid and still some leakage today
will check follow up X ray to confirm clearing of stool
pt also with urinary retention and ? yeast infection
diet issues may be constipation and urinary retention related
some increased diet intakes cont to monitor
stool on my exam brown heme neg no impaction -- for heme eval with continue macrocytic anemia
consider eventual EUS with abnormal MRI imaging
Subjective
Subjective
Date of Service: June 06, 2024
06/06 brown loose stools small amount frequent
Objective
Data Reviewed
Laboratory Data:
Laboratory Results
06/06/24 08:35
06/06/24 08:35
Laboratory Results
Total Bilirubin 2.1 mg/dl (0.2-1.3) H 06/05/24 06:22
AST 39 U/L (14-36) H 06/05/24 06:22
ALT 31 U/L (0-35) 06/05/24 06:22
Alkaline Phosphatase 92 U/L (38-126) 06/05/24 06:22
Lipase 276 U/L (23-300) 06/01/24 17:36
Vital Signs and I&O:
Vital Signs
Temp Pulse Resp BP Pulse Ox
98.6 F 79 16 140/66 98
06/06/24 07:07 06/06/24 07:47 06/06/24 07:47 06/06/24 07:07 06/06/24 07:47
I&O
06/05/24 06/06/24 06/07/24
06:59 06:59 06:59
Intake Total 1690 / 1690
Output Total 1350 / 1350
Balance 340 / 340
Physical Exam
Physical Exam
HEENT: Anicteric and Moist mucous membranes
Cardiology: Normal Sinus Rhythm
Pulmonary: Clear and Other (period of hypoxemia last PM)
GI: Soft, Distended and Non Tender
Rectal: Other (liquid brown heme neg )
Extremities: No Edema
Neuro: Non Focal
[2024-06-06] MEDS: LASIX 40 MG IV (11:15)
--- NOTE | 2024-06-06 11:29 | CON.ONC ---
Addendum entered and electronically signed by Ray Britton MD 06/06/24 14:34:
Review of echocardiogram shows:
'Mitral sclerosis with mild prolapse of the posterior leaflet associate with multiple jets of eccentric mitral regurgitation that is likely moderate'
I will defer to cardiology regarding this is a possible process. However, the presence of multiple jets raises the possibility of intravascular hemolysis.
Addendum entered and electronically signed by Ray Britton MD 06/06/24 14:28:
Personal examination of the peripheral smear does show some occasional schistocytes as well as cookie bite cells. There is a background macrocytosis. This is compatible with a nonimmune hemolytic process, although the precise etiology remains
obscure. Will check G6PD, although with transfuse blood on board the results may not be reliable.
Original Note:
Impression
Impression
Anemia, laboratories suggestive of hemolysis, direct Kemar negative
Variable mild jaundice, direct and indirect
Recent cholecystectomy
Plan
Plan
She has had a fairly good evaluation regarding the etiology of her anemia. The elevated LDH and reticulocyte count are suggestive of hemolysis, the direct Kemar is negative, excluding with reasonable certainty autoimmune etiology. None of her
medications seem to suspect, although there are old reports of primidone being associated with an induction of folic acid deficiency. This can be overridden by supplemental folic acid, I have started her on 1 mg daily. I will personally review her
peripheral smear. She can be transfused as clinically necessary.
Patient History
History of Present Illness
Consult from Dr. Razo regarding anemia
This 78-year-old woman was admitted with weakness and jaundice. She had recently undergone laparoscopic cholecystectomy, with cholangiogram, no stones were noted. She had previously undergone sphincterotomy. All CBCs available in the last few
weeks show her maximum hemoglobin to a been 9.4. The MCV has recently risen from normal up to 103. She has had a fairly good evaluation regarding her anemia, with remarkable values including a reticulocyte count of 9.5%, and an LDH twice normal.
Haptoglobin is pending. B12 and folate levels are normal. A direct Kemar test is negative. She demonstrates no evidence of GI bleeding.
Past-Medical/Surgical History
Past Medical History: Reports HTN, Hypercholesterolemia and NIDDM
Additional Past Medical History:
CKD
lumbar spinal stenosis
essential tremor
mitral prolapse
Past Surgical History: Reports Cholecystectomy, , Gynocological (tubal ligation) and Orthopedic (RT L2-L4 MBB)
Social History
Tobacco: Non-smoker
Alcohol: None
Drug: None
Personal:
Living: With Family
Employment: Retired
Family History
Family History: Not pertinent
Patient Medication
�Medication �Instructions �Recorded �Confirmed �Last Taken �Type
carvedilol 3.125 mg tablet (Coreg) 3.125 mg PO BID 04/29/24 06/01/24 06/01/24 History
cholecalciferol (vitamin D3) 25 25 mcg PO MOWEFR 04/29/24 06/01/24 06/01/24 History
mcg (1,000 unit) tablet (Vitamin
D3)
cyanocobalamin (vitamin B-12) 1,000 mcg PO MOWEFR 04/29/24 06/01/24 06/01/24 History
1,000 mcg tablet
denosumab 60 mg/mL subcutaneous 60 mg SC [id number] 04/29/24 06/01/24 Unknown History
syringe (Prolia)
fenofibrate nanocrystallized 48 mg 48 mg PO DAILY 04/29/24 06/01/24 06/01/24 History
tablet (Tricor)
metformin 500 mg tablet,extended 1,000 mg PO BID 04/29/24 06/01/24 06/01/24 History
release 24hr (osmotic)
rosuvastatin 10 mg tablet (Crestor) 10 mg PO DAILY 04/29/24 06/01/24 06/01/24 History
acetaminophen 650 mg 1,300 mg PO [id number] PRN mild pain 04/30/24 06/01/24 2 Days Ago History
tablet,extended release ~05/21/24
amlodipine 10 mg-valsartan 160 mg 0.5 tab PO DAILY 04/30/24 06/01/24 06/01/24 History
tablet
estradiol 0.01% (0.1 mg/gram) 1 g vaginal HS 04/30/24 06/01/24 05/31/24 History
vaginal cream (Estrace)
primidone 50 mg tablet 100 mg PO HS 04/30/24 06/01/24 05/31/24 History
aspirin 81 mg chewable tablet 81 mg PO DAILY #30 tabs 05/01/24 06/01/24 06/01/24 Rx
tramadol 50 mg tablet 25 - 50 mg (0.5 - 1 x 50 mg) PO 05/24/24 06/01/24 Unknown Rx
Q6HPRN PRN severe
pain/breakthrough pain #7 tabs
wdyhvpwqvy-qdxyoweqar-eetj 1 applic topical QID 06/01/24 06/01/24 06/01/24 History
vera-vits A,D,and E 20 %-3 %
topical cream (Vagisil)
fluconazole 150 mg tablet 150 mg PO Q72H 06/01/24 06/01/24 Unknown History
lidocaine-prilocaine 2.5 %-2.5 % 1 applic topical TIDPRN PRN 06/01/24 06/01/24 Unknown History
topical cream vaginal pain
polyethylene glycol 3350 17 4 g PO DAILYPRN PRN Constipation 06/01/24 06/01/24 Unknown History
gram/dose oral powder (Miralax)
Active Medications
Generic Name Dose Route Start Last Admin
Trade Name Freq PRN Reason Stop Dose Admin
Acetaminophen 650 mg 06/01/24 23:46 06/06/24 10:04
Acetaminophen 325 Mg Tablet PO 06/29/24 23:45 650 mg
Q4HPRN PRN Administration
mild pain/VASQUEZ/temp> 100.4F
Albuterol/Ipratropium 3 ml 06/02/24 08:00 06/06/24 11:16
Ipratropium 0.5/Albuterol 3 Mg (3 Ml Ampul) INH 3 ml
R QID RUDDY Administration
Protocol
Aspirin 81 mg 06/02/24 08:00 06/06/24 07:39
Aspirin 81 Mg Chewable Tablet PO 06/30/24 07:59 81 mg
DAILY RUDDY Administration
Carvedilol 3.125 mg 06/02/24 08:00 06/06/24 07:40
Carvedilol 3.125 Mg Tablet PO 06/30/24 07:59 3.125 mg
BID RUDDY Administration
Dextrose 12.5 grams 06/02/24 13:34
Dextrose 50% (0.5 Grams/Ml) 50 Ml Syringe IV 06/30/24 13:33
[id number] PRN
hypoglycemia
Protocol
Doxycycline Hyclate 100 mg 06/03/24 20:00 06/06/24 07:39
Doxycycline 100 Mg Capsule PO 100 mg
Q12 RUDDY Administration
Enoxaparin Sodium 30 mg 06/05/24 18:00 06/05/24 17:06
Enoxaparin Sodium 30 Mg/0.3 Ml Syringe SC 07/03/24 17:59 30 mg
QPM RUDDY Administration
Fenofibrate 48 mg 06/02/24 08:00 06/06/24 07:40
Fenofibrate 48 Mg Tablet PO 06/30/24 07:59 48 mg
DAILY RUDDY Administration
Folic Acid 1 mg 06/06/24 12:00
Folic Acid 1 Mg Tablet PO 07/04/24 11:59
DAILY RUDDY
Glucagon 1 mg 06/02/24 13:34
Glucagon 1 Mg Vial IM 06/30/24 13:33
PRN PRN
hypoglycemia
Protocol
Guaifenesin/Dextromethorphan 5 ml 06/04/24 10:52
Guaifenesin/Dextromethorphan 200 Mg/10 Ml Cup PO 07/02/24 10:51
Q4HPRN PRN
cough
Ampicillin Sodium/Sulbactam 120 mls @ 240 mls/hr 06/03/24 18:00 06/06/24 06:14
Sodium 3 gm/ Sodium Chloride IV 120 mls
Q12H RUDDY Administration
Insulin Glargine 15 units/ 0.15 mls @ 0 mls/hr 06/05/24 08:00 06/06/24 08:36
Device SC 07/03/24 07:59 0.15 mls
DAILY RUDDY Administration
As Directed
Insulin Aspart 0 units 06/03/24 16:30 06/06/24 08:33
Insulin Aspart Low Resistance 300 Units/3 Ml Pen.Injctr SC 07/01/24 16:29 Not Given
AC RUDDY
Protocol
Insulin Aspart 10 units 06/05/24 14:37 06/06/24 08:34
Insulin Aspart (100 Units/Ml) 3 Ml Flexpen SC 06/30/24 16:29 10 units
AC RUDDY Administration
Lidocaine 1 patch 06/05/24 22:00 06/06/24 07:38
Lidocaine 4% Topical Patch TOPICAL 07/03/24 21:59 1 patch
DAILY RUDDY Administration
Protocol
Lidocaine/Prilocaine 1 gram 06/01/24 23:46 06/06/24 07:37
Lidocaine 2.5%/Prilocaine 2.5% (Cream) 5 Gram Tube TOPICAL 06/29/24 23:45 1 gram
TIDPRN PRN Administration
vaginal pain
Metformin HCl 500 mg 06/02/24 17:00 06/05/24 08:08
Metformin 500 Mg Regular Release Tablet PO 06/30/24 16:59 500 mg
BID@0800,1700 RUDDY Administration
Ondansetron HCl 4 mg 06/01/24 23:46
Ondansetron 4 Mg/2 Ml Vial IV 06/29/24 23:45
Q6HPRN PRN
nausea and vomiting
Polyethylene Glycol 17 grams 06/02/24 10:00 06/06/24 07:39
Polyethylene Glycol Powder 17 Grams Packet PO 06/30/24 09:59 17 grams
DAILY RUDDY Administration
Primidone 100 mg 06/01/24 23:46 06/05/24 21:01
Primidone 50 Mg Tablet PO 06/29/24 23:45 100 mg
HS RUDDY Administration
Rosuvastatin Calcium 10 mg 06/02/24 08:00 06/06/24 07:39
Rosuvastatin (Crestor) 10 Mg Tablet PO 06/30/24 07:59 10 mg
DAILY RUDDY Administration
Sodium Chloride 0 flush 06/02/24 01:00
Sodium Chloride 0.9% (Flush) Syringe IV 06/30/24 00:59
PER PROTOCOL RUDDY
Sodium Chloride 2 sprays 06/05/24 12:25
Sodium Chloride 0.65% Nasal [place] 45 Ml Bottle NASAL 07/03/24 12:24
QIDPRN PRN
Dry nose
Valsartan 160 mg 06/02/24 08:00 06/05/24 08:08
Valsartan 80 Mg Tablet PO 06/30/24 07:59 160 mg
DAILY RUDDY Administration
Review of Systems
-
All Other Systems: Reviewed and Negative
Physical Exam
-
Physical examination shows the patient to be in no acute distress.
HEENT exam is unremarkable.
There are no palpable nodes.
Chest is clear.
The heart is regular with no murmur or gallop.
The abdomen is soft and nontender with no organomegaly or masses.
Extremities are unremarkable.
Neurologic is grossly intact.
Labs
Lab Results
WBC 9.9 10^3/uL (4.8-10.8) 06/06/24 08:35
RBC 2.59 10^6/uL (4.20-5.40) L 06/06/24 08:35
Hgb 8.6 g/dL (12.0-16.0) L 06/06/24 08:35
Hct 26.8 % (37.0-47.0) L 06/06/24 08:35
MCV 103.5 fL (81.0-99.0) H 06/06/24 08:35
MCH 33.2 pg (27.0-31.0) H 06/06/24 08:35
MCHC 32.1 g/dL (33.0-37.0) L 06/06/24 08:35
RDW 21.0 % (11.5-14.5) H 06/06/24 08:35
Plt Count 299 10^3/uL (130-400) 06/06/24 08:35
MPV 10.3 fL (7.4-10.4) 06/06/24 08:35
Abs Immat Gran (auto) 0.1 10^3/uL (0-0.05) H 06/01/24 17:36
Absolute Neuts (auto) 9.0 10^3/uL (1.4-6.5) H 06/01/24 17:36
Absolute Lymphs (auto) 1.0 10^3/uL (1.2-3.4) L 06/01/24 17:36
Absolute Monos (auto) 0.6 10^3/uL (0.1-0.6) 06/01/24 17:36
Absolute Eos (auto) 0.4 10^3/uL (0-0.7) 06/01/24 17:36
Absolute Basos (auto) 0.0 10^3/uL (0-0.2) 06/01/24 17:36
Immature Gran % 1.3 % (0-0.5) H 06/01/24 17:36
Neutrophils % 80.7 % (42.2-75.2) H 06/01/24 17:36
Lymphocytes % 8.6 % (20.5-51.1) L 06/01/24 17:36
Monocytes % 5.3 % (1.7-9.3) 06/01/24 17:36
Eosinophils % 3.9 % (0-6) 06/01/24 17:36
Basophils % 0.2 % (0-2) 06/01/24 17:36
Creatinine 1.3 mg/dL (0.6-1.0) H 06/06/24 08:35
Vital Signs
Vital Signs
Temp Pulse Resp BP Pulse Ox
98.6 F 77 16 138/60 100
06/06/24 07:07 06/06/24 11:18 06/06/24 11:18 06/06/24 11:15 06/06/24 11:18
[2024-06-06] MEDS: NOVOLOG FLEXPEN-LOW RESISTANCE 3 UNITS SC (12:24)
[2024-06-06 12:26] LABS: Glucose - Point of Care 292 mg/dl (70-99)
[2024-06-06] MEDS: FOLVITE 1 MG PO (12:33)
[2024-06-06 14:32] LABS: Hematocrit 27.4 % (37.0-47.0); Hemoglobin 8.6 g/dL (12.0-16.0); Mean Corp Hgb Conc. 31.4 g/dL (33.0-37.0); Mean Corpuscular Hgb 32.6 pg (27.0-31.0); Mean Corpuscular Volume 103.8 fL (81.0-99.0); Mean Platelet Volume 10.5 fL (7.4-10.4); Platelet Count 310 10^3/uL (130-400); Red Blood Cell Count 2.64 10^6/uL (4.20-5.40); Red Cell Dist. Width 20.7 % (11.5-14.5); White Blood Cell Count 9.7 10^3/uL (4.8-10.8)
[2024-06-06 14:42] LABS: Absolute Neutrophils -Man Diff 7.3 10^3/uL (1.4-6.5); Anisocytosis 1+; Band Neutrophils 1 % (0-3); Eosinophils 8 % (0-6); Lymphocytes 8 % (20-51); Monocytes 8 % (2-9); Normal RBC Morphology No; Platelets Checked Yes; Segmented Neutrophils 75 % (42-75)
[2024-06-06 14:43] LABS: Acanthocytes RARE; Hypochromasia FEW; Polychromasia FEW; Total Cells Counted 100
--- NOTE | 2024-06-06 14:56 | W.PN.HOSP.TC ---
Today's Communication/Plan
-
see note
Assessment / Plan
Assessment / Plan
CHEST CTA:
1. Severe calcific atherosclerotic plaque in the coronary arteries.
2. Mild cardiomegaly.
3. Mild inflammatory interstitial pneumonitis in the basilar segments of the lower lobes.
ABDOMEN and PELVIS:
1. Large amount of fecal material throughout the proximal colon suggesting SEVERE CONSTIPATION.
2. Small 5.8 cm tubular-shaped fluid collection in the gallbladder fossa adjacent to cholecystectomy surgical clips without surrounding inflammation.
3. Moderate pneumobilia consistent with previous biliary sphincterotomy.
4. Mild enlargement of the right lobe of the liver.
5. Moderate to severe pancreatic lipomatosis.
6. Moderate portacaval lymphadenopathy.
7. Mild to moderate chronic bilateral renal disease.
8. Severe calcific atherosclerotic plaque in the abdominal aorta and femoral arteries.
9. Previous hysterectomy.
10. Mild distention of the urinary bladder.
11. Severe multilevel discogenic degenerative disease and facet joint arthrosis in the lumbar spine.
12. Severe superior and inferior endplate fractures of L1 with near complete vertebral body collapse and retropulsion of the posterior cortex into the anterior epidural space.
HIDA
No scintigraphic evidence of common bile duct obstruction. No evidence to suggest bile leak. Findings consistent with reflux accumulation of intraluminal radiotracer within the duodenal bulb.
MRI abd
Heterogeneous signal in the gallbladder fossa, as described. Most consistent with postsurgical reactive soft tissue changes. The differential may include microabscess formation, though felt to be less likely given the absence of significant adjacent
inflammatory changes.
No ascites.
Subtle extrinsic compression along the left lateral margin of the distal common bile duct lumen. Possibly related to wall thickening which may be inflammatory or neoplastic. There is also suggestion of a 4.4 mm prevascular nodule adjacent pancreatic
head, possibly associated with a vessel, raising possibility of microaneurysm. A small neoplasm, such as neuroendocrine tumor may also be considered.
Diffuse atrophy with fatty replacement. Numerous tiny cystic structures. Nonspecific. May be related to chronic pancreatitis, with side branches distention, versus small branch type intraductal papillary mucinous neoplasm. No main pancreatic ductal
dilatation. No acute pancreatitis.

1. Gallbladder fossa fluid collection
Elevated T billirubin
s/p lap cholecystectomy on 05/23
-Possible postoperative seroma versus infected fluid (clinically less likely )
-No significant abdominal pain/nausea
-Total bilirubin 3.1 with direct 1.8. ALT 31 AST 53 essentially normal at admission.
-Cover empirically for any cholangitis/infection with Zosyn for now
-General Surgery evaluated and HIDA did not show any blockage or bile leakage
-MRI abd report as above. Atypical finding of questionable pancreatic head nodule/CBD compression? Gi evaluated and considering OP EUS
2. Acute hypoxic resp insufficiency - Re-occurring
-CXR showing interstitial pneumonitis vs scarring
-CT chest PE neg, no significant parenchymal changes
-chest x-ray showing questionable interstitial pneumonitis versus pneumonia
-Adjust antibiotic to Unasyn and doxycycline, Day 4/5
-Procal elevated to 1.28, ProbNP ~ 1k. TTE in may 12 showing EGF 60-65% Grade I dysfunction
-Provide IV Lasix 40 mg 1 dose today, wean off oxygen as possible
3. Post op anemia from blood loss
Chronic Macrocytic anemia
h/o of Vit B12 def
-Status post 2 unit of PRBC this admission. hbg 8.6 today
-Denies melena/blood in stool.
-B12/Folate WNL
-TSH 8/FT4 1.58, LDH 572, Retic count 9.5%, Direct rocky neg
-Hematology input noted question if primidone related mild hemolysis causing this. started on folate 1mg/d
4. ALIREZA on CKDIIIA
Acute urinary retention
-Patient was holding upward of 1.1 L of urine on bladder scan, required to be put on catheter
-Creatinine rapidly improving today
-Continue holding Diovan
-Patient wanting to Morrissey to be removed, will remove later in the day as giving Lasix in morning. Discussed with patient that Morrissey will need to be reinserted if patient started retaining again
5. Type II DM - Uncontrolled
-A1c of 6.8
-increased lantus 15 U /increased premeal insulin to 10U AC
-GI recommended regular diet due to poor oral intake
6. Hyponatremia
-minimal, continue monitoring.
7. Generalized weakness
-PT OT evaluation
8. Candidal vulvovaginitis
-Whitish mucosal lesion on examination, complaining of itching
-Provided 1 dose of fluconazole 150 mg
9. Fall
-Patient went to bathroom unassisted today and fell
-Ended up hitting head to side rail bathroom, CT head negative for acute abnormality
Essential hypertension
Lumbar spinal stenosis
History of mitral prolapse
history of
Full code
Case discussed with hematology
Total time spent : 52 mins
Anticipated Discharge: 24 - 48 hours
Subjective/Interval History
-
Date of Service: June 06, 2024
Resting comfortably in bed
remains on o2 through NC 2L
Denies having a bowel movement
Patient required to have morrissey catheter placed last night
Objective Data
-
Labs:
Laboratory Results
06/06/24 06/06/24
08:35 13:03
WBC 9.9 9.7
Hgb 8.6 L 8.6 L
Hct 26.8 L 27.4 L
Plt Count 299 310
Sodium 140
Potassium 4.4
Chloride 106
Carbon Dioxide 24
BUN 47 H
Creatinine 1.3 H
Glucose 163 H
Calcium 8.4
Vital Signs:
Vital Signs
Temp Pulse Resp BP Pulse Ox
98.6 F 77 16 138/60 95
06/06/24 07:07 06/06/24 11:18 06/06/24 11:18 06/06/24 11:15 06/06/24 13:38
I&O
06/05/24 06/06/24 06/07/24
06:59 06:59 06:59
Intake Total 1690 / 1690
Output Total 1350 / 1350
Balance 340 / 340
Review of Systems
-
Respiratory: Reports No Symptoms
Cardiac: Reports No Symptoms
Abdomen/GI: Reports No Symptoms
Physical Exam
-
General: No Apparent Distress and Comfortable
HEENT: Oxygen (2L NC)
Respiratory: Clear to Auscultation
Cardiac: Regular Rhythm and S1/S2; Negative Murmur or Rub
GI: Soft, Nontender and Nondistended
Genito-urinary: Morrissey (Clear yellow urine)
Musculoskeletal: No Edema
Neuro: Awake, Alert, Oriented, No Motor Deficits and Nonfocal/Grossly Intact
Psych: Calm
[2024-06-06 15:28] VITALS: BP 137/59
[2024-06-06 17:16] LABS: Glucose - Point of Care 125 mg/dl (70-99)
[2024-06-06] MEDS: LOVENOX 30 MG SC (17:40)
[2024-06-06 21:35] LABS: Glucose - Point of Care 68 mg/dl (70-99)
[2024-06-06] MEDS: MYSOLINE 100 MG PO (22:01)
[2024-06-06 22:02] LABS: Glucose - Point of Care 105 mg/dl (70-99)
[2024-06-06 23:19] VITALS: BP 143/63
[2024-06-07 00:07] LABS: Glucose - Point of Care 225 mg/dl (70-99)
[2024-06-07 02:37] LABS: Glucose - Point of Care 196 mg/dl (70-99)
--- NOTE | 2024-06-07 05:08 | PTCARENOTE ---
Patient bladder scan 433. Patient refused Goddard cath but after discussion agreed to straight cath. Straight cath for 500ml rj urine. Patient concerned about continued urinary retention. Nursing support given. Patient requests urology
consult. Will TT request to attending in am.
[2024-06-07] MEDS: UNASYN IV (05:54)
[2024-06-07] MEDS: FLUSH (NSS) 2 FLUSH IV (05:58)
[2024-06-07] MEDS: DUONEB 3 ML INH (07:02)
[2024-06-07 08:15] VITALS: BP 164/75
[2024-06-07 08:40] LABS: Glucose - Point of Care 146 mg/dl (70-99)
[2024-06-07] MEDS: LIDOCAINE 4% PATCH 1 PATCH TOPICAL (09:00)
[2024-06-07] MEDS: VIBRAMYCIN 100 MG PO (09:00)
[2024-06-07] MEDS: LOW STRENGTH ASPIRIN 81 MG PO (09:00)
[2024-06-07] MEDS: COREG 3.125 MG PO (09:00)
[2024-06-07] MEDS: CRESTOR 10 MG PO (09:00)
[2024-06-07] MEDS: FOLVITE 1 MG PO (09:00)
[2024-06-07] MEDS: TRICOR 48 MG PO (09:00)
[2024-06-07 09:02] LABS: Hematocrit 26.8 % (37.0-47.0); Hemoglobin 8.6 g/dL (12.0-16.0); Mean Corp Hgb Conc. 32.1 g/dL (33.0-37.0); Mean Corpuscular Hgb 33.3 pg (27.0-31.0); Mean Corpuscular Volume 103.9 fL (81.0-99.0); Mean Platelet Volume 10.3 fL (7.4-10.4); Platelet Count 330 10^3/uL (130-400); Red Blood Cell Count 2.58 10^6/uL (4.20-5.40); Red Cell Dist. Width 20.2 % (11.5-14.5); White Blood Cell Count 8.1 10^3/uL (4.8-10.8)
[2024-06-07] MEDS: NOVOLOG FLEXPEN-LOW RESISTANCE SC ×2 (09:02→17:43)
[2024-06-07] MEDS: MIRALAX PO (09:25)
[2024-06-07] MEDS: EMLA CREAM 1 GRAM TOPICAL ×2 (09:26→17:41)
[2024-06-07] MEDS: LANTUS 0.15 UNITS SC (09:28)
[2024-06-07 10:04] LABS: Blood Urea Nitrogen 47 mg/dl (7-17); Calcium 8.6 mg/dl (8.4-10.2); Carbon Dioxide 26 mmol/L (22-30); Chloride 103 mmol/L (98-107); Estimated Creatinine Clearance 31 ml/min; Glucose 135 mg/dl (70-99); Potassium 4.4 mmol/L (3.5-5.1); Sodium 140 mmol/L (135-145); eGFR 41.57
--- NOTE | 2024-06-07 10:06 | W.PN.ONC ---
Today's Communication / Plan
-
Kemar negative hemolysis, suspect intravascular hemolysis secondary to eccentric jet MR - would recommend cardiology/CT surgery eval, though patient states she's not interested in any surgery
Continue folic acid, transfuse as needed
Impression
Impression
Anemia, laboratories suggestive of hemolysis, direct Kemar negative
Variable mild jaundice, direct and indirect
Moderate mitral regurgitation, with multiple jets of eccentric MR
Recent cholecystectomy
Plan
Plan
Kemar negative hemolysis, suspect intravascular hemolysis secondary to eccentric jet MR - would recommend cardiology/CT surgery eval, though patient states she's not interested in any surgery
Continue folic acid, transfuse as needed
Subjective/Objective
Subjective/Objective
Feeling a bit better today
Still w/ diarrhea and urinary retention
Vital Signs:
Vital Signs
Temp Pulse Resp BP Pulse Ox
97.9 F 82 20 164/75 99
06/07/24 08:15 06/07/24 08:15 06/07/24 08:15 06/07/24 08:15 06/07/24 08:15
Lab Results:
Laboratory Data
WBC 8.1 10^3/uL (4.8-10.8) 06/07/24 08:31
Hgb 8.6 g/dL (12.0-16.0) L 06/07/24 08:31
Plt Count 330 10^3/uL (130-400) 06/07/24 08:31
eGFR 41.57 06/07/24 08:31
[2024-06-07] MEDS: NOVOLOG FLEXPEN SC (10:25)
[2024-06-07 12:18] LABS: Glucose - Point of Care 298 mg/dl (70-99)
[2024-06-07] MEDS: DIFLUCAN 150 MG PO (12:56)
[2024-06-07] MEDS: NOVOLOG FLEXPEN-LOW RESISTANCE 3 UNITS SC (12:56)
[2024-06-07] MEDS: NOVOLOG FLEXPEN 8 UNITS SC ×2 (12:57→17:41)
[2024-06-07] MEDS: FLOMAX 0.4 MG PO (12:59)
--- NOTE | 2024-06-07 13:14 | CM ---
MAREN met with Jenifer at bedside for over an hour, processing through her life while awaiting her 's arrival to discuss which SNF facilities are preferred.
--- NOTE | 2024-06-07 13:44 | CM ---
Addendum entered by Janice Hinton 06/07/24 14:22:
Pt not ready for discharge today; cardiology consult ordered; possible discharge tomorrow. [facility] notified of same. CM to continue to follow.
Original Note:
Jenifer's arrived on the unit and we discussed the available facilities for transfer to SNF. Pt's reviewed the Medicare Care Compare metrics for facilities and is most interested in [facility], and if
neither have bed availability, [facility] would be the next facility of choice.
CM contacted [facility] and spoke with Sintia who advised a bed is available; she will review the clinical information sent via [facility], and contact me to coordinate transfer if accepted.
CM awaits final determination from [facility] for acceptance. Will need to arrange transportation for transfer.
[facility] Report: [phone]
[facility]
--- NOTE | 2024-06-07 14:05 | CON.CAR ---
Addendum entered and electronically signed by Thien Peacock MD 06/07/24 16:42:
Attending addendum: Briefly, this is an 78-year-old female with a past medical history notable for hypertension, hyperlipidemia, diabetes, essential tremor and posterior mitral leaflet prolapse with moderate eccentric mitral regurgitation. She
presented to [facility] in April 2024 with abdominal discomfort and was diagnosed with choledocholithiasis. She was transferred to [facility] where she underwent successful ERCP. During that hospitalization she was
noted to have mild elevation in troponin and was subsequently referred for outpatient Lexiscan Myoview study for risk factor modification. The Lexiscan was completed on 05/09/2024 and did not suggest significant ischemia. She underwent successful
laparoscopic cholecystectomy on 10/2023. She was noted to have worsening in hemoglobin with hematocrit dropping from 9.4 mg/dL to 7.1 mg/dL and ultimately required 2 units of packed red blood cells as transfusion. She was evaluated by hematology
and peripheral smear was notable for occasional schistocytes and a hematology consult was requested. They expressed concern for possible hemolysis secondary to mitral leaflet prolapse and mitral regurgitation.
Physical exam
GEN: AAO x 3. No acute distress
HEENT: NC/AT, sclera are anicteric, hearing normal.
LUNGS: Clear in the anterolateral and basal posterior lung field. No wheezes. Good air movement
CV: Regular rate and rhythm. Normal S1/S2. No S3, No S4. Murmur: I/ murmur at LLSB and II/ blowing murmur at apex
ABD : Soft, NT. Bowel sounds are present
EXT: No CCE
NEURO: No focal neurologic deficits
RECOMMENDATIONS:
-Awaiting haptoglobin. Probably should check direct bilirubin
-Awaiting G6PD
-Very very rare cases of sleetmute mitral regurgitation associated hemolysis have been reported (on brief review of literature). I personally have never seen or participated in the care of a patient with sleetmute valve associated hemolytic anemia.
-I would continue to search for other possible etiology and it would be very helpful to obtain a database of H/H levels over the past several years. It would be exceedingly abnormal to have stable valvular heart disease to suddenly start causing
hemolysis if it has been present for quite some time. It may be worth a call to her PCP and outpatient automation control integrator
-Treatment may be worse than the disease meaning that mitral valve surgery in an 78 y/o would NOT be a low risk procedure
-If necessary we could consider SAMARIA but would hold for now
Original Note:
Consultation
Consultation Request
Date/Time Consultation Requested: 06/07/2024
Date/Time Consultation Performed: 06/07/2024
Requesting Provider: Harshil Razo
Performing Provider: Edilia Toscano PA-C for Dr. Sweeney
Reason for Consultation: Mitral regurgitation with concern for hemolysis
Medical History
-
History of Present Illness:
Patient is an 78 yo F with PMH of HTN, HLD, DM2, spinal stenosis, essential tremor, recurrent UTIs, heart murmur [facility] who presented to [place] in April 2024 with abdominal pain and was diagnosed with
choledocholithiasis and was transferred to for which he underwent successful ERCP. Patient was noted to have elevated troponin and was referred for outpatient Lexiscan nuclear stress test prior to undergoing cholecystectomy for risk factor
stratification. Lexiscan nuclear stress test was completed 05/09/2024 which failed to demonstrate evidence of ischemia. She also had echocardiogram in April 2024 which showed preserved ejection fraction with moderate MR with mild mitral prolapse
of posterior leaflet. There was moderate TR with PAP 60 to 65 mmHg. Patient underwent successful laparoscopic cholecystectomy on 05/23/2024. Unfortunately she presented back to emergency department 06/01/2024 with minimal appetite, poor oral
intake, lethargy and weakness. She was noted to have improving LFTs. HIDA scan showed no bile leak or obstruction. CTA with severe constipation, small collection in GB fossa and MRI with post surgical changes Subtle extrinsic compression along
the left lateral margin of the distal common bile duct lumen. Possibly related to wall thickening which may be inflammatory or neoplastic. There is also suggestion of a 4.4 mm prevascular nodule adjacent pancreatic head, possibly associated with a
vessel, raising possibility of microaneurysm. A small neoplasm, such as neuroendocrine tumor may also be considered. there was also change of possible chronic pancreatitis vs small IPMN no duct dilation. Patient was found to be worsening anemia
with prior hemoglobin noted to be highest at 9.4 dropping to 7.1. Patient required 2 units of packed RBCs. Patient was evaluated by hematology with laboratories including elevated LDH and reticulocyte count are suggestive of hemolysis, the direct
Kemar is negative. Peripheral smear showed some occasional schistocytes as well as cookie bite cells and background macrocytosis. This suggests a nonimmune hemolytic process. Cardiology being asked to see patient with concern for hemolysis from
at least moderate MR with mild mitral valve prolapse. LDH 572, Haptoglobin pending
At time of this evaluation patient denies any concerning cardiac symptoms. She denies chest pain, shortness of breath, dizziness, lightheadedness, orthopnea, PND or palpitations. She tells me she is not very active due to spinal stenosis but had
no concerning cardiac symptoms prior to her events starting in April. She reports she always has a low hemoglobin and thinks her baseline Hgb is between 8 and 10.
PMH:
Moderate mitral valve regurgitation with mild mitral valve prolapse of posterior leaflet
Tricuspid regurgitation
HTN
HLD
DM2
cholangitis with choledocholithiasis/cholelithiasis
Status post ERCP 04/29/24
Status postcholecystectomy 05/23/2024
spinal stenosis
essential tremor
recurrent UTIs
Anemia
Past Medical History
Past Medical History: Other (in HPI)
Past Surgical History: Cholecystectomy (05/23/2024, ERCP with stone extraction 04/29/2024), Gynecological (Tubal ligation), Orthopedic (Left carpal tunnel release) and Other (Cataract extraction)
Social History
Tobacco: Non-Smoker
Alcohol: None
Drug: None
Personal:
Living: With Family
Family History
Family History: Reviewed & Not Pertinent
Allergies / Home Medications
Allergy/AdvReac Type Severity Reaction Status Date / Time
No Known Allergies Allergy Verified 06/01/24 16:23
�Medication �Instructions �Recorded �Confirmed �Type
carvedilol 3.125 mg tablet (Coreg) 3.125 mg PO BID 04/29/24 06/01/24 History
cholecalciferol (vitamin D3) 25 25 mcg PO MOWEFR 04/29/24 06/01/24 History
mcg (1,000 unit) tablet (Vitamin
D3)
cyanocobalamin (vitamin B-12) 1,000 mcg PO MOWEFR 04/29/24 06/01/24 History
1,000 mcg tablet
denosumab 60 mg/mL subcutaneous 60 mg SC [id number] 04/29/24 06/01/24 History
syringe (Prolia)
fenofibrate nanocrystallized 48 mg 48 mg PO DAILY 04/29/24 06/01/24 History
tablet (Tricor)
metformin 500 mg tablet,extended 1,000 mg PO BID 04/29/24 06/01/24 History
release 24hr (osmotic)
rosuvastatin 10 mg tablet (Crestor) 10 mg PO DAILY 04/29/24 06/01/24 History
acetaminophen 650 mg 1,300 mg PO [id number] PRN mild pain 04/30/24 06/01/24 History
tablet,extended release
amlodipine 10 mg-valsartan 160 mg 0.5 tab PO DAILY 04/30/24 06/01/24 History
tablet
estradiol 0.01% (0.1 mg/gram) 1 g vaginal HS 04/30/24 06/01/24 History
vaginal cream (Estrace)
primidone 50 mg tablet 100 mg PO HS 04/30/24 06/01/24 History
aspirin 81 mg chewable tablet 81 mg PO DAILY #30 tabs 05/01/24 06/01/24 Rx
tramadol 50 mg tablet 25 - 50 mg (0.5 - 1 x 50 mg) PO 05/24/24 06/01/24 Rx
Q6HPRN PRN severe
pain/breakthrough pain #7 tabs
onfovvjihp-ulqivhzjtr-beea 1 applic topical QID 06/01/24 06/01/24 History
vera-vits A,D,and E 20 %-3 %
topical cream (Vagisil)
fluconazole 150 mg tablet 150 mg PO Q72H 06/01/24 06/01/24 History
lidocaine-prilocaine 2.5 %-2.5 % 1 applic topical TIDPRN PRN 06/01/24 06/01/24 History
topical cream vaginal pain
polyethylene glycol 3350 17 4 g PO DAILYPRN PRN Constipation 06/01/24 06/01/24 History
gram/dose oral powder (Miralax)
Review of Systems
-
History Source: Patient
All other systems: Negative unless noted
Physical Exam
Vital Signs
Temp Pulse Resp BP Pulse Ox
97.9 F 82 20 164/75 99
06/07/24 08:15 06/07/24 08:15 06/07/24 08:15 06/07/24 08:15 06/07/24 08:15
GEN: No distress, awake, Ox3
HEENT: supple, anicteric, mmm
LUNGS: CTA, no wheezes/rales
CV: Reg, S1/S2, 2/6 syst murmur, no rub or gallop
ABD: soft, mild tenderness, non-distended
EXT: No edema, clubbing or cyanosis
NEURO: Gross non-focal
SKIN: No rash, warm, dry, pink
Lab Results
06/07/24 08:31
06/07/24 08:31
Zit-J-Wurpbsgxfgq Pept 1020 pg/ml 06/04/24 06:18
Impression / Plan
-
Primary Stock Trader: [facility] ([facility]kin Hern[facility]dez), saw Dr. Long in office for pre-op clearance
Impression:
Presented 06/01/2024 with minimal appetite, poor oral intake, lethargy and weakness
Gallbladder fossa fluid collection
Recent ERCP 04/29/24 followed by laparoscopic cholecystectomy 05/23/2024
Elevated total bilirubin
Jaundice
Pancreatic head nodule/CBD compression? on imaging
Acute hypoxic resp insufficiency, chest x-ray concerning for interstitial pneumonitis versus pneumonia
Acute anemia requiring blood transfusion
Elevated LDH and reticulocyte count
Direct Kemar test negative
Moderate mitral valve regurgitation with mild mitral valve prolapse of posterior leaflet
Tricuspid regurgitation
Anemia
HTN
HLD
DM2
Spinal stenosis
Essential tremor
Recurrent UTIs
Echo December 24, 2023 (OSH): EF 75 to 80% with hyperdynamic LV function. Mild concentric LVH. Normal RV size and function. Mildly dilated left atrium. Moderate MR with prolapse of posterior mitral leaflet and focal calcification of anterior mitral
leaflet no significant change compared to echo from May 2023
Echo��04/29/2024: Normal LV size, systolic function, no regional wall motion abnormality, EF 60 to 65%, mild concentric LVH, grade 1 diastolic dysfunction, normal RV size and function, mild mitral sclerosis with mild prolapse posterior leaflet with
at least moderate MR, aortic sclerosis without stenosis, no AI, moderate TR with PASP 60 to 65 mmHg no pericardial effusion no prior comparison.
Lexiscan Stress Test��05/09/2024: myocardial perfusion imaging no fixed or reversible defect seen, EF 75%
Plan:
Presented 06/01/2024 with minimal appetite, poor oral intake, lethargy and weakness ongoing since laparoscopic cholecystectomy 05/23/2024.
-Noted to have elevated total bilirubin and concern for gallbladder fossa fluid collection. Also found to have pancreatic head nodule/CBD compression on imaging.
-Hospitalist covering empirically with antibiotics
-GI now following and considering outpatient EUS
Acute hypoxic respiratory insufficiency with chest x-ray showing interstitial pneumonitis versus scarring. Chest CT was negative for PE. Pro-Jaison elevated at 1.2. Continue antibiotics.
-proBNP 1020. Patient had ALIREZA in the setting of acute urinary retention requiring Goddard insertion. Goddard removed however nurse reporting patient has minimal urine output.
-Valsartan and Lasix on hold.
-Does not appear to be acutely volume overloaded or in heart failure on examination
Ongoing anemia over the last 4 weeks with maximum hemoglobin of 9.4 dropping to 7.1 requiring patient to undergo blood transfusion with 2 units of packed RBCs this admission.
-Per review of outpatient blood work from December 2023 hemoglobin was 10.8. HCT 32.7, MCV 97, MCHC 33.0, RDW 13, platelets 236
-evaluated by hematology with laboratories including elevated LDH (572) and reticulocyte count (9.5%) are suggestive of hemolysis, the direct Kemar is negative. LDH 572, Haptoglobin pending
-Peripheral smear showed some occasional schistocytes as well as cookie bite cells and background macrocytosis. This suggests a nonimmune hemolytic process.
-Hematology has started folic acid as old reports of primidone could be associated with induction of folic acid deficiency.
-Concern that moderate MR with mild mitral valve prolapse may be playing a role. It is possible but although this would be rare. Will have non-invasive cardiology colleagues further review echo. Pending review could consider SAMARIA to further assess
valve. Unclear if she would be a surgical candidate for valve replacement and she is unsure if she would want surgery
Discussed with patient, patient's who is at bedside and nursing
HPI 06/07/2024:
Patient is an 78 yo F with PMH of HTN, HLD, DM2, spinal stenosis, essential tremor, recurrent UTIs, heart murmur followed by [facility] who presented to [place] in April 2024 with abdominal pain and was diagnosed with
choledocholithiasis and was transferred to for which he underwent successful ERCP. Patient was noted to have elevated troponin and was referred for outpatient Lexiscan nuclear stress test prior to undergoing cholecystectomy for risk factor
stratification. Lexiscan nuclear stress test was completed 05/09/2024 which failed to demonstrate evidence of ischemia. She also had echocardiogram in April 2024 which showed preserved ejection fraction with moderate MR with mild mitral prolapse
of posterior leaflet. There was moderate TR with PAP 60 to 65 mmHg. Patient underwent successful laparoscopic cholecystectomy on 05/23/2024. Unfortunately she presented back to emergency department 06/01/2024 with minimal appetite, poor oral
intake, lethargy and weakness. She was noted to have improving LFTs. HIDA scan showed no bile leak or obstruction. CTA with severe constipation, small collection in GB fossa and MRI with post surgical changes Subtle extrinsic compression along
the left lateral margin of the distal common bile duct lumen. Possibly related to wall thickening which may be inflammatory or neoplastic. There is also suggestion of a 4.4 mm prevascular nodule adjacent pancreatic head, possibly associated with a
vessel, raising possibility of microaneurysm. A small neoplasm, such as neuroendocrine tumor may also be considered. there was also change of possible chronic pancreatitis vs small IPMN no duct dilation. Patient was found to be worsening anemia
with prior hemoglobin noted to be highest at 9.4 dropping to 7.1. Patient required 2 units of packed RBCs. Patient was evaluated by hematology with laboratories including elevated LDH and reticulocyte count are suggestive of hemolysis, the direct
Kemar is negative. Peripheral smear showed some occasional schistocytes as well as cookie bite cells and background macrocytosis. This suggests a nonimmune hemolytic process. Cardiology being asked to see patient with concern for hemolysis from
at least moderate MR with mild mitral valve prolapse. LDH 572, Haptoglobin pending
Data Reviewed
-
EKG: Report Reviewed by me, Discussed with Physician, Discussed with Nurse, Discussed with Patient and Discussed with Family
Radiology: Report Reviewed by me, Discussed with Physician, Discussed with Nurse, Discussed with Patient and Discussed with Family
Medical Tests (Nuc Med, Echo etc): Report Reviewed by me, Discussed with Physician, Discussed with Patient and Discussed with Family
Labs: Labs Reviewed by me, Discussed with Physician, Discussed with Nurse, Discussed with Patient and Discussed with Family
Old Records: Reviewed
--- NOTE | 2024-06-07 15:01 | W.PN.HOSP.TC ---
Today's Communication/Plan
-
see note
cardio evaluation
discharge planning for eventual snf rehab
Assessment / Plan
Assessment / Plan
CHEST CTA:
1. Severe calcific atherosclerotic plaque in the coronary arteries.
2. Mild cardiomegaly.
3. Mild inflammatory interstitial pneumonitis in the basilar segments of the lower lobes.
ABDOMEN and PELVIS:
1. Large amount of fecal material throughout the proximal colon suggesting SEVERE CONSTIPATION.
2. Small 5.8 cm tubular-shaped fluid collection in the gallbladder fossa adjacent to cholecystectomy surgical clips without surrounding inflammation.
3. Moderate pneumobilia consistent with previous biliary sphincterotomy.
4. Mild enlargement of the right lobe of the liver.
5. Moderate to severe pancreatic lipomatosis.
6. Moderate portacaval lymphadenopathy.
7. Mild to moderate chronic bilateral renal disease.
8. Severe calcific atherosclerotic plaque in the abdominal aorta and femoral arteries.
9. Previous hysterectomy.
10. Mild distention of the urinary bladder.
11. Severe multilevel discogenic degenerative disease and facet joint arthrosis in the lumbar spine.
12. Severe superior and inferior endplate fractures of L1 with near complete vertebral body collapse and retropulsion of the posterior cortex into the anterior epidural space.
HIDA
No scintigraphic evidence of common bile duct obstruction. No evidence to suggest bile leak. Findings consistent with reflux accumulation of intraluminal radiotracer within the duodenal bulb.
MRI abd
Heterogeneous signal in the gallbladder fossa, as described. Most consistent with postsurgical reactive soft tissue changes. The differential may include microabscess formation, though felt to be less likely given the absence of significant adjacent
inflammatory changes.
No ascites.
Subtle extrinsic compression along the left lateral margin of the distal common bile duct lumen. Possibly related to wall thickening which may be inflammatory or neoplastic. There is also suggestion of a 4.4 mm prevascular nodule adjacent pancreatic
head, possibly associated with a vessel, raising possibility of microaneurysm. A small neoplasm, such as neuroendocrine tumor may also be considered.
Diffuse atrophy with fatty replacement. Numerous tiny cystic structures. Nonspecific. May be related to chronic pancreatitis, with side branches distention, versus small branch type intraductal papillary mucinous neoplasm. No main pancreatic ductal
dilatation. No acute pancreatitis.

1. Gallbladder fossa fluid collection
Elevated T bilirubin
s/p lap cholecystectomy on 05/23
-Possible postoperative seroma versus infected fluid (clinically less likely )
-No significant abdominal pain/nausea
-Total bilirubin 3.1 with direct 1.8. ALT 31 AST 53 essentially normal at admission.
-Cover empirically for any cholangitis/infection with Zosyn for now
-General Surgery evaluated and HIDA did not show any blockage or bile leakage
-MRI abd report as above. Atypical finding of questionable pancreatic head nodule/CBD compression? Gi evaluated and considering OP EUS
2. Acute hypoxic resp insufficiency - Resolved
-CXR showing interstitial pneumonitis vs scarring
-CT chest PE neg, no significant parenchymal changes
-chest x-ray showing questionable interstitial pneumonitis versus pneumonia
-Stop further antibiotics, day 5/5 today.
-Procal elevated to 1.28, ProbNP ~ 1k. TTE in may 12 showing EGF 60-65% Grade I dysfunction
-off of o2 at this point.
3. Post op anemia from blood loss
Chronic Macrocytic anemia
h/o of Vit B12 def
-Status post 2 unit of PRBC this admission. hbg 8.6 - continue monitoring
-Denies melena/blood in stool.
-B12/Folate WNL
-TSH 8/FT4 1.58, LDH 572, Retic count 9.5%, Direct rocky neg
-Echocardiogram showing mitral regurgitation with eccentric regurgitation jets and question of possible valvulopathy causing intravascular hemolysis. Cardiology evaluation requested
4. ALIREZA on CKDIIIA
Acute urinary retention
-Patient was holding upward of 1.1 L of urine on bladder scan, required to be put on catheter
-Creatinine rapidly improved
-Continue holding Diovan
-Goddard removed and we discussed that patient may have neurogenic bladder/bladder laxity due to chronic morbidity and being hospitalized for some time now. Patient hesitant to have Goddard placed back in. May require straight cath based on PVR
-added flomax to regimen
5. Type II DM - Uncontrolled
Episode of hypoglycemia
-A1c of 6.8
-Continue daytime Lantus
-Patient Hypoglycemia last night, decreasing Premeal insulin
-GI recommended regular diet due to poor oral intake likely contributing to fluctuating blood glucose
6. Hyponatremia
-minimal, continue monitoring.
7. Generalized weakness
-PT OT evaluation
8. Candidal vulvovaginitis
-Whitish mucosal lesion on examination, complaining of itching
-Provided 1 dose of fluconazole 150 mg , repeat dose of 150 mg today.
9. Fall
-Patient went to bathroom unassisted today and fell
-Ended up hitting head to side rail bathroom, CT head negative for acute abnormality
10. Essential hypertension
-Valsartan needed to be hold due to renal dysfunction, likely not safe with patient having on and off urinary retention
-Started patient back on Norvasc. Dose of Coreg increased
Lumbar spinal stenosis
History of mitral prolapse
history of
Full code
Case discussed with cardiology
Anticipated Discharge: Within 24 hours
Subjective/Interval History
-
Date of Service: June 07, 2024
Able to void with some residual bladder volume
Off of oxygen
No other complaints
Objective Data
-
Labs:
Laboratory Results
06/07/24
08:31
WBC 8.1
Hgb 8.6 L
Hct 26.8 L
Plt Count 330
Sodium 140
Potassium 4.4
Chloride 103
Carbon Dioxide 26
BUN 47 H
Creatinine 1.3 H
Glucose 135 H
Calcium 8.6
Vital Signs:
Vital Signs
Temp Pulse Resp BP Pulse Ox
97.9 F 82 20 164/75 99
06/07/24 08:15 06/07/24 08:15 06/07/24 08:15 06/07/24 08:15 06/07/24 08:15
I&O
06/06/24 06/07/24 06/08/24
06:59 06:59 06:59
Intake Total 1690 / 1690 360 / 360 240 / 240
Output Total 1350 / 1350 1700 / 1700
Balance 340 / 340 -1340 / -1340 240 / 240
Review of Systems
-
Respiratory: Reports No Symptoms
Cardiac: Reports No Symptoms
Abdomen/GI: Reports No Symptoms
Genitourinary: Reports Difficulty Voiding
Physical Exam
-
General: No Apparent Distress and Comfortable
HEENT: Negative Oxygen
Respiratory: Clear to Auscultation
Cardiac: Regular Rhythm and S1/S2; Negative Murmur or Rub
GI: Soft, Nontender and Nondistended
Genito-urinary: Goddard (Clear yellow urine)
Musculoskeletal: No Edema
Neuro: Awake, Alert, Oriented, No Motor Deficits and Nonfocal/Grossly Intact
Psych: Calm
[2024-06-07] MEDS: NORVASC 10 MG PO (15:24)
[2024-06-07 15:50] VITALS: BP 151/66
--- NOTE | 2024-06-07 17:00 | PTCARENOTE ---
Addendum entered by Evelyn Ackerman RN 06/07/24 19:43:
Patient refused to keep Goddard catheter in so straight catheterized only. Explained risks to patient and patient verbalizes understanding of all but does not want Goddard catheter kept in.
Addendum entered by Evelyn Ackerman RN 06/07/24 17:28:
700 mls drained. Catheter removed.
Original Note:
Patient without urination. Bladder scanned for 600 mls. Straight catheterized with one attempt.
[2024-06-07 17:36] LABS: Glucose - Point of Care 133 mg/dl (70-99)
[2024-06-07] MEDS: LOVENOX 30 MG SC (17:42)
[2024-06-07] MEDS: COREG 6.25 MG PO (20:35)
[2024-06-07 21:43] LABS: Glucose - Point of Care 257 mg/dl (70-99)
[2024-06-07 22:15] LABS: Haptoglobin <10 mg/dL (30-200)
[2024-06-07] MEDS: MYSOLINE 100 MG PO (23:13)
[2024-06-07 23:26] VITALS: BP 127/57
[2024-06-07] MEDS: TYLENOL 650 MG PO (23:26)
--- NOTE | 2024-06-08 07:19 | W.PN.ONC2 ---
Today's Communication / Plan
-
Continue folic acid, transfuse as needed.
Doubt PNH but will check (CD 55/59 + HS Flow w Flaer) as well as cold agglutinins.
Impression
Impression
Anemia, laboratories suggestive of hemolysis, direct Rocky negative
Variable mild jaundice, direct and indirect
Moderate mitral regurgitation, with multiple jets of eccentric MR
Recent cholecystectomy
Plan
Plan
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
Haptoglobin undetectable and retic & LDH elevated - classic hemolytic anemia. BENJAMIN (rocky) NEGATIVE
Retic elevation suggests adequate marrow function so doubt 2 seperate causes of anemia (eg- MDS with concomitant BENJAMIN NEG VASQUEZ).
Check CD55/59 and Flaer for ? PNH.
Continue folic acid, transfuse as needed.
Decisions regarding SAMARIA and discussion regarding MVR vs TMVR (not available at ) out of my scope of medical knowledge
Subjective/Objective
Chief Complaint
ACS Heme F/U
Subjective
Feeling okay. No C/O. Told by chief of party that heart unlikely to be cause of anemia.
Vital Signs:
Vital Signs
Temp Pulse Resp BP Pulse Ox
98.9 F 87 18 127/57 96
06/07/24 23:26 06/07/24 23:26 06/07/24 23:26 06/07/24 23:26 06/07/24 23:26
Lab Results:
Laboratory Data
WBC 8.1 10^3/uL (4.8-10.8) 06/07/24 08:31
Hgb 8.6 g/dL (12.0-16.0) L 06/07/24 08:31
Plt Count 330 10^3/uL (130-400) 06/07/24 08:31
eGFR 41.57 06/07/24 08:31
Laboratory Tests
06/04/24 06/05/24 06/05/24
06:18 06:22 15:22
Retic Count 9.5 H
Haptoglobin <10 L
Ferritin 472.0 H
Total Bilirubin 2.9 H
Direct Bilirubin 1.9 H
Lactate Dehydrogenase 572 H
Vitamin B12 761
Folate 6.2
Direct Antiglob Test
BENJAMIN, IgG Specific
BENJAMIN, Complement
06/05/24
15:50
Retic Count
Haptoglobin
Ferritin
Total Bilirubin
Direct Bilirubin
Lactate Dehydrogenase
Vitamin B12
Folate
Direct Antiglob Test Negative
BENJAMIN, IgG Specific Negative
BENJAMIN, Complement Neg
Physical Exam
HEENT: No Jaundice
Cardiology: S1 and S2
Pulmonary: Clear
[2024-06-08 07:27] LABS: Glucose - Point of Care 151 mg/dl (70-99)
[2024-06-08 07:35] VITALS: BP 163/64
[2024-06-08 07:57] LABS: Hematocrit 27.5 % (37.0-47.0); Hemoglobin 8.7 g/dL (12.0-16.0); Mean Corp Hgb Conc. 31.6 g/dL (33.0-37.0); Mean Corpuscular Hgb 33.2 pg (27.0-31.0); Mean Platelet Volume 10.2 fL (7.4-10.4); Platelet Count 328 10^3/uL (130-400); Red Blood Cell Count 2.62 10^6/uL (4.20-5.40); Red Cell Dist. Width 19.9 % (11.5-14.5); White Blood Cell Count 7.4 10^3/uL (4.8-10.8)
[2024-06-08 09:40] LABS: Blood Urea Nitrogen 45 mg/dl (7-17); Calcium 9.1 mg/dl (8.4-10.2); Carbon Dioxide 21 mmol/L (22-30); Chloride 107 mmol/L (98-107); Estimated Creatinine Clearance 37 ml/min; Glucose 132 mg/dl (70-99); Potassium 4.8 mmol/L (3.5-5.1); Sodium 142 mmol/L (135-145)
[2024-06-08] MEDS: CRESTOR 10 MG PO (09:44)
[2024-06-08] MEDS: COREG 6.25 MG PO ×2 (09:44→21:17)
[2024-06-08] MEDS: NORVASC 10 MG PO (09:45)
[2024-06-08] MEDS: LOW STRENGTH ASPIRIN 81 MG PO (09:45)
[2024-06-08] MEDS: TRICOR 48 MG PO (09:45)
[2024-06-08] MEDS: LIDOCAINE 4% PATCH 1 PATCH TOPICAL (09:45)
[2024-06-08] MEDS: FOLVITE 1 MG PO (09:45)
[2024-06-08] MEDS: MIRALAX PO (09:45)
[2024-06-08] MEDS: NOVOLOG FLEXPEN-LOW RESISTANCE 1 UNITS SC ×2 (09:46→17:49)
[2024-06-08] MEDS: LANTUS 0.15 UNITS SC (09:46)
[2024-06-08] MEDS: FLUSH (NSS) 1 FLUSH IV (09:47)
[2024-06-08] MEDS: NOVOLOG FLEXPEN 8 UNITS SC ×3 (09:47→17:50)
[2024-06-08 11:53] LABS: Glucose - Point of Care 142 mg/dl (70-99)
--- NOTE | 2024-06-08 12:27 | W.PN.CARDCBS ---
Addendum entered and electronically signed by Gabriele Mercado MD 06/08/24 13:32:
I saw and examined the patient.
The Glass Unloading Equipment Tender's note was reviewed and I agree with the note.
Comment:
GEN: No distress, awake, Ox3
HEENT: supple, anicteric, mmm
LUNGS: CTA, no wheezes/rales
CV: Reg, S1/S2, 1/6 syst LSB, no gallop
ABD: soft, BS+, NT/ND
EXT: No edema
NEURO: Gross non-focal
SKIN: No rash
Plan:
Will repeat transthoracic echo today to reevaluate mitral valve. It is incredibly rare to get hemodialysis from [place] mitral regurgitation. Either way she would not be a candidate for open heart surgery at this time.
Would continue to treat this conservatively. Will hold off on SAMARIA at this point. Will review transthoracic echo first
Original Note:
Today's Communication / Plan
-
Recheck echo today to re-eval MR
51 min face to face, chart prep, coordination care with other specialists
Impression / Plan
-
Primary Gymnastics Instructor: [facility] (Akin Hernández), saw Dr. Long in office for pre-op clearance
Impression:
Presented 06/01/2024 with minimal appetite, poor oral intake, lethargy and weakness
Gallbladder fossa fluid collection
Recent ERCP 04/29/24 followed by laparoscopic cholecystectomy 05/23/2024
Elevated total bilirubin
Jaundice
Pancreatic head nodule/CBD compression? on imaging
Acute hypoxic resp insufficiency, chest x-ray concerning for interstitial pneumonitis versus pneumonia
Acute anemia requiring blood transfusion
Elevated LDH and reticulocyte count
Direct Kemar test negative
Moderate mitral valve regurgitation with mild mitral valve prolapse of posterior leaflet
Tricuspid regurgitation
Anemia
HTN
HLD
DM2
Spinal stenosis
Essential tremor
Recurrent UTIs
Lexiscan Stress Test��05/09/2024: myocardial perfusion imaging no fixed or reversible defect seen, EF 75%
Echo December 24, 2023 (OSH): EF 75 to 80% with hyperdynamic LV function. Mild concentric LVH. Normal RV size and function. Mildly dilated left atrium. Moderate MR with prolapse of posterior mitral leaflet and focal calcification of anterior mitral
leaflet no significant change compared to echo from May 2023
Echo�04/29/2024: Normal LV size, systolic function, no regional wall motion abnormality, EF 60 to 65%, mild concentric LVH, grade 1 diastolic dysfunction, normal RV size and function, mild mitral sclerosis with mild prolapse posterior leaflet with
at least moderate MR, aortic sclerosis without stenosis, no AI, moderate TR with PASP 60 to 65 mmHg no pericardial effusion no prior comparison.
Plan:
-Patient was admitted with gallbladder fossa fluid collection on 06/01/24 and previously had lap jerome 05/23/24. Currently on Zosyn and HIDA did not show blockage or bile leak. Patient had an MRI that showed possible pancreatic head nodule and GI
recommended an outpatient EUS.
-From a cardiac perspective, patient with acute hypoxic respiratory failure and was given Lasix 40 mg IV x1 on 06/02/24, 06/04/24 and 06/06/24. Patient was not taking a diuretic prior to admission. Weight unchanged and ALIREZA up to 1.6. No additional
Lasix since 06/06/24.
-Goddard placed and then removed for ALIREZA and urinary retention, will follow
-EF preserved at 60-65%
-Outpatient dose of Coreg 6.25 mg BID continued
-Outpatient dose of valsartan on hold due to ALIREZA
-Heme/Onc note reviewed. Also talked with Heme/Onc 06/08/24 AM. Patient with anemia requiring transfusion. LDH 572 and retic count 9.5%. Direct Kemar is negative. New to folic acid. MR was at least moderate by echo 04/29/24 and will repeat echo to
look at MR again on 06/08/24
HPI 06/07/2024:
Patient is an 78 yo F with PMH of HTN, HLD, DM2, spinal stenosis, essential tremor, recurrent UTIs, heart murmur followed by [facility] who presented to [facility] in April 2024 with abdominal pain and was diagnosed with
choledocholithiasis and was transferred to for which he underwent successful ERCP. Patient was noted to have elevated troponin and was referred for outpatient Lexiscan nuclear stress test prior to undergoing cholecystectomy for risk factor
stratification. Lexiscan nuclear stress test was completed 05/09/2024 which failed to demonstrate evidence of ischemia. She also had echocardiogram in April 2024 which showed preserved ejection fraction with moderate MR with mild mitral prolapse
of posterior leaflet. There was moderate TR with PAP 60 to 65 mmHg. Patient underwent successful laparoscopic cholecystectomy on 05/23/2024. Unfortunately she presented back to emergency department 06/01/2024 with minimal appetite, poor oral
intake, lethargy and weakness. She was noted to have improving LFTs. HIDA scan showed no bile leak or obstruction. CTA with severe constipation, small collection in GB fossa and MRI with post surgical changes Subtle extrinsic compression along
the left lateral margin of the distal common bile duct lumen. Possibly related to wall thickening which may be inflammatory or neoplastic. There is also suggestion of a 4.4 mm prevascular nodule adjacent pancreatic head, possibly associated with a
vessel, raising possibility of microaneurysm. A small neoplasm, such as neuroendocrine tumor may also be considered. there was also change of possible chronic pancreatitis vs small IPMN no duct dilation. Patient was found to be worsening anemia
with prior hemoglobin noted to be highest at 9.4 dropping to 7.1. Patient required 2 units of packed RBCs. Patient was evaluated by hematology with laboratories including elevated LDH and reticulocyte count are suggestive of hemolysis, the direct
Kemar is negative. Peripheral smear showed some occasional schistocytes as well as cookie bite cells and background macrocytosis. This suggests a nonimmune hemolytic process. Cardiology being asked to see patient with concern for hemolysis from
at least moderate MR with mild mitral valve prolapse. LDH 572, Haptoglobin pending
Progress Note - Gymnastics Instructor
Subjective
Date of Service: June 08, 2024
No chest pain
Objective
Labs:
06/08/24 07:30
06/08/24 07:30
Labs
Hgb 8.7 g/dL (12.0-16.0) L 06/08/24 07:30
Hct 27.5 % (37.0-47.0) L 06/08/24 07:30
Plt Count 328 10^3/uL (130-400) 06/08/24 07:30
Sodium 142 mmol/L (135-145) 06/08/24 07:30
Potassium 4.8 mmol/L (3.5-5.1) 06/08/24 07:30
BUN 45 mg/dl (7-17) H 06/08/24 07:30
Creatinine 1.1 mg/dL (0.6-1.0) H 06/08/24 07:30
Glucose 132 mg/dl (70-99) H 06/08/24 07:30
Vital Signs and I&O:
Vital Signs
Temp Pulse Resp BP Pulse Ox
98.1 F 74 18 163/64 97
06/08/24 07:35 06/08/24 09:45 06/08/24 07:35 06/08/24 09:45 06/08/24 09:40
Vital Signs
Temp Pulse Resp BP Pulse Ox
98.1 F 74 18 163/64 97
06/08/24 07:35 06/08/24 09:45 06/08/24 07:35 06/08/24 09:45 06/08/24 09:40
Intake & Output
06/06/24 06/07/24 06/08/24 06/09/24
06:59 06:59 06:59 06:59
Intake Total 1690 / 1690 360 / 360 720 / 720
Output Total 1350 / 1350 1700 / 1700 930 / 930 750 / 750
Balance 340 / 340 -1340 / -1340 -210 / -210 -750 / -750
Physical Exam
Physical Exam
GEN: AAOx3
HEENT: mmm
LUNGS: No audible wheeze
CV: SR on tele
ABD: ND
EXT: No edema B/L
NEURO: Gross non-focal
SKIN: No rash
[2024-06-08] MEDS: NOVOLOG FLEXPEN-LOW RESISTANCE SC (13:15)
--- NOTE | 2024-06-08 13:18 | CM ---
Addendum entered by Janice Hinton 06/08/24 15:40:
Echo is still pending; transfer to [facility] likely not happening tonight, however [facility] can accept until 8PM.
CM will continue to follow for transfer tomorrow to [facility]. Pt and aware and agreeable.
Plan: Discharge to [facility] via w/c van transport.
[facility] Report: [phone]
[facility]
Addendum entered by Janice Hinton 06/08/24 14:35:
Jenifer and her have decided on transfer to [facility].
Discharge is pending an echo, or may be done outpatient if not able to be done today.
Plan: Discharge to [facility] via w/c van transport.
[facility] Report: [phone].
[facility]
Original Note:
Jenifer is cleared for discharge today. Pt with urinary retention; refuses a morrissey. SNF can accomodate straight cath; home health would be intermittent, so would need to be willing to learn straight cath process.
When speaking with Jenifer, she advised that her would prefer that she come home, but also mentioned [facility] as an option for SNF. Referral sent via [facility] and spoke with Blanca [facility]divia who has accepted for admission.
Pt with urinary retention; refuses a morrissey. SNF can accomodate straight cath; home health would be intermittent, so would need to be willing to learn straight cath process.
Await pt's 's arrival to the unit to finalize discharge plan.
[2024-06-08 15:20] VITALS: BP 133/60
--- NOTE | 2024-06-08 15:22 | W.PN.HOSP.TC ---
Addendum entered and electronically signed by Omar Razo MD 06/08/24 17:33:
Echocardiogram order report still pending. Will hold discharge for evening.
Patient will be discharged the morning tomorrow
Original Note:
Today's Communication/Plan
-
d/c snf rehab if TTE stable
Assessment / Plan
Assessment / Plan
CHEST CTA:
1. Severe calcific atherosclerotic plaque in the coronary arteries.
2. Mild cardiomegaly.
3. Mild inflammatory interstitial pneumonitis in the basilar segments of the lower lobes.
ABDOMEN and PELVIS:
1. Large amount of fecal material throughout the proximal colon suggesting SEVERE CONSTIPATION.
2. Small 5.8 cm tubular-shaped fluid collection in the gallbladder fossa adjacent to cholecystectomy surgical clips without surrounding inflammation.
3. Moderate pneumobilia consistent with previous biliary sphincterotomy.
4. Mild enlargement of the right lobe of the liver.
5. Moderate to severe pancreatic lipomatosis.
6. Moderate portacaval lymphadenopathy.
7. Mild to moderate chronic bilateral renal disease.
8. Severe calcific atherosclerotic plaque in the abdominal aorta and femoral arteries.
9. Previous hysterectomy.
10. Mild distention of the urinary bladder.
11. Severe multilevel discogenic degenerative disease and facet joint arthrosis in the lumbar spine.
12. Severe superior and inferior endplate fractures of L1 with near complete vertebral body collapse and retropulsion of the posterior cortex into the anterior epidural space.
HIDA
No scintigraphic evidence of common bile duct obstruction. No evidence to suggest bile leak. Findings consistent with reflux accumulation of intraluminal radiotracer within the duodenal bulb.
MRI abd
Heterogeneous signal in the gallbladder fossa, as described. Most consistent with postsurgical reactive soft tissue changes. The differential may include microabscess formation, though felt to be less likely given the absence of significant adjacent
inflammatory changes.
No ascites.
Subtle extrinsic compression along the left lateral margin of the distal common bile duct lumen. Possibly related to wall thickening which may be inflammatory or neoplastic. There is also suggestion of a 4.4 mm prevascular nodule adjacent pancreatic
head, possibly associated with a vessel, raising possibility of microaneurysm. A small neoplasm, such as neuroendocrine tumor may also be considered.
Diffuse atrophy with fatty replacement. Numerous tiny cystic structures. Nonspecific. May be related to chronic pancreatitis, with side branches distention, versus small branch type intraductal papillary mucinous neoplasm. No main pancreatic ductal
dilatation. No acute pancreatitis.

1. Gallbladder fossa fluid collection
Elevated T bilirubin
s/p lap cholecystectomy on 05/23
-Possible postoperative seroma versus infected fluid (clinically less likely )
-No significant abdominal pain/nausea
-Total bilirubin 3.1 with direct 1.8. ALT 31 AST 53 essentially normal at admission.
-Cover empirically for any cholangitis/infection with Zosyn for now
-General Surgery evaluated and HIDA did not show any blockage or bile leakage
-MRI abd report as above. Atypical finding of questionable pancreatic head nodule/CBD compression? Gi evaluated and considering OP EUS
2. Acute hypoxic resp insufficiency - Resolved
-CXR showing interstitial pneumonitis vs scarring
-CT chest PE neg, no significant parenchymal changes
-chest x-ray showing questionable interstitial pneumonitis versus pneumonia
-Stop further antibiotics, day 5/5 today.
-Procal elevated to 1.28, ProbNP ~ 1k. TTE in may 12 showing EGF 60-65% Grade I dysfunction
-off of o2 at this point.
3. Post op anemia from blood loss
Chronic Macrocytic anemia
h/o of Vit B12 def
-Status post 2 unit of PRBC this admission. hbg 8.6 - continue monitoring
-Denies melena/blood in stool.
-B12/Folate WNL
-TSH 8/FT4 1.58, LDH 572, Retic count 9.5%, Direct rocky neg
-Echocardiogram showing mitral regurgitation with eccentric regurgitation jets and question of possible valvulopathy causing intravascular hemolysis. Cardiology evaluated in light of chronic slow developing nature of mitral regurgitation clinically
low concern of valve causing problem. Repeat echocardiogram ordered to check any significant change
4. ALIREZA on CKDIIIA
Acute urinary retention
-Patient was holding upward of 1.1 L of urine on bladder scan, required to be put on catheter
-Creatinine rapidly improved
-Goddard removed and we discussed that patient may have neurogenic bladder/bladder laxity due to chronic morbidity and being hospitalized for some time now.
-Patient hesitant to have Goddard placed back in, agreeable to have straight catheterization
-added flomax to regimen
5. Type II DM - Uncontrolled
Episode of hypoglycemia
-A1c of 6.8
-Continue daytime Lantus
-Patient Hypoglycemia last night, decreasing Premeal insulin
-GI recommended regular diet due to poor oral intake likely contributing to fluctuating blood glucose
6. Hyponatremia
-minimal, continue monitoring.
7. Generalized weakness
-PT OT evaluation
8. Candidal vulvovaginitis
-Whitish mucosal lesion on examination, complaining of itching
-Provided 1 dose of fluconazole 150 mg , repeat dose of 150 mg today.
9. Fall
-Patient went to bathroom unassisted today and fell
-Ended up hitting head to side rail bathroom, CT head negative for acute abnormality
10. Essential hypertension
-As patient renal function has normalized we will resume back on regimen of amlodipine/valsartan
Lumbar spinal stenosis
History of mitral prolapse
history of
Full code
Anticipated Discharge: Today
Subjective/Interval History
-
Date of Service: June 08, 2024
No issues overnight
Patient still retaining large amount of urine, declined to have Goddard catheter placed, okay with straight catheterization
no pulmonary problems
Objective Data
-
Labs:
Laboratory Results
06/08/24
07:30
WBC 7.4
Hgb 8.7 L
Hct 27.5 L
Plt Count 328
Sodium 142
Potassium 4.8
Chloride 107
Carbon Dioxide 21 L
BUN 45 H
Creatinine 1.1 H
Glucose 132 H
Calcium 9.1
Vital Signs:
Vital Signs
Temp Pulse Resp BP Pulse Ox
98.1 F 74 18 163/64 97
06/08/24 07:35 06/08/24 09:45 06/08/24 07:35 06/08/24 09:45 06/08/24 09:40
I&O
06/07/24 06/08/24 06/09/24
06:59 06:59 06:59
Intake Total 360 / 360 720 / 720
Output Total 1700 / 1700 930 / 930 750 / 750
Balance -1340 / -1340 -210 / -210 -750 / -750
Review of Systems
-
Respiratory: Reports No Symptoms
Cardiac: Reports No Symptoms
Abdomen/GI: Reports No Symptoms
Physical Exam
-
General: No Apparent Distress and Comfortable
HEENT: Negative Oxygen
Respiratory: Clear to Auscultation
Cardiac: Regular Rhythm and S1/S2; Negative Murmur or Rub
GI: Soft, Nontender and Nondistended
Genito-urinary: Goddard (Clear yellow urine)
Musculoskeletal: No Edema
Neuro: Awake, Alert, Oriented, No Motor Deficits and Nonfocal/Grossly Intact
Psych: Calm
--- NOTE | 2024-06-08 16:11 | PTCARENOTE ---
Pt AAO x3, BUENO; OOB to BSC with assist x1/walker, pt moves slowly; c/o low back 'tailbone' discomfort with OOB activity. Refused OOB to chair activity. VSS. On room air- pulse ox 96%, no c/o SOB. Abd soft, rounded, kirit reg diet. Pt st cathed @
11:00 am for 750 ml clear lt rj urine (bladder scanned for 652 ml); pt DTV 1700 today. Abd incision areas LENORE, no drainage noted. Resting in bed at present. Will continue to monitor.
[2024-06-08 16:28] LABS: Glucose - Point of Care 160 mg/dl (70-99)
[2024-06-08] MEDS: LOVENOX 30 MG SC (17:51)
[2024-06-08 21:10] LABS: Glucose - Point of Care 177 mg/dl (70-99)
[2024-06-08] MEDS: MYSOLINE 100 MG PO (21:17)
[2024-06-08 23:10] VITALS: BP 135/61
[2024-06-08] MEDS: TYLENOL 650 MG PO (23:36)
[2024-06-08] MEDS: EMLA CREAM 1 GRAM TOPICAL (23:54)
[2024-06-09 07:03] VITALS: BP 138/62
[2024-06-09 07:55] LABS: Glucose - Point of Care 126 mg/dl (70-99)
[2024-06-09] MEDS: NOVOLOG FLEXPEN-LOW RESISTANCE SC (08:53)
[2024-06-09] MEDS: LANTUS 0.15 UNITS SC (09:06)
[2024-06-09] MEDS: NOVOLOG FLEXPEN 8 UNITS SC ×2 (09:07→13:44)
[2024-06-09] MEDS: LOW STRENGTH ASPIRIN 81 MG PO (09:08)
[2024-06-09] MEDS: NORVASC 10 MG PO (09:08)
[2024-06-09] MEDS: COREG 6.25 MG PO (09:08)
[2024-06-09] MEDS: CRESTOR 10 MG PO (09:08)
[2024-06-09] MEDS: TRICOR 48 MG PO (09:08)
[2024-06-09] MEDS: FOLVITE 1 MG PO (09:09)
[2024-06-09] MEDS: MIRALAX PO ×2 (09:09→09:11)
[2024-06-09] MEDS: TYLENOL 650 MG PO (09:09)
[2024-06-09] MEDS: LIDOCAINE 4% PATCH 1 PATCH TOPICAL (09:09)
--- NOTE | 2024-06-09 09:44 | W.PN.ONC ---
Today's Communication / Plan
-
Patient for discharge for rehab
G6PD pending
Outpatient PNH evaluation
Follow-up in the office
Business card with contact information provided
Impression
Impression
BENJAMIN negative hemolysis
Variable mild jaundice, direct and indirect
Moderate mitral regurgitation, with multiple jets of eccentric MR
Recent cholecystectomy
Plan
Plan
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
Haptoglobin undetectable and retic & LDH elevated - classic hemolytic anemia. BENJAMIN (rocky) NEGATIVE
Retic elevation suggests adequate marrow function so doubt 2 seperate causes of anemia (eg- MDS with concomitant BENJAMIN NEG VASQUEZ).
Check CD55/59 and Flaer for ? PNH.
Continue folic acid, transfuse as needed.
Decisions regarding SAMARIA and discussion regarding MVR vs TMVR (not available at ) out of my scope of medical knowledge
Subjective/Objective
Subjective/Objective
Patient without new complaints today. Anticipates discharge today as [facility].
Vital Signs:
Vital Signs
Temp Pulse Resp BP Pulse Ox
97.7 F 71 16 170/68 100
06/09/24 07:03 06/09/24 09:08 06/09/24 07:03 06/09/24 09:08 06/09/24 07:03
Alert oriented
Heart regular
Lungs without rales
Extremity symmetrical
Lab Results:
Laboratory Data
WBC 7.4 10^3/uL (4.8-10.8) 06/08/24 07:30
Hgb 8.7 g/dL (12.0-16.0) L 06/08/24 07:30
Plt Count 328 10^3/uL (130-400) 06/08/24 07:30
eGFR 50.80 06/08/24 07:30
[2024-06-09 10:26] LABS: Hematocrit 29.6 % (37.0-47.0); Hemoglobin 9.1 g/dL (12.0-16.0); Mean Corp Hgb Conc. 30.7 g/dL (33.0-37.0); Mean Corpuscular Hgb 32.5 pg (27.0-31.0); Mean Corpuscular Volume 105.7 fL (81.0-99.0); Mean Platelet Volume 10.3 fL (7.4-10.4); Platelet Count 377 10^3/uL (130-400); Red Cell Dist. Width 19.5 % (11.5-14.5); White Blood Cell Count 7.2 10^3/uL (4.8-10.8)
[2024-06-09 10:39] LABS: Blood Urea Nitrogen 40 mg/dl (7-17); Calcium 9.2 mg/dl (8.4-10.2); Carbon Dioxide 25 mmol/L (22-30); Chloride 105 mmol/L (98-107); Estimated Creatinine Clearance 37 ml/min; Glucose 137 mg/dl (70-99); Potassium 4.7 mmol/L (3.5-5.1); Sodium 142 mmol/L (135-145)
--- NOTE | 2024-06-09 12:19 | PTCARENOTE ---
Assumed care of pt from previous nurse. pt with some discomfort to back, managed with tylenol and repositioning. Pt call [facility] is within reach, pt rings mirella. will cont to monitor.
[2024-06-09 12:52] LABS: Glucose - Point of Care 187 mg/dl (70-99)
--- NOTE | 2024-06-09 13:26 | W.PN.HOSP.TC ---
Addendum entered and electronically signed by Omar Razo MD 06/10/24 14:25:
Add to diagnosis list
Presumed acute on chronic diastolic congestive heart failure
-patient require to 3 doses of IV Lasix for volume optimization and to help with hypoxia.
Original Note:
Today's Communication/Plan
-
d/c snf rehab
Assessment / Plan
Assessment / Plan
CHEST CTA:
1. Severe calcific atherosclerotic plaque in the coronary arteries.
2. Mild cardiomegaly.
3. Mild inflammatory interstitial pneumonitis in the basilar segments of the lower lobes.
ABDOMEN and PELVIS:
1. Large amount of fecal material throughout the proximal colon suggesting SEVERE CONSTIPATION.
2. Small 5.8 cm tubular-shaped fluid collection in the gallbladder fossa adjacent to cholecystectomy surgical clips without surrounding inflammation.
3. Moderate pneumobilia consistent with previous biliary sphincterotomy.
4. Mild enlargement of the right lobe of the liver.
5. Moderate to severe pancreatic lipomatosis.
6. Moderate portacaval lymphadenopathy.
7. Mild to moderate chronic bilateral renal disease.
8. Severe calcific atherosclerotic plaque in the abdominal aorta and femoral arteries.
9. Previous hysterectomy.
10. Mild distention of the urinary bladder.
11. Severe multilevel discogenic degenerative disease and facet joint arthrosis in the lumbar spine.
12. Severe superior and inferior endplate fractures of L1 with near complete vertebral body collapse and retropulsion of the posterior cortex into the anterior epidural space.
HIDA
No scintigraphic evidence of common bile duct obstruction. No evidence to suggest bile leak. Findings consistent with reflux accumulation of intraluminal radiotracer within the duodenal bulb.
MRI abd
Heterogeneous signal in the gallbladder fossa, as described. Most consistent with postsurgical reactive soft tissue changes. The differential may include microabscess formation, though felt to be less likely given the absence of significant adjacent
inflammatory changes.
No ascites.
Subtle extrinsic compression along the left lateral margin of the distal common bile duct lumen. Possibly related to wall thickening which may be inflammatory or neoplastic. There is also suggestion of a 4.4 mm prevascular nodule adjacent pancreatic
head, possibly associated with a vessel, raising possibility of microaneurysm. A small neoplasm, such as neuroendocrine tumor may also be considered.
Diffuse atrophy with fatty replacement. Numerous tiny cystic structures. Nonspecific. May be related to chronic pancreatitis, with side branches distention, versus small branch type intraductal papillary mucinous neoplasm. No main pancreatic ductal
dilatation. No acute pancreatitis.

1. Gallbladder fossa fluid collection
Elevated T bilirubin
s/p lap cholecystectomy on 05/23
-Possible postoperative seroma versus infected fluid (clinically less likely )
-No significant abdominal pain/nausea
-Total bilirubin 3.1 with direct 1.8. ALT 31 AST 53 essentially normal at admission.
-Cover empirically for any cholangitis/infection with Zosyn for now
-General Surgery evaluated and HIDA did not show any blockage or bile leakage
-MRI abd report as above. Atypical finding of questionable pancreatic head nodule/CBD compression? Gi evaluated and considering OP EUS
2. Acute hypoxic resp insufficiency - Resolved
-CXR showing interstitial pneumonitis vs scarring
-CT chest PE neg, no significant parenchymal changes
-chest x-ray showing questionable interstitial pneumonitis versus pneumonia
-Stop further antibiotics, day 5/5 today.
-Procal elevated to 1.28, ProbNP ~ 1k. TTE in may 12 showing EGF 60-65% Grade I dysfunction
-off of o2 at this point.
3. Post op anemia from blood loss
Chronic Macrocytic anemia
h/o of Vit B12 def
-Status post 2 unit of PRBC this admission. hbg 8.6 - continue monitoring
-Denies melena/blood in stool.
-B12/Folate WNL
-TSH 8/FT4 1.58, LDH 572, Retic count 9.5%, Direct rocky neg
-Echocardiogram showing mitral regurgitation with eccentric regurgitation jets and question of possible valvulopathy causing intravascular hemolysis. Cardiology evaluated in light of chronic slow developing nature of mitral regurgitation clinically
low concern of valve causing problem.
-Repeat echocardiogram did not show any significant change in severity/morphology of mitral valve
4. ALIREZA on CKDIIIA
Acute urinary retention
-Patient was holding upward of 1.1 L of urine on bladder scan, required to be put on catheter
-Creatinine rapidly improved
-Goddard removed and we discussed that patient may have neurogenic bladder/bladder laxity due to chronic morbidity and being hospitalized for some time now.
-Patient at risk of urinary retention and associated postrenal failure. I have discussed at length that patient should go back on rehab with Goddard catheter with repeat TOV , patient continue declining. Patient willing to have straight
catheterization PRN
-added flomax to regimen
5. Type II DM - Uncontrolled
Episode of hypoglycemia
-A1c of 6.8
-Continue daytime Lantus
-Patient Hypoglycemia last night, decreasing Premeal insulin
-GI recommended regular diet due to poor oral intake likely contributing to fluctuating blood glucose
6. Hyponatremia
-minimal, continue monitoring.
7. Generalized weakness
-PT OT evaluation
8. Candidal vulvovaginitis
-Whitish mucosal lesion on examination, complaining of itching
-Provided 1 dose of fluconazole 150 mg , repeat dose of 150 mg today.
9. Fall
-Patient went to bathroom unassisted today and fell
-Ended up hitting head to side rail bathroom, CT head negative for acute abnormality
10. Essential hypertension
-As patient renal function has normalized we will resume back on regimen of amlodipine/valsartan
Lumbar spinal stenosis
History of mitral prolapse
history of
Full code
Anticipated Discharge: Today
Subjective/Interval History
-
Date of Service: June 09, 2024
No new issues overnight
Objective Data
-
Labs:
Laboratory Results
06/09/24
09:20
WBC 7.2
Hgb 9.1 L
Hct 29.6 L
Plt Count 377
Sodium 142
Potassium 4.7
Chloride 105
Carbon Dioxide 25
BUN 40 H
Creatinine 1.1 H
Glucose 137 H
Calcium 9.2
Vital Signs:
Vital Signs
Temp Pulse Resp BP Pulse Ox
97.7 F 71 16 170/68 100
06/09/24 07:03 06/09/24 09:08 06/09/24 07:03 06/09/24 09:08 06/09/24 07:45
I&O
06/08/24 06/09/24 06/10/24
06:59 06:59 06:59
Intake Total 720 / 720 720 / 720
Output Total 930 / 930 1500 / 1500
Balance -210 / -210 -780 / -780
Review of Systems
-
Respiratory: Reports No Symptoms
Cardiac: Reports No Symptoms
Abdomen/GI: Reports No Symptoms
Physical Exam
-
General: No Apparent Distress and Comfortable
HEENT: Negative Oxygen
Respiratory: Clear to Auscultation
Cardiac: Regular Rhythm and S1/S2; Negative Murmur or Rub
GI: Soft, Nontender and Nondistended
Genito-urinary: Goddard (Clear yellow urine)
Musculoskeletal: No Edema
Neuro: Awake, Alert, Oriented, No Motor Deficits and Nonfocal/Grossly Intact
Psych: Calm
[2024-06-09] MEDS: NOVOLOG FLEXPEN-LOW RESISTANCE 1 UNITS SC (13:44)
[2024-06-09 14:40] VITALS: BP 136/64
[2024-06-09 21:56] LABS: Glu-6-Phosphate Dehydrogenase 18.1 U/g Hb (9.9-16.6)
[2024-06-10 11:49] LABS: Hepatitis B Core Ab, Total Negative (Negative); Hepatitis C Antibody Negative (Negative)
[2024-06-10 14:08] LABS: Hepatitis B Surface Antibody Indeterminate
--- NOTE | 2024-06-10 16:12 | W.DCSUMMARY ---
Discharge Summary
Discharge Data
Date of Admission: 06/01/24
Date of Discharge: 06/09/24
-
Pending Results: No
Hospital Course
Discharging Physician : Dr Oamr Razo
Disposition : SNF rehab
Primary care physician : Dr Ashleigh Otoole
Principal Discharge diagnosis :
Gallbladder fossa fluid collection, likely postoperative seroma
Elevated total bilirubin
Acute hypoxic respite insufficiency
Interstitial pneumonia
Acute on chronic diastolic congestive heart failure
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
Acute kidney injury on chronic disease stage IIIa
Acute urinary retention requiring Goddard catheter
Pancreatic head nodule
Distal bile duct narrowing
Candidal vulvovaginitis
Chronic Discharge diagnosis :
Vitamin B12 deficiency
Type 2 diabetes mellitus
Generalized weakness
Essential hypertension
Lumbar spinal stenosis
History of mitral prolapse
History of section
Hospital Course :
Patient is 78-year-old female with no mentioned past medical history came to ER for having new onset of generalized weakness and feeling jaundice. Patient underwent recent cholecystectomy/ERCP 2 weeks before and post discharge patient continued to
have lethargy/poor appetite. In ER workup showing patient anemic with hemoglobin drifted down from baseline. Patient was noted to be also minimally hypoxic. A CT chest angiogram done in ER ruled out any pulmonary embolism/pneumonia. Patient did
CT abdomen pelvis which showed fluid collection in gallbladder fossa.
General surgery was involved in care and there was question of patient having possible infectious seroma versus biliary leak. Patient was started on empiric antibiotics. Follow-up HIDA scan was done which did not show any biliary leak. An MRI
abdomen was also done which showed reactive changes after surgery and gallbladder fossa. Incidentally noted to having questionable distal CBD narrowing and a small pancreatic head nodule. GI was involved in care for further evaluation who
recommended outpatient follow-up and EUS.
For patient anemia patient was provided 1 unit of blood transfusion. Patient have chronic microcytic anemia and history of B12 deficiency, repeat B12 and folate levels were checked and within normal limit. Further workup showing patient having
minimal hemolysis going on. [facility] who felt patient no assessment related to mitral regurgitation related. A repeat echocardiogram was done and no significant changes were noted. Further studies were sent for
paroxysmal nocturnal hemoglobinuria and G6PD level check, result of which is pending at time of discharge. Patient will require follow-up with hematology in office.
Patient also developed new renal failure. As part of workup patient was found to having significant urinary retention and Goddard catheter was placed. Patient had improvement in renal function and was back to normal. Goddard catheter was removed and
patient continued to have some urinary retention issue although patient declined to have Goddard catheter put back in. Patient willing to have straight catheterization. Patient remains at risk of further urological issues unfortunately.
Patient also had minimal hypoxia, as mentioned above CT chest PE was negative for blood clot. Chest x-ray was showing questionable interstitial pneumonitis versus pneumonia as well. Patient was maintained on empiric antibiotics. Patient was given
trial of IV diuretic. Patient had improvement in hypoxia with complete resolution before discharge.
Patient also had candidal vulvovaginitis and was provided fluconazole doses.
Patient also had mechanical fall in the hospital no reported head injury. CT head was done post fall and did not show any acute abnormality.
Post medical stabilization [facility]
Important imaging findings :
None
Procedure findings :
None
Discharge Plan
-
Patient Disposition: [facility]/SNF
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
retention requiring catheter/straight catheterization, candidal vulvovaginitis
Condition: Fair
Diet: Regular
Activity: As tolerated
Driving Restrictions: No driving
Bathing Restrictions: OK to Shower
Blood Work: CBC in 1 week
Others Tests: Please do periodic bladder scan and if more than 400 mL urine in bladder will need straight catheterization
Activity Restrictions/Additional Instructions:
Follow up with your primary [employer] Clerk for further monitoring of mitral valve.

Referrals:
Ravinder Barrow DO [Active] -
Ashleigh Otoole MD [Family Provider] - in one week
Prescriptions:
New
folic acid 1 mg Tablet
1 mg PO DAILY Qty: 30 2RF
insulin aspart U-100 100 unit/mL (3 mL) Insulin Pen
8 unit SC AC Qty: 15 0RF
Insulin Glargine Lantus [Lantus] 15 UNITS
Subcutaneous Insulin Syringe [Syringe-Insulin] 0 UNIT
As Directed mls/hr SC DAILY
Ordered By: Omar Razo MD
Last Taken: 06/09/24 09:06 0.15 mls
tramadol 50 mg tablet
50 mg PO Q8H PRN (Reason: Mod sev pain) Qty: 10 0RF
tamsulosin [Flomax] 0.4 mg capsule
0.4 mg PO DAILY Qty: 30 0RF
Continued
cyanocobalamin (vitamin B-12) 1,000 mcg Tablet
1,000 mcg PO MOWEFR
carvedilol [Coreg] 3.125 mg Tablet
3.125 mg PO BID
rosuvastatin [Crestor] 10 mg Tablet
10 mg PO DAILY
metformin 500 mg Tablet Extended Release 24hr
1,000 mg PO BID
fenofibrate nanocrystallized [Tricor] 48 mg Tablet
48 mg PO DAILY
cholecalciferol (vitamin D3) [Vitamin D3] 25 mcg (1,000 unit) Tablet
25 mcg PO MOWEFR
Prolia 60 mg/mL Syringe
60 mg SC [id number]
Patient Comments:
Patient states that she had this injection in December of 2023.
primidone 50 mg Tablet
100 mg PO HS
acetaminophen 650 mg Tablet Extended Release
1,300 mg PO [id number] PRN (Reason: mild pain)
estradiol [Estrace] 0.01 % (0.1 mg/gram) Cream
1 g VAGINAL HS
amlodipine-valsartan 10-160 mg Tablet
0.5 tab PO DAILY
aspirin 81 mg Tablet,Chewable
81 mg PO DAILY Qty: 30 0RF
fluconazole 150 mg tablet
150 mg PO Q72H
lidocaine-prilocaine 2.5-2.5 % cream
1 applic topical TIDPRN PRN (Reason: vaginal pain)
Vagisil 20-3 % Cream
1 applic TOPICAL QID
polyethylene glycol 3350 [Miralax] 17 gram/dose powder
4 g PO DAILYPRN PRN (Reason: Constipation)
Rx Instructions:
start a laxative such as MIRALAX on day 2 after surgery if no bowel movement yet as long as no nausea/vomiting and passing gas
Discontinued
tramadol 50 mg tablet
25 - 50 mg PO Q6HPRN PRN (Reason: severe pain/breakthrough pain) Qty: 7 0RF
Discharge Orders:
Discharge Patient (As Directed); Ordered 06/09/24
Ordered By: Omar Razo
Discharge Date and Time
Discharge Date/Time: 06/09/24 14:50
Print Language: GEORGIAN
[2024-06-11 18:53] LABS: Cold Agglutinins <1:32 (<1:32)
== END 2024-06-09 14:50 | DRG 919 ==
LOC: 4 EAST ACU 22:19
PROVIDERS: Hospitalist; Nurse Practitioner Gerontology; Physician Assistant; ADMITTING PHYSICIAN Internal Medicine; ATTENDING PHYSICIAN Hospitalist; CONSULT PHYSICIAN Internal Medicine; CONSULT PHYSICIAN Surgery; EMERGENCY PHYSICIAN Emergency Medicine; FAMILY PHYSICIAN Student in an Organized Health Care Education/Training Program; OTHER PHYSICIAN Internal Medicine Hematology & Oncology; OTHER PHYSICIAN Internal Medicine Interventional Cardiology
PROC: 30233N1 Transfusion of Nonautologous Red Blood Cells into Peripheral Vein, Percutaneous Approach (ICD-10-PCS; 2024-06-02)
DX: K91.872 Postprocedural seroma of a digestive system organ or structure following a digestive system procedure (principal); I50.33 Acute on chronic diastolic (congestive) heart failure; D62 Acute posthemorrhagic anemia; E87.1 Hypo-osmolality and hyponatremia; N17.9 Acute kidney failure, unspecified; I13.0 Hypertensive heart and chronic kidney disease with heart failure and stage 1 through stage 4 chronic kidney disease, or unspecified chronic kidney disease; E11.22 Type 2 diabetes mellitus with diabetic chronic kidney disease; E78.00 Pure hypercholesterolemia, unspecified; I25.10 Atherosclerotic heart disease of native coronary artery without angina pectoris; D63.1 Anemia in chronic kidney disease; M81.0 Age-related osteoporosis without current pathological fracture; K59.00 Constipation, unspecified; Y83.8 Other surgical procedures as the cause of abnormal reaction of the patient, or of later complication, without mention of misadventure at the time of the procedure; N18.31 Chronic kidney disease, stage 3a; N76.0 Acute vaginitis; S09.90XA Unspecified injury of head, initial encounter; W18.39XA Other fall on same level, initial encounter; Y92.231 Patient bathroom in hospital as the place of occurrence of the external cause; R33.9 Retention of urine, unspecified; D53.9 Nutritional anemia, unspecified; G25.0 Essential tremor; I08.1 Rheumatic disorders of both mitral and tricuspid valves; J84.89 Other specified interstitial pulmonary diseases; K21.9 Gastro-esophageal reflux disease without esophagitis; R09.02 Hypoxemia; Z90.49 Acquired absence of other specified parts of digestive tract; R06.89 Other abnormalities of breathing; Z79.82 Long term (current) use of aspirin; Z79.84 Long term (current) use of oral hypoglycemic drugs; Z79.899 Other long term (current) drug therapy; Z11.52 Encounter for screening for COVID-19
CPT/HCPCS: 93308; 36600; 70450; 71046; 71275; 74018; 74177; 74183; 78226; 80048; 80053; 80076; 81003; 81015; 82248; 82607; 82728; 82746; 82805; 82955; 82962; 83010; 83615; 83690; 83880; 84145; 84439; 84443; 85025; 85027; 85045; 86157; 86704; 86706; 86803; 86850; 86880; 86900; 86901; 86920; 87811; 93005; 93321; 93325; 94640; 96374; 97162; 97166; 97530; 97535; 99285; A9537; A9575; P9016; Q9967